=== PATIENT | female | born 1935 | race African-American/Black ===

== ENCOUNTER 2017-06-25 17:47 | Inpatient (IN) | payer MEDICARE, OTHER ==
[~2017-06-25] VITALS: Ht 165.1 cm; Wt 56.4 kg
[2017-06-25 18:20] LABS: BASO % 0 % (0-3); EOS % 0 % (0-3); HEMATOCRIT 49.4 % (39.0-53.0); HEMOGLOBIN 16.1 g/dL (13.0-17.5); LYMPH # 0.7 x10^3/uL (1.0-4.8); LYMPH % 8 % (24-48); MEAN CORPUSCULAR HEMOGLOBIN 31 pg (25-35); MEAN CORPUSCULAR HGB CONC 33 g/dL (31-37); MEAN CORPUSCULAR VOLUME 93 fL (79-100); MONO % 2 % (0-9); NEUT % 90 % (31-73); PLATELET COUNT 160 x10^3/uL (140-400); RED BLOOD COUNT 5.29 x10^6/uL (4.30-5.70); WHITE BLOOD COUNT 8.3 x10^3/uL (4.0-11.0)
[2017-06-25 18:39] LABS: CALCIUM 9.4 mg/dL (8.5-10.1); GFR 87.2; POTASSIUM 4.4 mmol/L (3.5-5.1)
[2017-06-25 18:44] LABS: ALBUMIN 4.3 g/dL (3.4-5.0); ALBUMIN/GLOBULIN RATIO 1.1 (1.0-1.7); TOTAL BILIRUBIN 0.8 mg/dL (0.2-1.0); TOTAL PROTEIN 8.3 g/dL (6.4-8.2)
[2017-06-25 18:55] LABS: PLT ESTIMATE ADEQUATE (ADEQUATE)
[2017-06-25 19:06] LABS: BILIRUBIN,URINE NEGATIVE (NEG); GLUCOSE,URINE >=1000 mg/dL (NEG); NITRITE,URINE NEGATIVE (NEG); PROTEIN,URINE NEGATIVE (NEG-TRACE)
[2017-06-25 19:13] LABS: BACTERIA,URINE 0 /HPF (0-FEW); RBC,URINE 0 /HPF (0-2); SQUAMOUS EPITHELIAL CELL,UR FEW /LPF; WBC,URINE 0 /HPF (0-4)
[2017-06-25] MEDS ORDERED: NAPR500T8 PO (19:41)
[2017-06-25] MEDS ORDERED: TRAM50TA PO (20:08)
[2017-06-25] MEDS ORDERED: ZALE10CA44 PO (20:10)
[2017-06-25] MEDS ORDERED: TRAZ50TA15 PO (20:12)
[2017-06-25] MEDS ORDERED: PRED-220 PO (20:13)
[2017-06-25] MEDS ORDERED: LOSA25TA4 PO (20:13)
[2017-06-25] MEDS ORDERED: LIDOCAINE 2%/EPI 1:100,000 20 ML VIAL. IJ ONE (20:15)
[2017-06-25] MEDS ORDERED: fentaNYL PF VIAL 100 MCG/2 ML VIAL IV ONE (20:15)
[2017-06-25] MEDS ORDERED: BACITRACIN 50,000 UNIT in IV NORMAL SALINE 250ML 250 ML IRR ONE (20:15)
[2017-06-25] MEDS ORDERED: MIDAZOLAM HCL/PF 5 MG/5 ML VIAL. IV ONE (20:15)
--- NOTE | 2017-06-25 20:23 | PDOC ---
MODERATE SEDATION ASSESSMENT RISKS/ALTERNATIVES Risks/Alternatives Risks and alternatives of this type of sedation and procedure discussed with: RISK/ALTERNATIVES: Patient H & P ON CHART H & P H & P on chart and reviewed for co-morbid conditions and appropriate labs. H&P ON CHART: Yes STATUS PREG STATUS ASSESSED: Yes MEDS/ALLERGIES REVIEWED Meds/Allergies Reviewed Medications and Allergies including time and route of recently administered narcotics and sedatives. MEDS/ALLERGIES REVIEWED: Yes ASA RATING ASA RATING: II AIRWAY ASSESSMENT Airway Assessment Airway patency, oral function limitations, presence of caps, crowns, dentures, partials, and ability to extend neck assessed. AIRWAY ASSESSMENT: Yes MALLAMPATI SCORE MALLAMPATI SCORE: II PRE-SEDATION ASSESSMENT PRE-SEDATION ASSESSMENT: Yes OMERO YU MD Jun 25, 2017 20:23
--- NOTE | 2017-06-25 20:29 | PDOC2 ---
CONSULT Date of Consult Date of Consult DATE: 06/25/17 TIME: 20:24 Reason for Consult Reason for Consult: Bradycardia, third-degree heart block Referring Physician Referring Physician: Dr. Diane Identification/Chief Complaint Chief Complaint Weakness, fatigue and lightheadedness Problems: History of Present Illness Reason for Visit: This patient is a very pleasant 81-year-old lady that is active. For several days she has been feeling very weak and fatigued and she went today to see her family doctor. She was found to be bradycardic and referred to the emergency room. After arrival in the emergency room when she was monitored we saw that she was eating third degree complete heart block. The patient's ventricular rate was 30. She states that she has been having problems for the last few days trying to do anything and states that she feels faint at times especially if she tries to get up. The patient denies any prior heart problems. At the time that I saw the patient in the emergency room she was secondary talking to me with a heart rate of about 30 and in atrial rate of about 76. Past Medical History Cardiovascular: HTN Pulmonary: COPD Current Medications Current Medications Current Medications Dopamine HCl/ Dextrose 250 ml @ 0 mls/hr 1X ONCE IV ; Start 06/25/17 at 18:15; Stop 06/25/17 at 18:16; Status DC Midazolam HCl (Versed) 5 mg 1X ONCE IV ; Start 06/25/17 at 20:15; Stop at 20:16; Status DC Fentanyl Citrate (Fentanyl 2ml Vial) 100 mcg 1X ONCE IV ; Start 06/25/17 at 20: 15; Stop 06/25/17 at 20:16; Status DC Lidocaine/ Epinephrine (Xylocaine 2%-Epi 1:100,000) 40 ml 1X ONCE IJ ; Start at 20:15; Stop 06/25/17 at 20:16; Status DC Bacitracin 00550 unit/Sodium Chloride 250 ml @ 0 mls/hr 1X ONCE IRR ; Start at 20:15; Stop 06/25/17 at 20:16; Status DC Cefazolin Sodium 50 ml @ 100 mls/hr 1X ONCE IV ; Start 06/25/17 at 20:15; Stop 06/25/17 at 20:44 Active Scripts Active Reported Losartan Potassium 25 Mg Tablet 25 Mg PO DAILY Prednisone 10 Mg Tablet 10 Mg PO [id number] Trazodone Hcl 50 Mg Tablet 50 Mg PO HS Sonata (Zaleplon) 10 Mg Capsule 10 Mg PO QHS Tramadol Hcl 50 Mg Tablet 1 Tab PO TID Naproxen 500 Mg Tablet.dr 500 Mg PO Allergies Allergies: Coded Allergies: No Known Drug Allergies (Unverified , 06/25/17) Physical Exam General: Alert, Oriented X3, Cooperative HEENT: PERRLA Lungs: Clear to auscultation Heart: Other (bradycardic, S1, S2, one to 2/6 systolic murmur.) Abdomen: Normal bowel sounds, Soft Extremities: No edema Vitals VITALS Vital Signs Date Time Temp Pulse Resp B/P (MAP) Pulse Ox O2 Delivery O2 Flow Rate FiO2 06/25/17 19:55 34 23 178/73 (108) 94 Room Air 06/25/17 18:00 97.7 97.7 Labs Labs Laboratory Tests Test 06/25/17 18:02 06/25/17 18:50 White Blood Count 8.3 x10^3/uL (4.0-11.0) Red Blood Count 5.29 x10^6/uL (4.30-5.70) Hemoglobin 16.1 g/dL (13.0-17.5) Hematocrit 49.4 % (39.0-53.0) Mean Corpuscular Volume 93 fL (79-100) Mean Corpuscular Hemoglobin 31 pg (25-35) Mean Corpuscular Hemoglobin Concent 33 g/dL (31-37) Red Cell Distribution Width 14.0 % (11.5-14.5) Platelet Count 160 x10^3/uL (140-400) Neutrophils (%) (Auto) 90 % (31-73) Lymphocytes (%) (Auto) 8 % (24-48) Monocytes (%) (Auto) 2 % (0-9) Eosinophils (%) (Auto) 0 % (0-3) Basophils (%) (Auto) 0 % (0-3) Neutrophils # (Auto) 7.5 x10^3uL (1.8-7.7) Lymphocytes # (Auto) 0.7 x10^3/uL (1.0-4.8) Monocytes # (Auto) 0.1 x10^3/uL (0.0-1.1) Eosinophils # (Auto) 0.0 x10^3/uL (0.0-0.7) Basophils # (Auto) 0.0 x10^3/uL (0.0-0.2) Segmented Neutrophils % 90 % (35-66) Band Neutrophils % 2 % (0-9) Lymphocytes % 6 % (24-48) Monocytes % 2 % (0-10) Platelet Estimate Adequate (ADEQUATE) Giant Platelets Occ Sodium Level 139 mmol/L (136-145) Potassium Level 4.4 mmol/L (3.5-5.1) Chloride Level 100 mmol/L (98-107) Carbon Dioxide Level 27 mmol/L (21-32) Anion Gap 12 (6-14) Blood Urea Nitrogen 12 mg/dL (8-26) Creatinine 1.0 mg/dL (0.7-1.3) Estimated GFR (Cockcroft-Gault) 87.2 BUN/Creatinine Ratio 12 (6-20) Glucose Level 257 mg/dL (70-99) Calcium Level 9.4 mg/dL (8.5-10.1) Total Bilirubin 0.8 mg/dL (0.2-1.0) Aspartate Amino Transf (AST/SGOT) 29 U/L (15-37) Alanine Aminotransferase (ALT/SGPT) 37 U/L (16-63) Alkaline Phosphatase 79 U/L (46-116) FU-Ezg-R-Type Natriuretic Peptide 781 pg/mL (0-449) Total Protein 8.3 g/dL (6.4-8.2) Albumin 4.3 g/dL (3.4-5.0) Albumin/Globulin Ratio 1.1 (1.0-1.7) Thyroid Stimulating Hormone (TSH) 0.471 uIU/mL (0.358-3.74) Urine Collection Type Unknown Urine Color Yellow Urine Clarity Clear Urine pH 6.0 Urine Specific [place] 1.015 Urine Protein Negative mg/dL (NEG-TRACE) Urine Glucose (UA) >=1000 mg/dL (NEG) Urine Ketones (Stick) Negative mg/dL (NEG) Urine Blood Negative (NEG) Urine Nitrite Negative (NEG) Urine Bilirubin Negative (NEG) Urine Urobilinogen Dipstick 1.0 mg/dL (0.2 mg/dL) Urine Leukocyte Esterase Negative (NEG) Urine RBC 0 /HPF (0-2) Urine WBC 0 /HPF (0-4) Urine Squamous Epithelial Cells Few /LPF Urine Bacteria 0 /HPF (0-FEW) Urine Mucus Slight /LPF Laboratory Tests Test 06/25/17 18:02 06/25/17 18:50 White Blood Count 8.3 x10^3/uL (4.0-11.0) Red Blood Count 5.29 x10^6/uL (4.30-5.70) Hemoglobin 16.1 g/dL (13.0-17.5) Hematocrit 49.4 % (39.0-53.0) Mean Corpuscular Volume 93 fL (79-100) Mean Corpuscular Hemoglobin 31 pg (25-35) Mean Corpuscular Hemoglobin Concent 33 g/dL (31-37) Red Cell Distribution Width 14.0 % (11.5-14.5) Platelet Count 160 x10^3/uL (140-400) Neutrophils (%) (Auto) 90 % (31-73) Lymphocytes (%) (Auto) 8 % (24-48) Monocytes (%) (Auto) 2 % (0-9) Eosinophils (%) (Auto) 0 % (0-3) Basophils (%) (Auto) 0 % (0-3) Neutrophils # (Auto) 7.5 x10^3uL (1.8-7.7) Lymphocytes # (Auto) 0.7 x10^3/uL (1.0-4.8) Monocytes # (Auto) 0.1 x10^3/uL (0.0-1.1) Eosinophils # (Auto) 0.0 x10^3/uL (0.0-0.7) Basophils # (Auto) 0.0 x10^3/uL (0.0-0.2) Segmented Neutrophils % 90 % (35-66) Band Neutrophils % 2 % (0-9) Lymphocytes % 6 % (24-48) Monocytes % 2 % (0-10) Platelet Estimate Adequate (ADEQUATE) Giant Platelets Occ Sodium Level 139 mmol/L (136-145) Potassium Level 4.4 mmol/L (3.5-5.1) Chloride Level 100 mmol/L (98-107) Carbon Dioxide Level 27 mmol/L (21-32) Anion Gap 12 (6-14) Blood Urea Nitrogen 12 mg/dL (8-26) Creatinine 1.0 mg/dL (0.7-1.3) Estimated GFR (Cockcroft-Gault) 87.2 BUN/Creatinine Ratio 12 (6-20) Glucose Level 257 mg/dL (70-99) Calcium Level 9.4 mg/dL (8.5-10.1) Total Bilirubin 0.8 mg/dL (0.2-1.0) Aspartate Amino Transf (AST/SGOT) 29 U/L (15-37) Alanine Aminotransferase (ALT/SGPT) 37 U/L (16-63) Alkaline Phosphatase 79 U/L (46-116) [place]-Uws-H-Type Natriuretic Peptide 781 pg/mL (0-449) Total Protein 8.3 g/dL (6.4-8.2) Albumin 4.3 g/dL (3.4-5.0) Albumin/Globulin Ratio 1.1 (1.0-1.7) Thyroid Stimulating Hormone (TSH) 0.471 uIU/mL (0.358-3.74) Urine Collection Type Unknown Urine Color Yellow Urine Clarity Clear Urine pH 6.0 Urine Specific [place] 1.015 Urine Protein Negative mg/dL (NEG-TRACE) Urine Glucose (UA) >=1000 mg/dL (NEG) Urine Ketones (Stick) Negative mg/dL (NEG) Urine Blood Negative (NEG) Urine Nitrite Negative (NEG) Urine Bilirubin Negative (NEG) Urine Urobilinogen Dipstick 1.0 mg/dL (0.2 mg/dL) Urine Leukocyte Esterase Negative (NEG) Urine RBC 0 /HPF (0-2) Urine WBC 0 /HPF (0-4) Urine Squamous Epithelial Cells Few /LPF Urine Bacteria 0 /HPF (0-FEW) Urine Mucus Slight /LPF Assessment/Plan Assessment/Plan Patient comes in with near syncope and in third-degree complete heart block. Her labs in the ER except for the blood sugar were all normal. In view of this and the patient's situations and history I feel that she needs to have a permanent pacemaker. We discussed the situation options and risks and he was decided to proceed tonight with a insertion of a permanent dual-chamber pacemaker. An informed consent was obtained and the patient is being taken to the catheter lab now. Thank you very much for asking me to participate in the care of this patient OMERO YU MD Jun 25, 2017 20:29
--- NOTE | 2017-06-25 20:49 | PHYS DOC ---
Past Medical History Past Medical History: COPD, Hypertension Past Surgical History: No Surgical History Alcohol Use: None Drug Use: None Adult General Chief Complaint Chief Complaint: OTHER COMPLAINTS HPI HPI Patient is a 81 year old -[place] female with history of hypertension who presents the ED with dizziness past 4 days. Patient was evaluated at her primary care physician's office earlier today and diagnosed with bradycardia with third-degree heart block. Patient arrives by private vehicle walks steady gait. She reports dizziness upon walking. She denies chest pain, palpitations, shortness of breath, rolling. Patient's systolic blood pressures in the 160s. [] Review of Systems Review of Systems Review symptoms as per history of present illness. All other review symptoms are negative. Current Medications Current Medications Current Medications Medications (Trade) Dose Ordered Sig/Keira Start Time Stop Time Status Last Admin Dose Admin Dopamine HCl/ Dextrose 250 ml @ 0 mls/hr 1X ONCE 06/25/17 18:15 06/25/17 18:16 DC Allergies Allergies Allergies Coded Allergies Type Severity Reaction Last Updated Verified No Known Drug Allergies 06/25/17 No Physical Exam Physical Exam Constitutional: Well developed, well nourished, no acute distress, non-toxic appearance. HENT: Normocephalic, atraumatic, bilateral external ears normal, oropharynx moist, no oral exudates, nose normal. Eyes: PERRLA, EOMI, conjunctiva normal, no discharge. Neck: Normal range of motion, no tenderness, supple, no stridor. Cardiovascular: Bradycardic.. Lungs & Thorax: Bilateral breath sounds clear to auscultation Abdomen: Bowel sounds normal, soft, no tenderness, no masses, no pulsatile masses. Skin: Warm, dry, no erythema, no rash. Back: No tenderness, no CVA tenderness. Extremities: No tenderness, no cyanosis, no clubbing, ROM intact, no edema. Neurologic: Alert and oriented X 3, normal motor function, normal sensory function, no focal deficits noted. Psychologic: Affect normal, judgement normal, mood normal. Current Patient Data Vital Signs Vital Signs Date Time Temp Pulse Resp B/P (MAP) Pulse Ox O2 Delivery O2 Flow Rate FiO2 06/25/17 18:52 34 24 195/74 (114) 94 Room Air 06/25/17 18:00 97.7 97.7 Lab Values Laboratory Tests Test 06/25/17 18:02 06/25/17 18:50 White Blood Count 8.3 x10^3/uL (4.0-11.0) Red Blood Count 5.29 x10^6/uL (4.30-5.70) Hemoglobin 16.1 g/dL (13.0-17.5) Hematocrit 49.4 % (39.0-53.0) Mean Corpuscular Volume 93 fL (79-100) Mean Corpuscular Hemoglobin 31 pg (25-35) Mean Corpuscular Hemoglobin Concent 33 g/dL (31-37) Red Cell Distribution Width 14.0 % (11.5-14.5) Platelet Count 160 x10^3/uL (140-400) Neutrophils (%) (Auto) 90 % (31-73) H Lymphocytes (%) (Auto) 8 % (24-48) L Monocytes (%) (Auto) 2 % (0-9) Eosinophils (%) (Auto) 0 % (0-3) Basophils (%) (Auto) 0 % (0-3) Neutrophils # (Auto) 7.5 x10^3uL (1.8-7.7) Lymphocytes # (Auto) 0.7 x10^3/uL (1.0-4.8) L Monocytes # (Auto) 0.1 x10^3/uL (0.0-1.1) Eosinophils # (Auto) 0.0 x10^3/uL (0.0-0.7) Basophils # (Auto) 0.0 x10^3/uL (0.0-0.2) Segmented Neutrophils % 90 % (35-66) H Band Neutrophils % 2 % (0-9) Lymphocytes % 6 % (24-48) L Monocytes % 2 % (0-10) Platelet Estimate Adequate (ADEQUATE) Giant Platelets Occ Sodium Level 139 mmol/L (136-145) Potassium Level 4.4 mmol/L (3.5-5.1) Chloride Level 100 mmol/L (98-107) Carbon Dioxide Level 27 mmol/L (21-32) Anion Gap 12 (6-14) Blood Urea Nitrogen 12 mg/dL (8-26) Creatinine 1.0 mg/dL (0.7-1.3) Estimated GFR (Cockcroft-Gault) 87.2 BUN/Creatinine Ratio 12 (6-20) Glucose Level 257 mg/dL (70-99) H Calcium Level 9.4 mg/dL (8.5-10.1) Total Bilirubin 0.8 mg/dL (0.2-1.0) Aspartate Amino Transferase (AST) 29 U/L (15-37) Alanine Aminotransferase (ALT) 37 U/L (16-63) Alkaline Phosphatase 79 U/L (46-116) FW-Fwo-I-Type Natriuretic Peptide 781 pg/mL (0-449) H Total Protein 8.3 g/dL (6.4-8.2) H Albumin 4.3 g/dL (3.4-5.0) Albumin/Globulin Ratio 1.1 (1.0-1.7) Thyroid Stimulating Hormone (TSH) 0.471 uIU/mL (0.358-3.74) Urine Collection Type Unknown Urine Color Yellow Urine Clarity Clear Urine pH 6.0 Urine Specific [place] 1.015 Urine Protein Negative mg/dL (NEG-TRACE) Urine Glucose (UA) >=1000 mg/dL (NEG) Urine Ketones (Stick) Negative mg/dL (NEG) Urine Blood Negative (NEG) Urine Nitrite Negative (NEG) Urine Bilirubin Negative (NEG) Urine Urobilinogen Dipstick 1.0 mg/dL (0.2 mg/dL) Urine Leukocyte Esterase Negative (NEG) Urine RBC 0 /HPF (0-2) Urine WBC 0 /HPF (0-4) Urine Squamous Epithelial Cells Few /LPF Urine Bacteria 0 /HPF (0-FEW) Urine Mucus Slight /LPF Laboratory Tests 06/25/17 18:02 Laboratory Tests 06/25/17 18:02 EKG EKG [EKG: third Degree AV block, rate 30's Radiology/Procedures Radiology/Procedures [] Course & Med Decision Making Course & Med Decision Making Pertinent Labs and Imaging studies reviewed. (See chart for details) [Patient was supposed to be a direct admit to this hospital but was confused and checked into through the emergency department. Patient's family member's currently in the hospital being cared for Dr. Hill. Patient requests that Dr. Hill's care for her as well. Dr. Hill consult at for ED evaluation and management. Patient transferred to [facility] for permanent pacemaker placement. Dr. barry agrees to admit. ] Dragon Disclaimer Dragon Disclaimer This electronic medical record was generated, in whole or in part, using a voice recognition dictation system. Departure Departure Impression: Primary Impression: Third degree AV block Disposition: ADMITTED INPATIENT Admitting Physician: Brice Hill Condition: GUARDED Referrals: KENNETH WTAKINS MD (PCP) LUIS ALBERTO MILES DO Jun 25, 2017 20:49
[2017-06-25] MEDS ORDERED: ONDANSETRON PF 4 MG/2 ML VIAL. IV PRN (21:15)
[2017-06-25] MEDS ORDERED: IOHEXOL 300 MG/ML 100ML VIAL. ONE (21:16)
[2017-06-25] MEDS: IV NORMAL SALINE 1000ML BAG 1,000 ML IV SCH (21:38)
[2017-06-25 21:59] VITALS: BP 137/70
--- NOTE | 2017-06-25 22:12 | PDOC4 ---
PROCEDURE Procedure PROCEDURE NOTE Procedure: Insertion of dual-chamber permanent pacemaker Preoperative diagnosis: Near syncope, symptomatic bradycardia, third-degree heart block. Postoperative diagnosis: Near syncope, symptomatic bradycardia, third-degree heart block. Procedure note: This patient came in with symptomatic bradycardia and found to be in third- degree heart block. I discussed the situation options and risks with the patient and the family and he was decided to proceed with insertion of a permanent pacemaker as an emergency. After obtaining informed consent the patient was taken to the catheter lab. The left shoulder area was prepped and draped in the usual fashion. Antibiotic protocols were followed. The area was infiltrated with Xylocaine. The skin was incised and then with blunt dissection a pocket was created. Using a tool wire Seldinger technique I then placed a sheath in the subclavian vein. Through that sheath a lead was advanced all the way to the RA and then into the RV once I was satisfied with its positioning the lead active fixation device was deployed and thresholds were checked and found to be normal. The sheath was removed. Over the other wire a second peel-away sheath was then advanced and then another pacing lead was advanced all the way to the right atrium. A J stylette was then advanced and with this we were able to position the lead and the active fixation device was then deployed. Thresholds were checked and found to be normal. The peel-away sheath was then removed. Both leads were sustained sutured in place. A pacer generator was then connected to the leads after checking the identity of each lead. These were [employer] Ted pacing leads and his [employer] Ted pacer generator. After the connections were done the function of the generator was checked and found to be normal. The pocket was then irrigated with antibiotic solution and then the generator was placed in the pocket. The pocket was then closed with 3 layers of running sutures. The skin edges were approximated with Dermabond. After the Dermabond was dry, a dressing was applied to the area. The patient was then transferred to her room in satisfactory condition after tolerating the procedure rather well. OMERO YU MD Jun 25, 2017 22:12
[2017-06-25] MEDS ORDERED: HYDROcodone/APAP 5/325MG 1 TAB TABLET PO PRN (22:15)
[2017-06-25 22:39] VITALS: BP 167/73
[2017-06-25] MEDS ORDERED: ZOLPIDEM 5 MG TABLET. PO PRN (23:15)
[2017-06-25 23:37] VITALS: BP 138/73
[2017-06-25 23:43] VITALS: BP 134/69
[2017-06-25] MEDS: traMADol 50 MG TABLET PO SCH (23:46)
[2017-06-25] MEDS: traZODone 50 MG TABLET. PO SCH (23:46)
[2017-06-25 23:58] VITALS: BP 140/75
[2017-06-26] VITALS (9 sets, daily range): BP systolic 113–177; BP diastolic 55–97
[2017-06-26] MEDS ORDERED: NITROGLYCERIN OINT 1 GM PACKET. TP ONE (03:00)
--- NOTE | 2017-06-26 06:41 | EKG ---
[facility] [address] [place] [address] Test Date: 2017-06-26 Test Time: 06:30:47 Pat Name: FLAVIO MANZANO Department: Room: 205 1 Gender: F [employer]: LE : 1935 Requested By: OMERO YU Order Number: [id number] Reading MD: Dar Hernandes Measurements Intervals [place] Rate: 60 P: 65 FL: 190 QRS: 101 QRSD: 176 T: -74 QT: 498 QTc: 503 Interpretive Statements PROBABLE SINUS RHYTHM, CANNOT RULE OUT PACED BEATS LEFT ATRIAL ABNORMALITY RIGHTWARD AXIS NON SPECIFIC INTRAVENTRICULAR BLOCK QRS(T) CONTOUR ABNORMALITY CONSISTENT WITH HIGH LATERAL INFARCT AGE UNDETERMINED ABNORMAL ECG RI6.01 No previous ECG available for comparison Electronically Signed On 07-04-2017 16:32:40 CDT by Dar Hernandes
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
--- NOTE | 2017-06-26 07:43 | EKG ---
[facility] [address] [place] [address] Test Date: 2017-06-25 Test Time: 17:56:29 Pat Name: FLAVIO MANZANO Department: Room: 205 1 Gender: F Hook Up: : 1935 Requested By: ADDISON ROBERTSON Order Number: [id number] Reading MD: Dar Hernandes Measurements Intervals [place] Rate: 35 P: 122 [place]: 218 QRS: 90 QRSD: 134 T: 36 QT: 574 QTc: 438 Interpretive Statements SINUS BRADYCARDIA S1,S2,S3 PATTERN RIGHT BUNDLE BRANCH BLOCK QRS(T) CONTOUR ABNORMALITY CONSIDER ANTEROSEPTAL MYOCARDIAL DAMAGE NON SPECIFIC QRS ABNORMALITY CONSIDER INFERIOR MYOCARDIAL DAMAGE RI6.01 Unconfirmed report No previous ECG available for comparison Electronically Signed On 07-04-2017 12:55:47 CDT by Dar Hernandes
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
[2017-06-26] MEDS: IV NORMAL SALINE 1000ML BAG 1,000 ML IV SCH (10:23)
[2017-06-26] MEDS ORDERED: DEXTROSE 50% 25 GM / 50ML DISP.SYRIN. IV PRN (10:30)
--- NOTE | 2017-06-26 10:31 | PDOC ---
Provider Note Provider Note Pt seen.H&P dictated. #[id number] ADDISON ROBERTSON MD Jun 26, 2017 10:31
[2017-06-26] MEDS ORDERED: IOHEXOL 300 MG/ML 75 ML VIAL IV ONE (10:45)
[2017-06-26] MEDS ORDERED: IOHEXOL 240 MG/ML 50ML VIAL. PO ONE (10:45)
[2017-06-26] MEDS: traMADol 50 MG TABLET PO SCH ×3 (10:46→20:43)
[2017-06-26] MEDS: LINAGLIPTIN 5 MG TABLET PO SCH (10:46)
[2017-06-26] MEDS: LOSARTAN POTASSIUM 25 MG TABLET. PO SCH (10:47)
[2017-06-26] MEDS: predniSONE 10 MG TABLET PO SCH (10:48)
--- NOTE | 2017-06-26 10:53 | HP ---
ADMIT DATE: 06/25/2017 PATIENT LOCATION: 205. REASON FOR ADMISSION TO THE HOSPITAL: Dizziness, bradycardia, third degree heart block. HISTORY OF PRESENT ILLNESS: The patient is a 81-year-old female, patient seen in the office for the first time, she was not happy with her PCP and decided to change the PCP, came to the office with complaints of dizziness and lightheadedness, and she was found to have heart rate of 30. EKG shows third degree heart block. The patient was recommended admission to the hospital, but directly she went home and came back later and came to the Emergency Room, and she was found to have a third-degree heart block, was seen by Cardiology. The patient's family knows Dr. Hill who happened to be there in the Emergency Room at that time and taken to cardiac suite and the patient had a dual chamber permanent pacemaker placed. PAST MEDICAL HISTORY: History of hypertension, lately she has been dizzy, chronic obstructive pulmonary disease. Denies any history of previous heart problems. PAST SURGICAL HISTORY: No major surgeries. ALLERGIES: No known drug allergies. MEDICATIONS: At home, she is taking trazodone 50 mg for sleep, tramadol for pain, naproxen, losartan 25 mg, she was on hold secondary to dizziness. PERSONAL HISTORY: Smoked at least 1 pack for 30 years, cut down to 1/3 pack lately. Denies alcohol or street drugs. FAMILY HISTORY: Positive for hypertension, diabetes, heart disease. REVIEW OF SYMPTOMS: CARDIAC: Denies any chest pain. GASTROINTESTINAL: No nausea or vomiting. The patient has lost significant weight, 20 pounds in the last 3 months. Rest of the 14-system was reviewed and negative. PHYSICAL EXAMINATION: GENERAL: The patient is not in any distress. VITAL SIGNS: At the time of admission shows temperature 97, pulse 36, respirations 16, blood pressure 170/72, 100% on room air. HEENT: Head is atraumatic. Pupils equal. Oral cavity: No congestion. No teeth. NECK: Supple. CHEST: Symmetrical, had a pacemaker placed around left side of the chest, some bulge present. CARDIOVASCULAR: S1, S2. No murmurs. LUNGS: Clear to auscultation. Decreased breath sounds. ABDOMEN: Soft. No mass palpable. EXTERNAL GENITALIA: No Zimmer. RECTAL: Deferred. EXTREMITIES: No calf tenderness, no edema. Pulses 1+. NEUROLOGIC: Cranial nerves intact. Power 5/5 in all extremities. LABORATORY DATA: Shows a white count of 8, hemoglobin 16, platelets 160. Electrolytes show sodium 139, potassium 4.4, chloride 100, bicarbonate 27, BUN 12, creatinine 1.0, glucose 257. Liver function tests were normal. BNP 781. Albumin 4.3. TSH 0.4. Urine is negative except for sugar more than 1000 in the urine. Chest x-ray shows emphysema. EKG showed third-degree heart block. FINAL IMPRESSION: 1. Dizziness secondary to bradycardia. 2. Third-degree atrioventricular block. 3. Emphysema. 4. New onset of diabetes. 5. Significant weight loss. 6. History of smoking. PLAN: At this time, was admit to the hospital, had a permanent pacemaker placed by Cardiology, dual chamber. We will get a CT scan chest, abdomen and pelvis for weight loss, rule out other causes. The patient is found to be diabetic. We will check A1c, start on sliding scale insulin and start on Tradjenta. Check cholesterol, thyroid and see how the patient's condition improves. Smoking counseling was done. I would recommend flu and pneumonia shot at the time of discharge. ADDISON ROBERTSON MD DR: KITA/birdie JOB#: [id number] / [id number]
[2017-06-26] MEDS: INSULIN ASPART 300 UNITS/3 ML INSULN.PEN SQ SCH ×2 (12:00→17:00)
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
--- NOTE | 2017-06-26 16:13 | PDOC ---
PROGRESS NOTES Subjective Subjective No chest pains. She is very weak. Pacemaker functioning normally. Chest x-ray shows no pneumothorax. Objective Objective Vital Signs Date Time Temp Pulse Resp B/P (MAP) Pulse Ox O2 Delivery O2 Flow Rate FiO2 06/26/17 11:46 17 97 Room Air 06/26/17 11:00 97.8 60 177/97 (123) 97.8 06/25/17 21:59 2.0 Physical Exam Physical Exam No significant changes in cardiac exam Assessment Assessment Patient has a pacemaker that is functioning normally. We need to get her blood pressure controlled with medications. I agree with present plan. Home soon. Problems Medical Problems: (1) Third degree AV block Status: Acute Comment Review of Relevant I have reviewed the following items dusty (where applicable) has been applied. Labs Laboratory Tests Test 06/25/17 18:02 06/25/17 18:50 06/26/17 12:19 White Blood Count 8.3 x10^3/uL (4.0-11.0) Red Blood Count 5.29 x10^6/uL (4.30-5.70) Hemoglobin 16.1 g/dL (13.0-17.5) Hematocrit 49.4 % (39.0-53.0) Mean Corpuscular Volume 93 fL (79-100) Mean Corpuscular Hemoglobin 31 pg (25-35) Mean Corpuscular Hemoglobin Concent 33 g/dL (31-37) Red Cell Distribution Width 14.0 % (11.5-14.5) Platelet Count 160 x10^3/uL (140-400) Neutrophils (%) (Auto) 90 % (31-73) Lymphocytes (%) (Auto) 8 % (24-48) Monocytes (%) (Auto) 2 % (0-9) Eosinophils (%) (Auto) 0 % (0-3) Basophils (%) (Auto) 0 % (0-3) Neutrophils # (Auto) 7.5 x10^3uL (1.8-7.7) Lymphocytes # (Auto) 0.7 x10^3/uL (1.0-4.8) Monocytes # (Auto) 0.1 x10^3/uL (0.0-1.1) Eosinophils # (Auto) 0.0 x10^3/uL (0.0-0.7) Basophils # (Auto) 0.0 x10^3/uL (0.0-0.2) Segmented Neutrophils % 90 % (35-66) Band Neutrophils % 2 % (0-9) Lymphocytes % 6 % (24-48) Monocytes % 2 % (0-10) Platelet Estimate Adequate (ADEQUATE) Giant Platelets Occ Sodium Level 139 mmol/L (136-145) Potassium Level 4.4 mmol/L (3.5-5.1) Chloride Level 100 mmol/L (98-107) Carbon Dioxide Level 27 mmol/L (21-32) Anion Gap 12 (6-14) Blood Urea Nitrogen 12 mg/dL (8-26) Creatinine 1.0 mg/dL (0.7-1.3) Estimated GFR (Cockcroft-Gault) 87.2 BUN/Creatinine Ratio 12 (6-20) Glucose Level 257 mg/dL (70-99) Calcium Level 9.4 mg/dL (8.5-10.1) Total Bilirubin 0.8 mg/dL (0.2-1.0) Aspartate Amino Transf (AST/SGOT) 29 U/L (15-37) Alanine Aminotransferase (ALT/SGPT) 37 U/L (16-63) Alkaline Phosphatase 79 U/L (46-116) BF-[id number]-[id number]-Type Natriuretic Peptide 781 pg/mL (0-449) Total Protein 8.3 g/dL (6.4-8.2) Albumin 4.3 g/dL (3.4-5.0) Albumin/Globulin Ratio 1.1 (1.0-1.7) Thyroid Stimulating Hormone (TSH) 0.471 uIU/mL (0.358-3.74) Urine Collection Type Unknown Urine Color Yellow Urine Clarity Clear Urine pH 6.0 Urine Specific [place] 1.015 Urine Protein Negative mg/dL (NEG-TRACE) Urine Glucose (UA) >=1000 mg/dL (NEG) Urine Ketones (Stick) Negative mg/dL (NEG) Urine Blood Negative (NEG) Urine Nitrite Negative (NEG) Urine Bilirubin Negative (NEG) Urine Urobilinogen Dipstick 1.0 mg/dL (0.2 mg/dL) Urine Leukocyte Esterase Negative (NEG) Urine RBC 0 /HPF (0-2) Urine WBC 0 /HPF (0-4) Urine Squamous Epithelial Cells Few /LPF Urine Bacteria 0 /HPF (0-FEW) Urine Mucus Slight /LPF Glucose (Fingerstick) 73 mg/dL (70-99) Laboratory Tests Test 06/25/17 18:02 06/25/17 18:50 06/26/17 12:19 White Blood Count 8.3 x10^3/uL (4.0-11.0) Red Blood Count 5.29 x10^6/uL (4.30-5.70) Hemoglobin 16.1 g/dL (13.0-17.5) Hematocrit 49.4 % (39.0-53.0) Mean Corpuscular Volume 93 fL (79-100) Mean Corpuscular Hemoglobin 31 pg (25-35) Mean Corpuscular Hemoglobin Concent 33 g/dL (31-37) Red Cell Distribution Width 14.0 % (11.5-14.5) Platelet Count 160 x10^3/uL (140-400) Neutrophils (%) (Auto) 90 % (31-73) Lymphocytes (%) (Auto) 8 % (24-48) Monocytes (%) (Auto) 2 % (0-9) Eosinophils (%) (Auto) 0 % (0-3) Basophils (%) (Auto) 0 % (0-3) Neutrophils # (Auto) 7.5 x10^3uL (1.8-7.7) Lymphocytes # (Auto) 0.7 x10^3/uL (1.0-4.8) Monocytes # (Auto) 0.1 x10^3/uL (0.0-1.1) Eosinophils # (Auto) 0.0 x10^3/uL (0.0-0.7) Basophils # (Auto) 0.0 x10^3/uL (0.0-0.2) Segmented Neutrophils % 90 % (35-66) Band Neutrophils % 2 % (0-9) Lymphocytes % 6 % (24-48) Monocytes % 2 % (0-10) Platelet Estimate Adequate (ADEQUATE) Giant Platelets Occ Sodium Level 139 mmol/L (136-145) Potassium Level 4.4 mmol/L (3.5-5.1) Chloride Level 100 mmol/L (98-107) Carbon Dioxide Level 27 mmol/L (21-32) Anion Gap 12 (6-14) Blood Urea Nitrogen 12 mg/dL (8-26) Creatinine 1.0 mg/dL (0.7-1.3) Estimated GFR (Cockcroft-Gault) 87.2 BUN/Creatinine Ratio 12 (6-20) Glucose Level 257 mg/dL (70-99) Calcium Level 9.4 mg/dL (8.5-10.1) Total Bilirubin 0.8 mg/dL (0.2-1.0) Aspartate Amino Transf (AST/SGOT) 29 U/L (15-37) Alanine Aminotransferase (ALT/SGPT) 37 U/L (16-63) Alkaline Phosphatase 79 U/L (46-116) FO-Zxc-[id number]-Type Natriuretic Peptide 781 pg/mL (0-449) Total Protein 8.3 g/dL (6.4-8.2) Albumin 4.3 g/dL (3.4-5.0) Albumin/Globulin Ratio 1.1 (1.0-1.7) Thyroid Stimulating Hormone (TSH) 0.471 uIU/mL (0.358-3.74) Urine Collection Type Unknown Urine Color Yellow Urine Clarity Clear Urine pH 6.0 Urine Specific [place] 1.015 Urine Protein Negative mg/dL (NEG-TRACE) Urine Glucose (UA) >=1000 mg/dL (NEG) Urine Ketones (Stick) Negative mg/dL (NEG) Urine Blood Negative (NEG) Urine Nitrite Negative (NEG) Urine Bilirubin Negative (NEG) Urine Urobilinogen Dipstick 1.0 mg/dL (0.2 mg/dL) Urine Leukocyte Esterase Negative (NEG) Urine RBC 0 /HPF (0-2) Urine WBC 0 /HPF (0-4) Urine Squamous Epithelial Cells Few /LPF Urine Bacteria 0 /HPF (0-FEW) Urine Mucus Slight /LPF Glucose (Fingerstick) 73 mg/dL (70-99) Medications Current Medications Dopamine HCl/ Dextrose 250 ml @ 0 mls/hr 1X ONCE IV ; Start 06/25/17 at 18:15; Stop 06/25/17 at 18:16; Status DC Midazolam HCl (Versed) 5 mg 1X ONCE IV Last administered on 06/25/17 21:37; Start 06/25/17 at 20:15; Stop 06/25/17 at 20:16; Status DC Fentanyl Citrate (Fentanyl 2ml Vial) 100 mcg 1X ONCE IV Last administered on 21:37; Start 06/25/17 at 20:15; Stop 06/25/17 at 20:16; Status DC Lidocaine/ Epinephrine (Xylocaine 2%-Epi 1:100,000) 40 ml 1X ONCE IJ Last administered on 06/25/17 21:35; Start 06/25/17 at 20:15; Stop 06/25/17 at 20:16 ; Status DC Bacitracin 35813 unit/Sodium Chloride 250 ml @ 0 mls/hr 1X ONCE IRR Last administered on 06/25/17 21:35; Start 06/25/17 at 20:15; Stop 06/25/17 at 20:16 ; Status DC Cefazolin Sodium 50 ml @ 100 mls/hr 1X ONCE IV Last administered on 21:36; Start 06/25/17 at 20:15; Stop 06/25/17 at 20:44; Status DC Ondansetron HCl (Zofran) 4 mg PRN Q8HRS PRN IV NAUSEA/VOMITING; Start 06/25/17 at 21:15; Stop 06/26/17 at 21:14 Sodium Chloride 1,000 ml @ 75 mls/hr [id number] IV Last administered on 21:38; Start 06/25/17 at 21:03; Stop 06/26/17 at 21:02 Iohexol (Omnipaque 300 Mg/ml) 100 ml STK-MED ONCE .ROUTE ; Start 06/25/17 at 21: 16; Stop 06/25/17 at 21:17; Status DC Cefazolin Sodium 1 gm/Sodium Chloride 50 ml @ 100 mls/hr 1X ONCE IV ; Start at 23:00; Stop 06/25/17 at 23:29; Status Cancel Acetaminophen/ Hydrocodone Bitart (Lortab 5/325) 1 tab PRN Q4HRS PRN PO MILD PAIN Last administered on 06/26/17 06:06; Start 06/25/17 at 22:15 Cefazolin Sodium 1 gm/Sodium Chloride 50 ml @ 100 mls/hr 1X ONCE IV Last administered on 06/26/17 02:11; Start 06/26/17 at 02:00; Stop 06/26/17 at 02:29 ; Status DC Losartan Potassium (Cozaar) 25 mg DAILY PO Last administered on 06/26/17 10:47 ; Start 06/26/17 at 09:00 Prednisone (Prednisone) 10 mg [id number] PO Last administered on 06/26/17 10: 48; Start 06/26/17 at 08:00 Tramadol HCl (Ultram) 50 mg TID PO Last administered on 06/26/17 10:46; Start 06/25/17 at 23:30 Trazodone HCl (Desyrel) 50 mg HS PO Last administered on 06/25/17 23:46; Start 06/25/17 at 23:30 Zolpidem Tartrate (Ambien) 5 mg PRN QHS PRN PO INSOMNIA, MAY REPEAT X1; Start 06/25/17 at 23:15 Nitroglycerin (Nitro-Bid Oint) 1 inch 1X ONCE TP ; Start 06/26/17 at 03:00; Stop 06/26/17 at 03:01; Status Cancel Insulin Aspart (NovoLOG) 0-7 UNITS TIDWMEALS SQ ; Start 06/26/17 at 12:00 Dextrose (Dextrose 50%-Water Syringe) 12.5 gm PRN Q15MIN PRN IV SEE COMMENTS; Start 06/26/17 at 10:30 Linagliptin (Tradjenta) 5 mg DAILY PO Last administered on 06/26/17 10:46; Start 06/26/17 at 10:30 Iohexol (Omnipaque 240 Mg/ml) 30 ml 1X ONCE PO Last administered on 06/26/17 10:45; Start 06/26/17 at 10:45; Stop 06/26/17 at 10:46; Status DC Iohexol (Omnipaque 300 Mg/ml) 75 ml 1X ONCE IV Last administered on 06/26/17 10:45; Start 06/26/17 at 10:45; Stop 06/26/17 at 10:46; Status DC Active Scripts Active Reported Losartan Potassium 25 Mg Tablet 25 Mg PO DAILY Prednisone 10 Mg Tablet 10 Mg PO [id number] Trazodone Hcl 50 Mg Tablet 50 Mg PO HS Sonata (Zaleplon) 10 Mg Capsule 10 Mg PO QHS Tramadol Hcl 50 Mg Tablet 1 Tab PO TID Naproxen 500 Mg Tablet.dr 500 Mg PO Vitals/I & O Vital Sign - Last 24 Hours 06/25/17 06/25/17 06/25/17 06/25/17 18:00 18:22 18:32 18:42 Temp 97.7 97.7 Pulse 36 34 34 34 Resp 16 19 20 22 B/P (MAP) 170/72 (104) 140/62 (88) 164/69 (100) 168/76 (106) Pulse Ox 100 98 96 94 O2 Delivery Room Air Room Air Room Air Room Air 06/25/17 06/25/17 06/25/17 06/25/17 18:52 19:02 19:15 19:25 Pulse 34 34 34 34 Resp 24 21 19 22 B/P (MAP) 195/74 (114) 114/68 (83) 131/68 (89) 175/78 (110) Pulse Ox 94 95 94 93 O2 Delivery Room Air Room Air Room Air Room Air 06/25/17 06/25/17 06/25/17 06/25/17 19:35 19:45 19:55 20:02 Pulse 34 33 34 35 Resp 19 17 23 20 B/P (MAP) 179/62 (101) 153/67 (95) 178/73 (108) 177/77 (110) Pulse Ox 94 94 94 96 O2 Delivery Room Air Room Air Room Air Room Air 06/25/17 06/25/17 06/25/17 06/25/17 20:12 20:22 21:37 21:59 Pulse 35 35 60 Resp 28 19 12 19 B/P (MAP) 148/72 (97) 173/88 (116) Pulse Ox 96 96 100 100 O2 Delivery Room Air Room Air Nasal Cannula Nasal Cannula O2 Flow Rate 2.0 2.0 06/25/17 06/25/17 06/25/17 06/25/17 22:30 22:30 22:39 23:00 Temp 97.5 97.5 Pulse 67 62 Resp 20 20 B/P (MAP) 167/73 (104) Pulse Ox 96 O2 Delivery Room Air Room Air 06/25/17 06/25/17 06/25/17 06/25/17 23:37 23:43 23:46 23:58 Pulse 60 60 60 Resp 22 B/P (MAP) 138/73 (94) 134/69 (90) 140/75 (96) Pulse Ox 94 O2 Delivery Room Air 9/06/26/17 06/26/17 06/26/17 00:58 02:25 02:58 03:00 Temp 97.7 97.7 Pulse 70 62 62 60 Resp 20 B/P (MAP) 118/70 (86) 113/60 (77) 120/55 (76) Pulse Ox 95 97 95 O2 Delivery Room Air Room Air Room Air 06/26/17 06/26/17 06/26/17 06/26/17 03:58 06:06 07:00 07:06 Temp 97.8 97.8 Pulse 60 60 Resp 22 16 20 B/P (MAP) 121/63 (82) 159/79 (105) Pulse Ox 96 97 O2 Delivery Room Air Room Air 06/26/17 06/26/17 06/26/17 06/26/17 08:00 10:46 10:47 11:00 Temp 97.8 97.8 Pulse 60 60 Resp 17 16 B/P (MAP) 159/79 177/97 (123) Pulse Ox 97 97 O2 Delivery Room Air Room Air Room Air 06/26/17 11:46 Resp 17 Pulse Ox 97 O2 Delivery Room Air OMERO YU MD Jun 26, 2017 16:13
--- NOTE | 2017-06-26 16:22 | CARD ---
APPROVED REPORT PROCEDURES Insertion Dual Chamber Pacemaker SEDATION TIME: 76 MINUTES CONCLUSION [facility] PROCEDURE Patient Name: Berta Johnson Number: [id number] Date of : 1935Patient Status: Admitted Inpatient Attending Doctor: Rosa [facility] Number: [id number] PROCEDURE NOTE PROCEDURE Procedure PROCEDURE NOTE Procedure: Insertion of dual-chamber permanent pacemaker Preoperative diagnosis: Near syncope, symptomatic bradycardia, third-degree heart block. Postoperative diagnosis: Near syncope, symptomatic bradycardia, third-degree heart block. Procedure note: This patient came in with symptomatic bradycardia and found to be in third-degree heart block. I discussed the situation options and risks with the patient and the family and he was decided to pro ceed with insertion of a permanent pacemaker as an emergency. After obtaining informed consent the patient was taken to the catheter lab. The left shoulder area was prepped and draped in the usual fashion. Antibiotic protocols were followed. The area was infiltrated with Xylocaine. The skin was incised and then with blunt dissection a pocket was created. Using a tool wire Seldinger technique I then placed a sheath in the subclavian vein. Through that sheath a lead was advanced all the way to the RA and then into the RV once I was satisfi ed with its positioning the lead active fixation device was deployed and thresholds were checked and found to be normal. The sheath was removed. Over the other wire a second peel-away sheath was then advanced and then another pacing lead was adva nced all the way to the right atrium. A J stylette was then advanced and with this we were able to po sition the lead and the active fixation device was then deployed. Thresholds were checked and found to be normal. The peel-away sheath was then removed. Both leads were sustained sutured in place. A pacer generator was then connected to the leads after checking the identity of each lead. These were [employer] pacing leads and his [employer] pacer generator. After the connections were done the function of the generator was checked and found to be normal. The pocket was then irrigated with antibiotic solution and then the generator was placed in the pocke t. The pocket was then closed with 3 layers of running sutures. The skin edges were approximated with Dermabond. After the Dermabond was dry, a dressing was applied to the area. The patient was then transferred to her room in satisfactory condition after tolerating the procedure rather well. OMERO YU [facility] [place] 2016 22:12
[2017-06-26] MEDS ORDERED: ALPRAZolam 0.25 MG TABLET PO PRN (16:45)
[2017-06-26] MEDS: NICOTINE 14MG PATCH. TD SCH (17:00)
[2017-06-26] MEDS: traZODone 50 MG TABLET. PO SCH (20:43)
[2017-06-27 04:16] LABS: CHOLESTEROL/HDL RATIO 1.9
[2017-06-27] MEDS ORDERED: SUFentanil 100 MCG/2 ML AMPUL. ONE (06:27)
[2017-06-27] MEDS ORDERED: ROCURONIUM 100 MG/10 ML VIAL. ONE (06:27)
[2017-06-27] MEDS ORDERED: MIDAZOLAM HCL/PF 2 MG/2 ML VIAL. ONE (06:27)
[2017-06-27] MEDS ORDERED: HEPARIN 30,000 UNIT/30 ML VIAL. ONE ×3 (06:30→08:22)
[2017-06-27] MEDS ORDERED: AMINOCAPROIC ACID 5,000 MG/20 ML VIAL. IV ONE ×3 (06:30)
[2017-06-27] MEDS ORDERED: LIDOCAINE 2% PF Vial for OR 5 ML VIAL. ONE (06:30)
[2017-06-27] MEDS ORDERED: NITROGLYCERIN PREMIX 0 ML IV ONE (06:30)
[2017-06-27] MEDS ORDERED: PHENYLEPHRINE 10 MG/ML VIAL. ONE ×3 (06:30→06:31)
[2017-06-27] MEDS ORDERED: ETOMIDATE 20 MG/10 ML VIAL. IV ONE (06:31)
[2017-06-27] MEDS ORDERED: ISOFLURANE > 120 MINUTES. IH ONE (06:31)
[2017-06-27] MEDS ORDERED: EPINEPHrine 1 MG/ML VIAL ONE (06:58)
[2017-06-27 07:00] VITALS: BP 143/88
[2017-06-27] MEDS ORDERED: LIDOCAINE 1% PF 2 ML VIAL. ONE (07:17)
[2017-06-27] MEDS: INSULIN ASPART 300 UNITS/3 ML INSULN.PEN SQ SCH (08:00)
[2017-06-27] MEDS: LOSARTAN POTASSIUM 25 MG TABLET. PO SCH (08:21)
[2017-06-27] MEDS: LINAGLIPTIN 5 MG TABLET PO SCH (08:21)
[2017-06-27] MEDS: NICOTINE 14MG PATCH. TD SCH (08:21)
[2017-06-27] MEDS: traMADol 50 MG TABLET PO SCH ×2 (08:24→09:20)
[2017-06-27] MEDS: predniSONE 10 MG TABLET PO SCH (08:25)
--- NOTE | 2017-06-27 10:09 | PDOC ---
PROGRESS NOTES Subjective Subjective pt feels ok Objective Objective Vital Signs Date Time Temp Pulse Resp B/P (MAP) Pulse Ox O2 Delivery O2 Flow Rate FiO2 06/27/17 08:24 20 97 Room Air 06/27/17 08:21 60 143/88 06/27/17 07:00 97.8 97.8 06/26/17 19:25 2.0 Physical Exam Abdomen: Normal bowel sounds, Soft Heart: Other (bradycardic, S1, S2, one to 2/6 systolic murmur.) Extremities: No edema General: Alert, Oriented X3, Cooperative HEENT: PERRLA Lungs: Clear to auscultation MUSCULOSKELETAL: No deformity Neuro: Normal speech Psych/Mental Status: Mental status NL Skin: No rashes Diagnosis Problem List Problems Medical Problems: (1) Third degree AV block Status: Acute Assessment Assessment Problems Medical Problems: (1) Third degree AV block Status: Acute FINAL IMPRESSION: 1. Dizziness secondary to bradycardia. 2. Third-degree atrioventricular block. 3. Emphysema. 4. New onset of diabetes. 5. Significant weight loss. 6. History of smoking. PLAN: labs ok ct chest -ve for major problems. ct abd and pelvis neg for major problems. s/p pacemaker . home today. At this time, was admit to the hospital, had a permanent pacemaker placed by Cardiology, dual chamber. We will get a CT scan chest, abdomen and pelvis for weight loss, rule out other causes. The patient is found to be diabetic. We will check A1c, start on sliding scale insulin and start on Tradjenta. Check cholesterol, thyroid and see how the patient's condition improves. Smoking counseling was done. I would recommend flu and pneumonia shot at the time of discharge. Problems: Plan Plan of Care Problems Medical Problems: (1) Third degree AV block Status: Acute Comment Review of Relevant I have reviewed the following items dusty (where applicable) has been applied. Labs Laboratory Tests Test 06/26/17 12:19 06/26/17 17:32 06/26/17 20:42 06/27/17 03:30 Glucose (Fingerstick) 73 mg/dL (70-99) 141 mg/dL (70-99) 80 mg/dL (70-99) Triglycerides Level 39 mg/dL (0-150) Cholesterol Level 132 mg/dL (0-200) LDL Cholesterol, Calculated 54 mg/dL (0-100) VLDL Cholesterol, Calculated 8 mg/dL (0-40) Non-HDL Cholesterol Calculated 62 mg/dL (0-129) HDL Cholesterol 70 mg/dL (40-60) Cholesterol/HDL Ratio 1.9 Test 06/27/17 07:55 Glucose (Fingerstick) 69 mg/dL (70-99) Medications Current Medications Alprazolam (Xanax) 0.25 mg PRN Q8HRS PRN PO ANXIETY / AGITATION Last administered on 06/26/17 17:47; Start 06/26/17 at 16:45 Dextrose (Dextrose 50%-Water Syringe) 12.5 gm PRN Q15MIN PRN IV SEE COMMENTS; Start 06/26/17 at 10:30 Insulin Aspart (NovoLOG) 0-7 UNITS TIDWMEALS SQ ; Start 06/26/17 at 12:00 Iohexol (Omnipaque 240 Mg/ml) 30 ml 1X ONCE PO Last administered on 06/26/17 10:45; Start 06/26/17 at 10:45; Stop 06/26/17 at 10:46; Status DC Iohexol (Omnipaque 300 Mg/ml) 75 ml 1X ONCE IV Last administered on 06/26/17 10:45; Start 06/26/17 at 10:45; Stop 06/26/17 at 10:46; Status DC Lidocaine HCl (Xylocaine-Mpf 1% Vial) 2 ml STK-MED ONCE .ROUTE ; Start 06/27/17 at 07:17; Stop 06/27/17 at 07:18; Status DC Linagliptin (Tradjenta) 5 mg DAILY PO Last administered on 06/27/17 08:21; Start 06/26/17 at 10:30 Nicotine (Nicoderm Cq 14mg) 1 patch DAILY TD Last administered on 06/27/17 08: 21; Start 06/26/17 at 17:00 Vitals/I & O Vital Sign - Last 24 Hours 06/26/17 06/26/17 06/26/17 06/26/17 10:46 10:47 11:00 15:00 Temp 97.8 97.6 97.8 97.6 Pulse 60 60 60 Resp 17 16 16 B/P (MAP) 159/79 177/97 (123) 152/90 (110) Pulse Ox 97 97 98 O2 Delivery Room Air Room Air Room Air 06/26/17 06/26/17 06/26/17 06/26/17 19:15 19:25 20:43 21:45 Temp 97.6 97.6 Pulse 62 Resp 18 16 16 B/P (MAP) 142/77 (98) Pulse Ox 94 96 O2 Delivery Room Air Room Air Room Air Room Air O2 Flow Rate 2.0 06/26/17 06/27/17 06/27/17 06/27/17 22:28 07:00 08:00 08:21 Temp 98.0 97.8 98.0 97.8 Pulse 60 60 60 Resp 16 18 B/P (MAP) 167/74 (105) 143/88 (106) 143/88 Pulse Ox 93 97 O2 Delivery Room Air Room Air 06/27/17 08:24 Resp 20 Pulse Ox 97 O2 Delivery Room Air ADDISON ROBERTSON MD Jun 27, 2017 10:09
[2017-06-27] MEDS ORDERED: LINA5TAB4 PO (10:13)
[2017-06-27 11:00] VITALS: BP 132/81
[2017-06-27] MEDS ORDERED: FLU VACC QS2017-18 (36MOS+)/PF 0.5 ML SYRINGE. VAX IM ONE (12:00)
--- NOTE | 2017-06-28 23:03 | PDOC ---
Provider Note Provider Note Discharge summary dictated. #[id number] ADDISON ROBERTSON MD Jun 28, 2017 23:02
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
== END 2017-06-27 12:40 | disposition home or self-care (01) | DRG 244 ==
LOC: ER 17:47 → EDSEX 19:00 → 2 NORTH 19:00
PROVIDERS: ADMIT Internal Medicine; ATTEND Internal Medicine
PROC: 0JH606Z Insertion of Pacemaker, Dual Chamber into Chest Subcutaneous Tissue and Fascia, Open Approach (ICD-10-PCS; principal; 2017-06-25)
PROC: 02H63JZ Insertion of Pacemaker Lead into Right Atrium, Percutaneous Approach (ICD-10-PCS; 2017-06-25)
PROC: 02HK3JZ Insertion of Pacemaker Lead into Right Ventricle, Percutaneous Approach (ICD-10-PCS; 2017-06-25)
DX: I44.2 Atrioventricular block, complete (principal); E27.8 Other specified disorders of adrenal gland; K76.89 Other specified diseases of liver; J44.9 Chronic obstructive pulmonary disease, unspecified; E11.9 Type 2 diabetes mellitus without complications; I10 Essential (primary) hypertension; R00.1 Bradycardia, unspecified; F17.200 Nicotine dependence, unspecified, uncomplicated; J68.4 Chronic respiratory conditions due to chemicals, gases, fumes and vapors; R63.4 Abnormal weight loss; Z82.49 Family history of ischemic heart disease and other diseases of the circulatory system; Z83.3 Family history of diabetes mellitus; Z68.20 Body mass index [BMI] 20.0-20.9, adult; J43.9 Emphysema, unspecified
CPT/HCPCS: 33208; 36415; 71010; 71020; 71260; 74177; 80053; 80061; 81001; 82962; 83036; 83880; 84443; 85007; 85025; 90686; 93005; 99152; 99153; A4314; C1785; C1898; J0171; J0690; J1644; J1815; J2250; J3010; J3490; J7030; J7050; J7512; Q9966; Q9967; 97530; 99285-25; J2001

== ENCOUNTER 2017-09-10 18:42 | Emergency (ER) | payer OTHER ==
[~2017-09-10] VITALS: Ht 170.2 cm; Wt 56.2 kg
[~2017-09-10 18:42] MED LIST: LINA5TAB4 PO; LOSA25TA4 PO; NAPR500T8 PO; PRED-220 PO; TRAM50TA PO; TRAZ50TA15 PO; ZALE10CA44 PO
--- NOTE | 2017-09-10 19:22 | PHYS DOC ---
Past Medical History Past Medical History: COPD, Hypertension Past Surgical History: No Surgical History Additional Past Surgical Histo: pacer Alcohol Use: None Drug Use: None Adult General Chief Complaint Chief Complaint: NAUSEA/VOMITING/DIARRHA HPI HPI Patient is a 82 year old F who presents with nausea/vomiting/diarrhea for the past day. Patient states all day she's been having these symptoms every time she eats she vomits. Patient denies any fevers. Patient denies any abdominal pain. Patient denies any dysuria. Patient states yesterday she was feeling just fine. Patient denies any chest pain or shortness of breath and has no other complaints. Review of Systems Review of Systems GEN: Denies fevers, chills, sweats HEENT: Denies blurred vision, sore throat CV: Denies chest pain RESP: Denies shortness of air, cough GI: + n/v/d NEURO: Denies confusion, dizziness MSK: Denies weakness, joint pain/swelling All other systems were reviewed and found to be within normal limits, except as documented in this note. Current Medications Current Medications Current Medications Medications (Trade) Dose Ordered Sig/Keira Start Time Stop Time Status Last Admin Dose Admin Info (Do NOT chart on this entry -- for MONITORING) 1 each PRN DAILY PRN 09/10/17 22:30 09/12/17 22:29 Iohexol (Omnipaque 300 Mg/ml) 75 ml 1X ONCE 09/10/17 22:30 09/10/17 22:31 DC 09/10/17 22:47 75 ML Metoclopramide HCl (Reglan Vial) 10 mg 1X ONCE 09/10/17 22:30 09/10/17 22:31 DC 09/10/17 22:28 10 MG Ondansetron HCl (Zofran) 4 mg STK-MED ONCE 09/10/17 20:25 09/10/17 20:26 DC Sodium Chloride 1,000 ml @ 1,000 mls/hr 1X ONCE 09/10/17 19:30 09/10/17 20:29 DC 09/10/17 19:30 1,000 MLS/HR Allergies Allergies Allergies Coded Allergies Type Severity Reaction Last Updated Verified No Known Drug Allergies 06/25/17 No Physical Exam Physical Exam GEN.: No apparent distress. Alert and oriented. HEENT: Head is normocephalic, atraumatic NECK: Supple. LUNGS: CTAB. HEART: RRR, S1, S2 present. Peripheral pulses intact ABDOMEN: Soft, nontender. Positive bowel sounds. EXTREMITIES: Without any cyanosis. NEUROLOGIC: Normal speech, normal tone PSYCHIATRIC: Normal affect, normal mood. SKIN: No ulcerations Current Patient Data Vital Signs Vital Signs Date Time Temp Pulse Resp B/P (MAP) Pulse Ox O2 Delivery O2 Flow Rate FiO2 09/10/17 18:48 98.2 60 18 173/87 (115) 95 Room Air 98.2 Lab Values Laboratory Tests Test 09/10/17 18:51 09/10/17 20:17 White Blood Count 9.4 x10^3/uL (4.0-11.0) Red Blood Count 5.14 x10^6/uL (3.50-5.40) Hemoglobin 15.8 g/dL (12.0-15.5) H Hematocrit 47.5 % (36.0-47.0) H Mean Corpuscular Volume 93 fL (79-100) Mean Corpuscular Hemoglobin 31 pg (25-35) Mean Corpuscular Hemoglobin Concent 33 g/dL (31-37) Red Cell Distribution Width 14.3 % (11.5-14.5) Platelet Count 178 x10^3/uL (140-400) Neutrophils (%) (Auto) 77 % (31-73) H Lymphocytes (%) (Auto) 17 % (24-48) L Monocytes (%) (Auto) 6 % (0-9) Eosinophils (%) (Auto) 0 % (0-3) Basophils (%) (Auto) 1 % (0-3) Neutrophils # (Auto) 7.2 x10^3uL (1.8-7.7) Lymphocytes # (Auto) 1.5 x10^3/uL (1.0-4.8) Monocytes # (Auto) 0.5 x10^3/uL (0.0-1.1) Eosinophils # (Auto) 0.0 x10^3/uL (0.0-0.7) Basophils # (Auto) 0.1 x10^3/uL (0.0-0.2) Sodium Level 142 mmol/L (136-145) Potassium Level 3.9 mmol/L (3.5-5.1) Chloride Level 104 mmol/L (98-107) Carbon Dioxide Level 29 mmol/L (21-32) Anion Gap 9 (6-14) Blood Urea Nitrogen 8 mg/dL (7-20) Creatinine 0.8 mg/dL (0.6-1.0) Estimated GFR (Cockcroft-Gault) 83.5 BUN/Creatinine Ratio 10 (6-20) Glucose Level 114 mg/dL (70-99) H Calcium Level 9.6 mg/dL (8.5-10.1) Total Bilirubin 0.6 mg/dL (0.2-1.0) Aspartate Amino Transferase (AST) 33 U/L (15-37) Alanine Aminotransferase (ALT) 32 U/L (14-59) Alkaline Phosphatase 88 U/L (46-116) Total Protein 8.9 g/dL (6.4-8.2) H Albumin 4.5 g/dL (3.4-5.0) Albumin/Globulin Ratio 1.0 (1.0-1.7) Lipase 208 U/L (73-393) Urine Collection Type Unknown Urine Color Yellow Urine Clarity Turbid Urine pH 7.5 Urine Specific [place] 1.015 Urine Protein Negative mg/dL (NEG-TRACE) Urine Glucose (UA) Negative mg/dL (NEG) Urine Ketones (Stick) Negative mg/dL (NEG) Urine Blood Negative (NEG) Urine Nitrite Negative (NEG) Urine Bilirubin Negative (NEG) Urine Urobilinogen Dipstick 1.0 mg/dL (0.2 mg/dL) Urine Leukocyte Esterase Negative (NEG) Urine RBC 0 /HPF (0-2) Urine WBC Occ /HPF (0-4) Urine Squamous Epithelial Cells Few /LPF Urine Amorphous Sediment Present /HPF Urine Bacteria 0 /HPF (0-FEW) Urine Mucus Slight /LPF Urine Yeast Present /HPF Laboratory Tests 09/10/17 18:51 Laboratory Tests 09/10/17 18:51 EKG EKG 1855: EKG shows normal sinus rhythm rate of 60 no STEMI[] Radiology/Procedures Radiology/Procedures CT scan abdomen pelvis NAD[] Course & Med Decision Making Course & Med Decision Making Pertinent Labs and Imaging studies reviewed. (See chart for details) ED course: Patient was seen and examined emergency room basic blood work was ordered along with a CT scan abdomen pelvis Patient is still vomiting therefore 10 mg of Reglan was given On reexamination patient feels much better like to go home. Patient was updated on lab results and CT findings. Patient states she is asymptomatic and no longer has any nausea or vomiting, to go home. Patient states she'll follow-up with her PCP. MDM: After reviewing the chart, CC/HPI/PMH, physical exam, [lab results], [ radiological results], I do not believe the patient has a intra-abdominal emergency warranting further workup and/or admission at this time. I do not believe the patient has emergent medical condition warranting further workup. On reexamination patient asymptomatic when to go home. I think is reasonable to allow the patient to go home with some oral antiemetic medication and short- term follow-up with PCP. Family is at bedside and agrees to plan. Additional verbal discharge instructions were provided to the patient and that if symptoms get worse or any new symptoms arise that are worrisome to the patient she is to return to the emergency room immediately [] Dragon Disclaimer Dragon Disclaimer This electronic medical record was generated, in whole or in part, using a voice recognition dictation system. Departure Departure Impression: Primary Impression: Nausea and vomiting Disposition: 01 HOME, SELF-CARE Condition: IMPROVED Referrals: KENNETH WATKINS MD (PCP) Patient Instructions: Nausea and Vomiting Additional Instructions: Please follow-up with your family physician in the next one to 2 days return if symptoms increase Scripts Ondansetron (ZOFRAN ODT) 4 Mg Tab.rapdis 1 TAB SL Q8HRS, #10 TAB Prov: LACI MURRAY DO 09/10/17 LACI MURRAY DO Sep 10, 2017 19:22
[2017-09-10] MEDS ORDERED: IV NORMAL SALINE 1000ML BAG 1,000 ML IV ONE (19:30)
[2017-09-10 19:31] LABS: BASO # 0.1 x10^3/uL (0.0-0.2); BASO % 1 % (0-3); EOS % 0 % (0-3); HEMATOCRIT 47.5 % (36.0-47.0); HEMOGLOBIN 15.8 g/dL (12.0-15.5); LYMPH # 1.5 x10^3/uL (1.0-4.8); LYMPH % 17 % (24-48); MEAN CORPUSCULAR HEMOGLOBIN 31 pg (25-35); MEAN CORPUSCULAR HGB CONC 33 g/dL (31-37); MEAN CORPUSCULAR VOLUME 93 fL (79-100); MONO % 6 % (0-9); NEUT % 77 % (31-73); PLATELET COUNT 178 x10^3/uL (140-400); RED BLOOD COUNT 5.14 x10^6/uL (3.50-5.40); RED CELL DISTRIBUTION WIDTH 14.3 % (11.5-14.5); WHITE BLOOD COUNT 9.4 x10^3/uL (4.0-11.0)
[2017-09-10 19:55] LABS: CALCIUM 9.6 mg/dL (8.5-10.1); CREATININE 0.8 mg/dL (0.6-1.0); GFR 83.5; POTASSIUM 3.9 mmol/L (3.5-5.1)
[2017-09-10 19:59] LABS: ALBUMIN 4.5 g/dL (3.4-5.0); TOTAL BILIRUBIN 0.6 mg/dL (0.2-1.0); TOTAL PROTEIN 8.9 g/dL (6.4-8.2)
--- NOTE | 2017-09-10 20:12 | EKG ---
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
[2017-09-10 20:20] LABS: BILIRUBIN,URINE NEGATIVE (NEG); GLUCOSE,URINE NEGATIVE (NEG); NITRITE,URINE NEGATIVE (NEG); PH,URINE 7.5; PROTEIN,URINE NEGATIVE (NEG-TRACE)
[2017-09-10] MEDS ORDERED: ONDANSETRON PF 4 MG/2 ML VIAL. ONE (20:25)
[2017-09-10 20:28] LABS: BACTERIA,URINE 0 /HPF (0-FEW); RBC,URINE 0 /HPF (0-2); SQUAMOUS EPITHELIAL CELL,UR FEW /LPF; WBC,URINE OCC /HPF (0-4); YEAST,URINE PRESENT /HPF
[2017-09-10] MEDS ORDERED: ONDANSETRON PF 4 MG/2 ML VIAL. IV ONE (20:30)
[2017-09-10 22:16] VITALS: BP 197/95
[2017-09-10] MEDS ORDERED: IOHEXOL 300 MG/ML 100ML VIAL. IV ONE (22:30)
[2017-09-10] MEDS ORDERED: METOCLOPRAMIDE HCL 10 MG/2 ML VIAL. IV ONE (22:30)
[2017-09-10] MEDS ORDERED: CONTRAST GIVEN MC PRN (22:30)
--- NOTE | 2017-09-10 23:05 | RAD ---
CT SCAN OF THE ABDOMEN AND PELVIS WITH IV CONTRAST. History: Nausea and vomiting Comparison:None. Procedure: Contiguous axial images of the abdomen and pelvis were performed after the administration of 75 cc of Omni 300 IV contrast and oral contrast. CT Abdomen with contrast: Findings: Liver: Multiple small cysts Spleen: Unremarkable Pancreas: The pancreatic duct is mildly dilated Adrenal Glands: Unremarkable Kidneys: Two small cysts on the right There is no mass or lymphadenopathy. There is no free air. There is no free fluid. Impression: No acute findings. End Impression CT Pelvis with Contrast: Findings: The urinary bladder appears normal. There is no free fluid. There is no lymphadenopathy. The appendix is normal. There is sigmoid diverticulosis without surrounding inflammation. Impression: No acute findings. PQRS Compliance Statement: One or more of the following individualized dose reduction techniques were utilized for this examination: 1. Automated exposure control 2. Adjustment of the mA and/or kV according to patient size 3. Use of iterative reconstruction technique Electronically signed by: Winston Akins III, MD (09/10/2017 11:01 PM) [facility]
[2017-09-10] MEDS ORDERED: ONDA4TAB10 SL (23:31)
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
== END 2017-09-10 23:36 | disposition home or self-care (01) ==
LOC: ER 18:42
DX: R11.2 Nausea with vomiting, unspecified (principal); R19.7 Diarrhea, unspecified; R42 Dizziness and giddiness; I10 Essential (primary) hypertension; J44.9 Chronic obstructive pulmonary disease, unspecified
CPT/HCPCS: 36415; 71010; 74177; 80053; 81001; 83690; 85025; 93005; 96361; 96374; 96375; 99285; J2405; J2765; J7030; Q9967

== ENCOUNTER → 2017-10-07 | Day surgery (SDC) | payer OTHER ==
[~2017-10-07] MED LIST changes: +HYDROmorphone 2 MG/ML VIAL IV; +LIDOCAINE 1% PF 2 ML VIAL. ID; -LINA5TAB4 PO; -LOSA25TA4 PO; +MORPHINE SULFATE 2 MG/ML DISP.SYRIN. IV; -NAPR500T8 PO; +ONDANSETRON PF 4 MG/2 ML VIAL. IV; -PRED-220 PO; +PROCHLORPERAZINE 10 MG/2 ML VIAL. IV; +PROPOFOL 40 ML IV; -TRAM50TA PO; -TRAZ50TA15 PO; -ZALE10CA44 PO; +fentaNYL PF VIAL 100 MCG/2 ML VIAL IV
[2017-10-07] MEDS: IV RINGERS,LACTATED 1000ML 1,000 ML IV (11:13)
== END | disposition home or self-care (01) ==
LOC: ENDOS 10:06
DX: D12.2 Benign neoplasm of ascending colon (principal); K57.30 Diverticulosis of large intestine without perforation or abscess without bleeding; K21.0 Gastro-esophageal reflux disease with esophagitis; K29.70 Gastritis, unspecified, without bleeding; K31.89 Other diseases of stomach and duodenum; J44.9 Chronic obstructive pulmonary disease, unspecified; I10 Essential (primary) hypertension; Z95.0 Presence of cardiac pacemaker; M19.90 Unspecified osteoarthritis, unspecified site; F17.200 Nicotine dependence, unspecified, uncomplicated; Z87.39 Personal history of other diseases of the musculoskeletal system and connective tissue; Z86.39 Personal history of other endocrine, nutritional and metabolic disease
CPT/HCPCS: 43239; 88305; 88342; J2704

== ENCOUNTER → 2019-08-12 | Outpatient (CLI) | payer OTHER ==
[2017-10-07 12:02] VITALS: BP 163/97
[~2019-08-12] MED LIST changes: +CYPR4TAB31 PO; -HYDROmorphone 2 MG/ML VIAL IV; -LIDOCAINE 1% PF 2 ML VIAL. ID; +LINA5TAB PO; +LOSA25TA54 PO; +MEGE40TA PO; -MORPHINE SULFATE 2 MG/ML DISP.SYRIN. IV; +NAPR500T8 PO; +NATE60TA2 PO; +ONDA4TAB10 SL; -ONDANSETRON PF 4 MG/2 ML VIAL. IV; +PRED-220 PO; -PROCHLORPERAZINE 10 MG/2 ML VIAL. IV; -PROPOFOL 40 ML IV; +TRAM50TA PO; +TRAZ-118 PO; +ZALE10CA44 PO; -fentaNYL PF VIAL 100 MCG/2 ML VIAL IV
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
== END | disposition home or self-care (01) ==
LOC: RAD 14:04
PROVIDERS: ATTEND Internal Medicine
DX: J44.9 Chronic obstructive pulmonary disease, unspecified (principal); J40 Bronchitis, not specified as acute or chronic
CPT/HCPCS: 71046

== ENCOUNTER → 2019-12-15 | Outpatient (CLI) | payer MEDICARE ==
[2017-10-07 12:02] VITALS: BP 163/97
[~2019-12-15] MED LIST changes: -MEGE40TA PO; +MEGE40TA3 PO
--- NOTE | 2019-12-15 15:02 | CARD ---
MR#: [id number] Date of Study: 12/15/2019 Ordering Physician: MOLLY HERNANDES, Referring Physician: MOLLY HERNANDES, Tech: Yris Abraham [facility] APPROVED REPORT EXAM: Two-dimensional and M-mode echocardiogram with Doppler and color Doppler. Other Information Quality : Good INDICATION Murmur ICD 2D DIMENSIONS RVDd2.0 (2.9-3.5cm)Left Atrium(2D)3.9 (1.6-4.0cm) IVSd1.2 (0.7-1.1cm)Aortic Root(2D)2.9 (2.0-3.7cm) LVDd6.2 (3.9-5.9cm)LVOT Diameter2.2 (1.8-2.4cm) PWd1.0 (0.7-1.1cm)LVDs5.3 (2.5-4.0cm) FS (%) 13.9 %SV56.6 ml Aortic Valve AoV Peak Enoch.117.0cm/sAoV VTI17.8cm AO Peak GR.5.5mmHgLVOT Peak Enoch.108.0cm/s AO Mean GR.3mmHgAVA (VMAX)3.40cm2 MARY (VTI)3.30cm2 Mitral Valve MV E Njqeflvu24.9cm/sMV DECEL PGBZ804zb MV A Qpqyrjcx840.2cm/sE/A Ratio0.5 Tricuspid Valve TR P. Taoiqkfw372mi/sRAP UVRABRHI1iyAf TR Peak Gr.60evNmYWLM28pbPe Pulmonary Vein S1 Pcacesuz84.3cm/sD2 Zedxzhap36.1cm/s LEFT VENTRICLE The Left Ventricle is moderately dilated. There is mild concentric left ventricular hypertrophy. Left ventricle systolic function is severely impaired. The Ejection Fraction is 20-25%. There is severe g lobal hypokinesis of the left ventricle. Transmitral Doppler flow pattern is Grade I-abnormal relaxat ion pattern. RIGHT VENTRICLE The right ventricle is normal size. The right ventricular systolic function is normal. There are whitney ce leads in the right ventricle and atrium. ATRIA The left atrium size is normal. The right atrium size is normal. The interatrial septum is intact wit h no evidence for an atrial septal defect or patent foramen ovale as noted on 2-D or Doppler imaging. AORTIC VALVE The aortic valve is calcified but opens well. Doppler and Color Flow revealed no significant aortic r egurgitation. There is no significant aortic valvular stenosis. MITRAL VALVE The mitral valve is mildly thickened but opens well. There is no evidence of mitral valve prolapse. T here is no mitral valve stenosis. Doppler and Color-flow revealed moderate mitral regurgitation. TRICUSPID VALVE The tricuspid valve is normal in structure and function. Doppler and Color Flow revealed mild tricusp id regurgitation. The PA pressure was estimated at 56 mmHg. There is no tricuspid valve stenosis. PULMONIC VALVE The pulmonary valve is normal in structure and function. Doppler and Color Flow revealed mild pulmoni c valvular regurgitation. There is no pulmonic valvular stenosis. GREAT VESSELS The aortic root is normal in size. The ascending aorta is normal in size. The IVC is normal in size a nd collapses >50% with inspiration. PERICARDIAL EFFUSION There is no evidence of significant pericardial effusion. Critical Notification Critical Value: No <Conclusion> The Left Ventricle is moderately dilated. Left ventricle systolic function is severely impaired. The Ejection Fraction is 20-25%. There is severe global hypokinesis of the left ventricle. There is mild concentric left ventricular hypertrophy. There are device leads in the right ventricle and atrium. Doppler and Color Flow revealed no significant aortic regurgitation. There is no significant aortic valvular stenosis. Doppler and Color-flow revealed moderate mitral regurgitation. Doppler and Color Flow revealed mild tricuspid regurgitation. The PA pressure was estimated at 56 mmHg. Signed by : Molly Hernandes MD Electronically Approved : 12/15/2019 15:02:16
== END | disposition home or self-care (01) ==
LOC: ECHO 12:57
PROVIDERS: ATTEND Internal Medicine Cardiovascular Disease
DX: I08.1 Rheumatic disorders of both mitral and tricuspid valves (principal); R01.1 Cardiac murmur, unspecified
CPT/HCPCS: 93306

== ENCOUNTER → 2020-09-15 | Outpatient (CLI) | payer MEDICARE ==
[2017-10-07 12:02] VITALS: BP 163/97
--- NOTE | 2020-09-15 14:35 | CARD ---
MR#: [id number] Date of Study: 09/15/2020 Ordering Physician: DAR HERNANDES, Referring Physician: DAR HERNANDES, Tech: APPROVED REPORT EXAM: Two-dimensional and M-mode echocardiogram with Doppler and color Doppler. INDICATION Dyspnea 2D DIMENSIONS Left Atrium(2D)5.5 (1.6-4.0cm)IVSd1.1 (0.7-1.1cm) Aortic Root(2D)3.0 (2.0-3.7cm)LVDd5.1 (3.9-5.9cm) LVOT Diameter2.4 (1.8-2.4cm)PWd1.1 (0.7-1.1cm) LVDs4.4 (2.5-4.0cm)FS (%) 13.6 % SV35.8 ml Aortic Valve AoV Peak Enoch.192.6cm/sAoV VTI37.9cm AO Peak GR.14.8mmHgLVOT Peak Enoch.110.4cm/s AO Mean GR.8mmHgAVA (VMAX)2.56cm2 Pulmonary Valve PV Peak Cslxfzpv789.3cm/s Tricuspid Valve TR P. Ypvkgmso951gq/sTR Peak Gr.30mmHg LEFT VENTRICLE The left ventricle is upper limits of normal in size. There is borderline concentric left ventricular hypertrophy. The ejection fraction is moderately impaired. Ejection fraction is 30-35%. There is gl obal hypokinesis of the left ventricle. RIGHT VENTRICLE The right ventricle is normal size. The right ventricle is mildly hypertrophied. The right ventricula r systolic function is normal. ATRIA The left atrium is mildly dilated. The right atrium is mildly dilated. The interatrial septum is inta ct with no evidence for an atrial septal defect or patent foramen ovale as noted on 2-D or Doppler im aging. AORTIC VALVE The aortic valve is normal in structure and function. Doppler and Color Flow revealed no significant aortic regurgitation. There is no significant aortic valvular stenosis. MITRAL VALVE The mitral valve is normal in structure and function. There is no evidence of mitral valve prolapse. There is no mitral valve stenosis. Doppler and Color-flow revealed moderate mitral regurgitation. TRICUSPID VALVE The tricuspid valve is normal in structure and function. Doppler and Color Flow revealed mild tricusp id regurgitation. PULMONIC VALVE The pulmonary valve is normal in structure and function. Doppler and Color Flow revealed trace to mil d pulmonic valvular regurgitation. GREAT VESSELS The aortic root is normal in size. The ascending aorta is normal in size. The pulmonary artery is nor mal. The IVC is normal in size and collapses >50% with inspiration. PERICARDIAL EFFUSION There is no evidence of significant pericardial effusion. Critical Notification Critical Value: No <Conclusion> The left ventricle is upper limits of normal in size. The ejection fraction is moderately impaired. Ejection fraction is 30-35%. There is global hypokinesis of the left ventricle. There is borderline concentric left ventricular hypertrophy. Doppler and Color Flow revealed no significant aortic regurgitation. There is no significant aortic valvular stenosis. Doppler and Color-flow revealed moderate mitral regurgitation. Doppler and Color Flow revealed mild tricuspid regurgitation. Signed by : Dar Hernandes MD Electronically Approved : 09/15/2020 14:35:23
== END ==
LOC: ECHO 13:56
PROVIDERS: ATTEND Internal Medicine Cardiovascular Disease
DX: I08.8 Other rheumatic multiple valve diseases (principal)
CPT/HCPCS: 93306

== ENCOUNTER 2021-03-10 18:37 | Inpatient (IN) | payer MEDICARE ==
[~2021-03-10] VITALS: Ht 160 cm; Wt 60.2 kg
--- NOTE | 2021-03-10 20:20 | PHYS DOC ---
Past Medical History Past Medical History: COPD, Hypertension Past Surgical History: No Surgical History Additional Past Surgical Histo: pacer Smoking Status: Current Every Day Smoker Alcohol Use: None Drug Use: None General Adult EDM: Chief Complaint: RECTAL BLEED HPI: HPI: 85 yo F medical history of COPD and hypertension presents to the ED with her granddaughter (patient consents to his/her/their knowledge and involvement in pts' medical care), complaints of bright red blood in her stool for the past 3 days, was seen by her primary care physician. Last colonoscopy was 3 years ago. No history of GI bleeding, anemia or blood transfusions. Review of Systems: Review of Systems: Constitutional: Denies fever or chills. [] Eyes: Denies change in visual acuity. [] HENT: Denies nasal congestion or sore throat. [] Respiratory: Denies cough or shortness of breath. [] Cardiovascular: Denies chest pain or edema. [] GI: Denies nausea, vomiting, abdominal pain : Denies dysuria or vaginal bleeding Musculoskeletal: Denies back pain or joint pain. [] Integument: Denies rash or diaphoresis Neurologic: Denies headache, focal weakness or sensory changes. [] Endocrine: Denies polyuria or polydipsia. [] Lymphatic: Denies swollen glands. [] Psychiatric: Denies depression or anxiety. [] Heart Score: C/O Chest Pain: No Risk Factors: Risk Factors: DM, Current or recent (<one month) smoker, HTN, HLP, family history of CAD, obesity. Risk Scores: Score 0 - 3: 2.5% MACE over next 6 weeks - Discharge Home Score 4 - 6: 20.3% MACE over next 6 weeks - Admit for Clinical Observation Score 7 - 10: 72.7% MACE over next 6 weeks - Early Invasive Strategies Allergies: Allergies: Allergies Coded Allergies Type Severity Reaction Last Updated Verified No Known Drug Allergies 10/07/17 No Physical Exam: PE: Constitutional: Well developed, well nourished, no acute distress, non-toxic appearance, thin HENT: Normocephalic, atraumatic, Eyes: EOMI, conjunctiva normal, no discharge. 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 [] Back: No tenderness, no CVA tenderness. [] Extremities: No tenderness, no cyanosis, Neurologic: Alert to self and year, not month/slow recall, normal motor function, normal sensory function, no focal deficits noted. [] Psychologic: Affect normal, judgement normal, mood normal.-smiling/sassy and makes jokes Rectal exam: chaperoned, 1 small nonthrombosed hemorrhoid, hematochezia present, scant stool on rectal exam Current Patient Data: Vital Signs: Vital Signs Date Time Temp Pulse Resp B/P (MAP) Pulse Ox O2 Delivery O2 Flow Rate FiO2 03/10/21 18:46 98.3 58 22 151/78 (102) 99 Room Air 98.3 EKG: EKG: Sinus rhythm at 62 bpm, left axis deviation, QTC 506, no ST elevations or ST depressions, qtc 506, no active cp Radiology/Procedures: Radiology/Procedures: IMAGING REPORT Signed PATIENT: FLAVIO MANZANO JACCOUNT: [id number] : 1935 LOCATION: ER AGE: 85 SEX: F EXAM STATUS: REG ER ORD. PHYSICIAN: PANDA MAXWELL DO REASON: hematochezia, OMNI 300 75 ML IV PROCEDURE: CT ABD PELV W/ IV CONTRST ONLY Exam: CT of abdomen and pelvis with contrast INDICATION: Hematochezia TECHNIQUE: Sequential axial images through the abdomen and pelvis obtained following the administration of 75 mL of Isovue-370 IV contrast. Sagittal and coronal reformatted images were reconstructed from the axial data and reviewed. Exposure: One or more of the following in the visualized dose reduction techniques were utilized for this examination: 1. Automated exposure control 2. Adjustment of the MA and/or KV according to patient size 3. Use of iterative of reconstructive technique Comparisons: None FINDINGS: Heart is mildly enlarged. No pericardial effusion. Visualized lung bases are clear. No pleural effusion. Several hypoattenuating lesions noted in the liver favored represent cysts. Spleen, pancreas, gallbladder and adrenals are unremarkable. No perinephric inflammation or hydronephrosis. No renal or ureteral calculi. Bladder is partially distended and not well evaluated. Prostate is not enlarged. Diverticulosis is noted at the sigmoid colon without evidence of acute diverticulitis. Moderate amount stool is noted in the colon. No free intra- abdominal air or fluid. No obstruction. Abdominal aorta has a normal course and caliber. No enlarged intra-abdominal lymph nodes are identified. No suspicious osseous lesions or acute fractures. IMPRESSION: 1. Diverticulosis without evidence of acute diverticulitis. 2. No acute process identified within the abdomen or pelvis. 3. Large amount stool noted in the colon. Correlate for constipation. Electronically signed by: Krystian Holder MD (03/10/2021 9:59 PM) [facility] DICTATED and SIGNED BY: KRYSTIAN HOLDER MD DATE: 03/10/[id number] 0 IMAGING REPORT Signed PATIENT: FLAVIO MANZANO JACCOUNT: [id number] : 1935 LOCATION: ER AGE: 85 SEX: F EXAM STATUS: REG ER ORD. PHYSICIAN: PANDA MAXWELL DO REASON: hematochezia PROCEDURE: PORTABLE CHEST 1V XR CHEST 1V 03/10/2021 9:17 PM INDICATION: Hematochezia COMPARISON: 08/12/2019 TECHNIQUE: Portable frontal view of the chest is provided. FINDINGS: The cardiomediastinal silhouette is similar in appearance. Metallic debris along the left chest appears stable. Left chest wall cardiac device is identified in similar position. There are no significant pleural effusions. There is no pulmonary vascular congestion. No pneumothorax. No suspicious osseous abnormality. IMPRESSION: There is no acute cardiopulmonary process. Electronically signed by: Alma Carrizales MD (03/10/2021 9:21 PM) [facility] DICTATED and SIGNED BY: ALMA CARRIZALES MD DATE: 03/10/[id number] 0 Impression: Stoddard Score for Safe Discharge After Lower GI Bleed 98 % Probability of safe discharge (absence of rebleeding, blood transfusion, therapeutic intervention, 28 day readmission, or ). Consider discharge, with appropriate precautions. Course & Med Decision Making: Course & Med Decision Making Pertinent Labs and Imaging studies reviewed. (See chart for details) Concern for hematochezia, suspect hemorrhoid related x2 days vs diverticular bleed. Patient is hemodynamically stable, no anemia. Patient not on any antic oagulants. I reviewed photo on daughter's iPhone - toilet basin with blood and large clots. Spoke with Dr. Robertson who is concerned for diverticular bleed and is recommending GI consult with bleeding scan in a.m. Will admit for further medical management. Patient stable time admission and agrees with this plan. I have spoken with the patient and/or caregivers-patient's daughter. I have explained the patient's condition, diagnosis and treatment plan based on the information available to me at this time. I have answered the patient's and/or caregivers questions and answered any concerns. The patient and/or caregivers have as good an understanding of the patient's diagnosis, condition and treatment plan as can be expected at this point. The patient has been stabilized within the capability of the emergency department. The patient will be transported for further care and management or will be moved to an observation or inpatient service. I have communicated with the staff or medical practitioner taking over this patient's care. David Disclaimer: David Disclaimer: This electronic medical record was generated, in whole or in part, using a voice recognition dictation system. Departure Departure Impression: Primary Impression: Hematochezia Disposition: ADMITTED INPATIENT Admitting Physician: Rosa Robertson Condition: STABLE Referrals: ROSA ROBERTSON MD (PCP) PANDA MAXWELL DO Mar 10, 2021 20:20
[2021-03-10 21:11] LABS: BASO # 0.1 x10^3/uL (0.0-0.2); BASO % 1 % (0-3); EOS # 0.2 x10^3/uL (0.0-0.7); EOS % 2 % (0-3); HEMATOCRIT 38.6 % (36.0-47.0); HEMOGLOBIN 12.9 g/dL (12.0-15.5); LYMPH # 1.7 x10^3/uL (1.0-4.8); LYMPH % 18 % (24-48); MEAN CORPUSCULAR HEMOGLOBIN 32 pg (25-35); MEAN CORPUSCULAR HGB CONC 33 g/dL (31-37); MEAN CORPUSCULAR VOLUME 95 fL (79-100); MONO # 1.2 x10^3/uL (0.0-1.1); MONO % 12 % (0-9); NEUT # 6.5 x10^3/uL (1.8-7.7); NEUT % 68 % (31-73); PLATELET COUNT 217 x10^3/uL (140-400); RED BLOOD COUNT 4.08 x10^6/uL (3.50-5.40); RED CELL DISTRIBUTION WIDTH 14.1 % (11.5-14.5); WHITE BLOOD COUNT 9.7 x10^3/uL (4.0-11.0)
[2021-03-10 21:21] LABS: PROTHROMBIN TIME PATIENT 13.8 SEC (11.7-14.0)
[2021-03-10 21:24] LABS: CALCIUM 8.6 mg/dL (8.5-10.1); CREATININE 0.9 mg/dL (0.6-1.0); GFR 72.4; POTASSIUM 4.8 mmol/L (3.5-5.1)
--- NOTE | 2021-03-10 21:24 | RAD ---
XR CHEST 1V 03/10/2021 9:17 PM INDICATION: Hematochezia COMPARISON: 08/12/2019 TECHNIQUE: Portable frontal view of the chest is provided. FINDINGS: The cardiomediastinal silhouette is similar in appearance. Metallic debris along the left chest appea rs stable. Left chest wall cardiac device is identified in similar position. There are no significant pleural effusions. There is no pulmonary vascular congestion. No pneumothora x. No suspicious osseous abnormality. IMPRESSION: There is no acute cardiopulmonary process. Electronically signed by: Tennille Carroll MD (03/10/2021 9:21 PM) [facility]
[2021-03-10 21:30] LABS: ALBUMIN 3.6 g/dL (3.4-5.0); ALBUMIN/GLOBULIN RATIO 1.1 (1.0-1.7); TOTAL BILIRUBIN 0.4 mg/dL (0.2-1.0); TOTAL PROTEIN 6.9 g/dL (6.4-8.2)
[2021-03-10] MEDS ORDERED: CONTRAST GIVEN. MC PRN (21:30)
[2021-03-10] MEDS ORDERED: IOHEXOL 300 MG/ML 100ML VIAL. IV ONE (21:30)
--- NOTE | 2021-03-10 22:02 | RAD ---
Exam: CT of abdomen and pelvis with contrast INDICATION: Hematochezia TECHNIQUE: Sequential axial images through the abdomen and pelvis obtained following the administrati on of 75 mL of Isovue-370 IV contrast. Sagittal and coronal reformatted images were reconstructed fro m the axial data and reviewed. Exposure: One or more of the following in the visualized dose reduction techniques were utilized for this examination: 1. Automated exposure control 2. Adjustment of the MA and/or KV according to patient size 3. Use of iterative of reconstructive technique Comparisons: None FINDINGS: Heart is mildly enlarged. No pericardial effusion. Visualized lung bases are clear. No pleural effusi on. Several hypoattenuating lesions noted in the liver favored represent cysts. Spleen, pancreas, gallbla dder and adrenals are unremarkable. No perinephric inflammation or hydronephrosis. No renal or ureteral calculi. Bladder is partially distended and not well evaluated. Prostate is not enlarged. Diverticulosis is noted at the sigmoid colon without evidence of acute diverticulitis. Moderate amoun t stool is noted in the colon. No free intra-abdominal air or fluid. No obstruction. Abdominal aorta has a normal course and caliber. No enlarged intra-abdominal lymph nodes are identified. No suspicious osseous lesions or acute fractures. IMPRESSION: 1. Diverticulosis without evidence of acute diverticulitis. 2. No acute process identified within the abdomen or pelvis. 3. Large amount stool noted in the colon. Correlate for constipation. Electronically signed by: Krystian Solomon MD (03/10/2021 9:59 PM) [facility]
[2021-03-10 23:27] LABS: FECAL OB PT POSITIVE (NEG)
[2021-03-10 23:47] VITALS: BP 160/93
--- NOTE | 2021-03-11 00:07 | EKG ---
[facility] [address] [place] [address] Test Date: 2021-03-10 Test Time: 20:49:57 Pat Name: FLAVIO MANZANO Department: Room: Gender: F Clinical Services Professional: : 1935 Requested By: PANDA MAXWELL Order Number: [id number] Reading MD: Measurements Intervals [place] Rate: 62 P: 0 NH: 92 QRS: -61 QRSD: 170 T: 88 QT: 496 QTc: 506 Interpretive Statements SINUS RHYTHM ATRIAL PREMATURE COMPLEX(ES) ABNORMAL LEFT AXIS DEVIATION NON SPECIFIC INTRAVENTRICULAR BLOCK QRS(T) CONTOUR ABNORMALITY CONSIDER ANTEROLATERAL MYOCARDIAL DAMAGE ABNORMAL ECG RI6.01 No previous ECG available for comparison
[2021-03-11 03:00] VITALS: BP 134/90
--- NOTE | 2021-03-11 05:33 | NUR ---
RN asssisted pt to bathroom - pt had bloody BM - moderated amount of both lori blood and dark blood noted. Pt became dyspneic upon ambulating to bathroom and back - O2 placed. Pt settled back in bed- bed alarm reset
[2021-03-11 07:30] VITALS: BP 125/83
--- NOTE | 2021-03-11 10:21 | PDOC ---
Provider Note Date of Service: DATE: 03/11/21 TIME: 10:20 Provider Note H&P dictated #[id number] Justifications for Admission Other Justification JESSICA ALMARAZ MD Mar 11, 2021 10:20
[2021-03-11] MEDS: PANTOPRAZOLE IV PUSH 40 MG VIAL. IVP SCH (10:40)
[2021-03-11] MEDS: IV NORMAL SALINE 1000ML BAG 1,000 ML IV SCH ×2 (10:41→22:50)
--- NOTE | 2021-03-11 11:21 | HP ---
ADMIT DATE: 03/11/2021 ADMITTING PHYSICIAN: Dr. Robertson. HISTORY OF PRESENT ILLNESS: This is an 85-year-old female, presented to Emergency Room with complaints of rectal bleeding for the last 3 days. The patient had recently seen Dr. Robertson. Because of the persistent rectal bleeding, the patient has been admitted for further evaluation and management. The patient denies any abdominal pain, nausea, vomiting, diarrhea, or constipation. She is a poor historian. REVIEW OF SYSTEMS: Unable to do full systems' review. The patient denies any dizziness, chest pains, palpitations, dyspnea, abdominal pain, nausea, vomiting, diarrhea, fever, chills, dysuria. Other systems reviewed and are negative. She is not a good historian. 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 She has a history of diabetes, emphysema, and hypertension. PAST SURGICAL HISTORY: Permanent pacemaker placement. MEDICATIONS: Reviewed. She is on Starlix 60 mg twice daily at home. She is on Periactin, Zofran p.r.n., tramadol and trazodone at home. She may be taking Sonata, but I am not sure of her medications as she is forgetful. SOCIAL HISTORY: Smoked 1 pack per day for 30 years, recently smoking one-third pack per day. No history of alcoholism or drug abuse. FAMILY HISTORY: Positive for hypertension, diabetes and heart disease. ALLERGIES: None known any. PHYSICAL EXAMINATION: GENERAL: The patient is an elderly -[place] female who is alert, oriented, but forgetful, not in any acute distress. She is thin. VITAL SIGNS: Temperature 98.3, pulse 58 per minute, respirations 22 per minute, blood pressure 151/78 mmHg. SKIN: Warm and dry. There is no cyanosis. EYES: Pupils reacting to light. Conjunctivae pale. Sclerae muddy. HENT: Unremarkable. NECK: Supple. JVP normal. No thyromegaly. Trachea midline. LUNGS: Decreased breath sounds at bases. CARDIOVASCULAR: S1, S2 regular. ABDOMEN: Soft, nontender, no guarding, no rigidity. Bowel sounds present. EXTREMITIES: No edema, no cyanosis. CENTRAL NERVOUS SYSTEM: Generalized weakness, forgetful. LABORATORY FINDINGS: WBC count 9.7, hemoglobin 12.9. Sodium 142, potassium 4.8, BUN 16, creatinine 0.9, glucose 105, calcium 8.6, albumin 3.6, AST 37, ALT 44. INR is 1.1. Stool occult is positive. IMPRESSION: 1. Acute gastrointestinal bleeding, most likely rectal bleeding due to diverticulosis. The patient had EGD and colonoscopy done 3 years ago and it showed duodenitis and a single polyp. 2. Chronic obstructive pulmonary disease. 3. History of hypertension. 4. Diabetes mellitus type 2. 5. History of cardiac arrhythmia, status post permanent pacemaker. PLAN: Keep n.p.o., start IV fluids, monitor hemoglobin and hematocrit q.6h. Start IV Protonix. Consulted Dr. Moran for GI evaluation and management. I have discussed the case with him. He will see the patient. For details, please refer to the orders. Recheck labs in a.m. Continue IV fluids. RAMON/JUDY DR: Iris TID: [id number] CC: ADDISON ROBERTSON MD
[2021-03-11 11:26] VITALS: BP 142/80
--- NOTE | 2021-03-11 11:31 | PDOC2 ---
GI CONSULT Date of Service: DATE: 03/11/21 TIME: 11:22 Reason For Consult: Rectal bleeding HPI: HPI: 85 y/o female with 3-4 day h/o blood in stool; small amount per her. Says no clots or stool with, just blood. No pain with this. No N, V. Does have h/o diverticulosis. Colonoscopy in 2018 with the diverticula and 5mm ascending polyp (adenoma). Denies melena. Denies heartburn or dysphagia. H/o PUD. Had EGD for weight loss issues in 2018 with reflux, ulcer scar in duodenum; biopsies positive for H.pylori. Historically seems this was treated. No GB, liver, pancreatic history. Former smoker. No current alcohol. PMH: PMH: COPD, Bradycardia, HTN, cataracts. S/P ECCE, PPMI. Social History: Smoke: Quit ALCOHOL: none Drugs: None ROS: GEN: Denies fevers, chills, sweats HEENT: Denies blurred vision, sore throat CV: Denies chest pain RESP: Denies shortness of air, cough GI: Per HPI : Denies hematuria, dysuria ENDO: Denies weight changes NEURO: Denies confusion, dizziness MSK: Denies weakness, joint pain/swelling SKIN: Denies jaundice, pruritus Vitals: Vitals: Vital Signs Date Time Temp Pulse Resp B/P (MAP) Pulse Ox O2 Delivery O2 Flow Rate FiO2 03/11/21 07:30 97.9 64 16 125/83 (97) 98 Room Air 97.9 Labs: Labs: Laboratory Tests Test 03/10/21 21:01 03/10/21 23:14 White Blood Count 9.7 x10^3/uL (4.0-11.0) Red Blood Count 4.08 x10^6/uL (3.50-5.40) Hemoglobin 12.9 g/dL (12.0-15.5) Hematocrit 38.6 % (36.0-47.0) Mean Corpuscular Volume 95 fL (79-100) Mean Corpuscular Hemoglobin 32 pg (25-35) Mean Corpuscular Hemoglobin Concent 33 g/dL (31-37) Red Cell Distribution Width 14.1 % (11.5-14.5) Platelet Count 217 x10^3/uL (140-400) Neutrophils (%) (Auto) 68 % (31-73) Lymphocytes (%) (Auto) 18 % (24-48) Monocytes (%) (Auto) 12 % (0-9) Eosinophils (%) (Auto) 2 % (0-3) Basophils (%) (Auto) 1 % (0-3) Neutrophils # (Auto) 6.5 x10^3/uL (1.8-7.7) Lymphocytes # (Auto) 1.7 x10^3/uL (1.0-4.8) Monocytes # (Auto) 1.2 x10^3/uL (0.0-1.1) Eosinophils # (Auto) 0.2 x10^3/uL (0.0-0.7) Basophils # (Auto) 0.1 x10^3/uL (0.0-0.2) Prothrombin Time 13.8 SEC (11.7-14.0) Prothromb Time International Ratio 1.1 (0.8-1.1) Activated Partial Thromboplast Time 31 SEC (24-38) Sodium Level 142 mmol/L (136-145) Potassium Level 4.8 mmol/L (3.5-5.1) Chloride Level 107 mmol/L (98-107) Carbon Dioxide Level 32 mmol/L (21-32) Anion Gap 3 (6-14) Blood Urea Nitrogen 16 mg/dL (7-20) Creatinine 0.9 mg/dL (0.6-1.0) Estimated GFR (Cockcroft-Gault) 72.4 BUN/Creatinine Ratio 18 (6-20) Glucose Level 105 mg/dL (70-99) Calcium Level 8.6 mg/dL (8.5-10.1) Total Bilirubin 0.4 mg/dL (0.2-1.0) Aspartate Amino Transf (AST/SGOT) 37 U/L (15-37) Alanine Aminotransferase (ALT/SGPT) 44 U/L (14-59) Alkaline Phosphatase 87 U/L (46-116) Troponin I Quantitative 0.017 ng/mL (0.000-0.055) Total Protein 6.9 g/dL (6.4-8.2) Albumin 3.6 g/dL (3.4-5.0) Albumin/Globulin Ratio 1.1 (1.0-1.7) Stool Occult Blood Positive (NEG) Allergies: Coded Allergies: No Known Drug Allergies (Unverified , 10/07/17) Medications: Current Medications Medications (Trade) Dose Ordered Sig/Keira Route PRN Reason Start Time Stop Time Status Last Admin Dose Admin Iohexol (Omnipaque 300 Mg/ml) 75 ml 1X ONCE IV 03/10/21 21:30 03/10/21 21:31 DC 03/10/21 21:52 Sodium Chloride 1,000 ml @ 75 mls/hr [id number] IV 03/11/21 09:30 03/11/21 10:41 Pantoprazole Sodium (PROTONIX VIAL for IV PUSH) 40 mg DAILY IVP 03/11/21 11:00 03/11/21 10:40 Imaging: Imaging: On CT A/P: IMPRESSION: 1. Diverticulosis without evidence of acute diverticulitis. 2. No acute process identified within the abdomen or pelvis. 3. Large amount stool noted in the colon. Correlate for constipation. PE: GEN: NAD HEENT: Atraumatic, PERRLA LUNGS: CTAB HEART: RRR, no murmurs ABD: NABS, S/ND/NT, no masses EXTREMITY: No edema SKIN: No rashes, no jaundice NEURO/PSYCH: A & O 3 A/P: A/P: IMP: Hematochezia. Diverticular bleed vs. hemorrhoids, depending on significance of bleed. Hemoglobin currently normal. H/o PUD, H.pylori-positive; historically treated. REC: Monitor hemoglobin. If seemingly brisk bleed-->nuclear bleeding scan. If positive, CTA and IR to see. OK to have some clears po. --other pending. Thanks. MACKENZIE RALPH MD Mar 11, 2021 11:31
[2021-03-11 11:53] LABS: HEMATOCRIT 34.6 % (36.0-47.0); HEMOGLOBIN 11.6 g/dL (12.0-15.5); RED BLOOD COUNT 3.7 x10^6/uL (3.50-5.40); RED CELL DISTRIBUTION WIDTH 14.3 % (11.5-14.5); WHITE BLOOD COUNT 8.2 x10^3/uL (4.0-11.0)
[2021-03-11 15:00] VITALS: BP 135/80
[2021-03-11 19:00] VITALS: BP 135/83
[2021-03-11 23:00] VITALS: BP 150/82
[2021-03-12 01:00] LABS: HEMATOCRIT 34.7 % (36.0-47.0); HEMOGLOBIN 11.7 g/dL (12.0-15.5); RED BLOOD COUNT 3.69 x10^6/uL (3.50-5.40); RED CELL DISTRIBUTION WIDTH 14.6 % (11.5-14.5); WHITE BLOOD COUNT 8.8 x10^3/uL (4.0-11.0)
[2021-03-12 03:00] VITALS: BP 150/88
[2021-03-12 07:00] VITALS: BP 133/62
[2021-03-12 07:52] LABS: BASO % 1 % (0-3); EOS # 0.1 x10^3/uL (0.0-0.7); EOS % 2 % (0-3); HEMATOCRIT 34.2 % (36.0-47.0); HEMOGLOBIN 11.4 g/dL (12.0-15.5); LYMPH # 1.7 x10^3/uL (1.0-4.8); LYMPH % 22 % (24-48); MEAN CORPUSCULAR HEMOGLOBIN 31 pg (25-35); MEAN CORPUSCULAR HGB CONC 33 g/dL (31-37); MEAN CORPUSCULAR VOLUME 94 fL (79-100); MONO % 13 % (0-9); NEUT # 4.8 x10^3/uL (1.8-7.7); NEUT % 63 % (31-73); PLATELET COUNT 215 x10^3/uL (140-400); RED BLOOD COUNT 3.63 x10^6/uL (3.50-5.40); RED CELL DISTRIBUTION WIDTH 14.5 % (11.5-14.5); WHITE BLOOD COUNT 7.7 x10^3/uL (4.0-11.0)
[2021-03-12 08:28] LABS: ALBUMIN 3.5 g/dL (3.4-5.0); ALBUMIN/GLOBULIN RATIO 1.2 (1.0-1.7); CALCIUM 8.9 mg/dL (8.5-10.1); CREATININE 0.8 mg/dL (0.6-1.0); GFR 82.9; POTASSIUM 4.1 mmol/L (3.5-5.1); TOTAL BILIRUBIN 0.7 mg/dL (0.2-1.0); TOTAL PROTEIN 6.4 g/dL (6.4-8.2)
--- NOTE | 2021-03-12 08:35 | PDOC ---
PROGRESS NOTES Date of Service: DATE: 03/12/21 TIME: 08:32 Subjective Subjective pt feels better ,no more rectal bleeding Objective Objective Vital Signs Date Time Temp Pulse Resp B/P (MAP) Pulse Ox O2 Delivery O2 Flow Rate FiO2 03/12/21 07:00 98.1 63 18 133/62 (85) 97 Room Air 98.1 03/11/21 08:00 2.5 Intake and Output 03/12/21 07:00 Intake Total 320 ml Balance 320 ml Intake Oral 320 ml # Voids 1 Physical Exam Abdomen: Normal bowel sounds, Soft Heart: Regular rate, Normal S1, Normal S2 Extremities: No clubbing, No cyanosis General: Alert, Oriented X3 MUSCULOSKELETAL: No deformity Neuro: Normal speech Psych/Mental Status: Mental status NL Skin: No breakdown Diagnosis Problem List Problems Medical Problems: (1) Hematochezia Status: Acute Assessment Assessment Problems Medical Problems: (1) Hematochezia Status: Acute IMPRESSION: 1. Acute lower gastrointestinal bleeding, most likely rectal bleeding due to diverticulosis. The patient had EGD and colonoscopy done 3 years ago and it showed duodenitis and a single polyp. 2. Chronic obstructive pulmonary disease. 3. History of hypertension. 4. Diabetes mellitus type 2. 5. History of cardiac arrhythmia, status post permanent pacemaker. PLAN: CT scan diverticulosis. HB 11 stable. GI consult appreicated. clear liquid diet.. Keep n.p.o., start IV fluids, monitor hemoglobin and hematocrit q.6h. Start IV Protonix. Consulted Dr. Moran for GI evaluation and management. I have discussed the case with him. He will see the patient. For details, please refer to the orders. Recheck labs in a.m. Continue IV fluids. Plan Plan of Care Problems Medical Problems: (1) Hematochezia Status: Acute Comment Review of Relevant I have reviewed the following items dusty (where applicable) has been applied. Labs Laboratory Tests Test 03/11/21 11:40 03/12/21 00:45 03/12/21 06:55 White Blood Count 8.2 x10^3/uL (4.0-11.0) 8.8 x10^3/uL (4.0-11.0) 7.7 x10^3/uL (4.0-11.0) Red Blood Count 3.70 x10^6/uL (3.50-5.40) 3.69 x10^6/uL (3.50-5.40) 3.63 x10^6/uL (3.50-5.40) Hemoglobin 11.6 g/dL (12.0-15.5) 11.7 g/dL (12.0-15.5) 11.4 g/dL (12.0-15.5) Hematocrit 34.6 % (36.0-47.0) 34.7 % (36.0-47.0) 34.2 % (36.0-47.0) Mean Corpuscular Volume 94 fL (79-100) 94 fL (79-100) 94 fL (79-100) Mean Corpuscular Hemoglobin 32 pg (25-35) 32 pg (25-35) 31 pg (25-35) Mean Corpuscular Hemoglobin Concent 34 g/dL (31-37) 34 g/dL (31-37) 33 g/dL (31-37) Red Cell Distribution Width 14.3 % (11.5-14.5) 14.6 % (11.5-14.5) 14.5 % (11.5-14.5) Platelet Count 206 x10^3/uL (140-400) 209 x10^3/uL (140-400) 215 x10^3/uL (140-400) Neutrophils (%) (Auto) 63 % (31-73) Lymphocytes (%) (Auto) 22 % (24-48) Monocytes (%) (Auto) 13 % (0-9) Eosinophils (%) (Auto) 2 % (0-3) Basophils (%) (Auto) 1 % (0-3) Neutrophils # (Auto) 4.8 x10^3/uL (1.8-7.7) Lymphocytes # (Auto) 1.7 x10^3/uL (1.0-4.8) Monocytes # (Auto) 1.0 x10^3/uL (0.0-1.1) Eosinophils # (Auto) 0.1 x10^3/uL (0.0-0.7) Basophils # (Auto) 0.0 x10^3/uL (0.0-0.2) Sodium Level 147 mmol/L (136-145) Potassium Level 4.1 mmol/L (3.5-5.1) Chloride Level 111 mmol/L (98-107) Carbon Dioxide Level 30 mmol/L (21-32) Anion Gap 6 (6-14) Blood Urea Nitrogen 9 mg/dL (7-20) Creatinine 0.8 mg/dL (0.6-1.0) Estimated GFR (Cockcroft-Gault) 82.9 BUN/Creatinine Ratio 11 (6-20) Glucose Level 94 mg/dL (70-99) Calcium Level 8.9 mg/dL (8.5-10.1) Total Bilirubin 0.7 mg/dL (0.2-1.0) Aspartate Amino Transf (AST/SGOT) 38 U/L (15-37) Alanine Aminotransferase (ALT/SGPT) 41 U/L (14-59) Alkaline Phosphatase 57 U/L (46-116) Total Protein 6.4 g/dL (6.4-8.2) Albumin 3.5 g/dL (3.4-5.0) Albumin/Globulin Ratio 1.2 (1.0-1.7) Medications Current Medications Pantoprazole Sodium (PROTONIX VIAL for IV PUSH) 40 mg DAILY IVP Last administered on 03/11/21at 10:40; Start 03/11/21 at 11:00 Sodium Chloride 1,000 ml @ 75 mls/hr [id number] IV Last administered on 03/11/21at 10:41; Start 03/11/21 at 09:30 Vitals/I & O Vital Sign - Last 24 Hours 03/11/21 03/11/21 03/11/21 03/11/21 11:26 15:00 18:55 19:00 Temp 97.5 98.1 98.2 97.5 98.1 98.2 Pulse 62 58 49 Resp 18 18 20 B/P (MAP) 142/80 (100) 135/80 (98) 135/83 (100) Pulse Ox 96 98 97 O2 Delivery Room Air Room Air Room Air Room Air 03/11/21 03/12/21 03/12/21 23:00 03:00 07:00 Temp 98.0 98.0 98.1 98.0 98.0 98.1 Pulse 67 70 63 Resp 20 20 18 B/P (MAP) 150/82 (104) 150/88 (108) 133/62 (85) Pulse Ox 99 97 97 O2 Delivery Room Air Room Air Room Air Intake and Output 03/11/21 03/11/21 03/12/21 15:00 23:00 07:00 Intake Total 120 ml 200 ml Balance 120 ml 200 ml Justifications for Admission Other Justification ADDISON ROBERTSON MD Mar 12, 2021 08:35
[2021-03-12] MEDS: traMADol 50 MG TABLET PO SCH ×3 (09:06→20:53)
[2021-03-12] MEDS: CYPROHEPTADINE 4 MG TABLET. PO SCH ×2 (09:06→20:53)
[2021-03-12] MEDS: IV NORMAL SALINE 1000ML BAG 1,000 ML IV SCH (09:06)
[2021-03-12] MEDS: PANTOPRAZOLE IV PUSH 40 MG VIAL. IVP SCH (09:06)
--- NOTE | 2021-03-12 10:06 | PDOC ---
Date of Service: DATE: 03/12/21 TIME: 10:04 Subjective: Subjective: No bleeding or pain, doing okay w/ some clears. Objective: Vital Signs: Vital Signs Date Time Temp Pulse Resp B/P (MAP) Pulse Ox O2 Delivery O2 Flow Rate FiO2 03/12/21 09:06 Room Air 03/12/21 07:00 98.1 63 18 133/62 (85) 97 98.1 03/11/21 08:00 2.5 Labs: Laboratory Tests Test 03/11/21 11:40 03/12/21 00:45 03/12/21 06:55 White Blood Count 8.2 x10^3/uL 8.8 x10^3/uL 7.7 x10^3/uL Red Blood Count 3.70 x10^6/uL 3.69 x10^6/uL 3.63 x10^6/uL Hemoglobin 11.6 g/dL 11.7 g/dL 11.4 g/dL Hematocrit 34.6 % 34.7 % 34.2 % Mean Corpuscular Volume 94 fL 94 fL 94 fL Mean Corpuscular Hemoglobin 32 pg 32 pg 31 pg Mean Corpuscular Hemoglobin Concent 34 g/dL 34 g/dL 33 g/dL Red Cell Distribution Width 14.3 % 14.6 % 14.5 % Platelet Count 206 x10^3/uL 209 x10^3/uL 215 x10^3/uL Neutrophils (%) (Auto) 63 % Lymphocytes (%) (Auto) 22 % Monocytes (%) (Auto) 13 % Eosinophils (%) (Auto) 2 % Basophils (%) (Auto) 1 % Neutrophils # (Auto) 4.8 x10^3/uL Lymphocytes # (Auto) 1.7 x10^3/uL Monocytes # (Auto) 1.0 x10^3/uL Eosinophils # (Auto) 0.1 x10^3/uL Basophils # (Auto) 0.0 x10^3/uL Sodium Level 147 mmol/L Potassium Level 4.1 mmol/L Chloride Level 111 mmol/L Carbon Dioxide Level 30 mmol/L Anion Gap 6 Blood Urea Nitrogen 9 mg/dL Creatinine 0.8 mg/dL Estimated GFR (Cockcroft-Gault) 82.9 BUN/Creatinine Ratio 11 Glucose Level 94 mg/dL Calcium Level 8.9 mg/dL Total Bilirubin 0.7 mg/dL Aspartate Amino Transf (AST/SGOT) 38 U/L Alanine Aminotransferase (ALT/SGPT) 41 U/L Alkaline Phosphatase 57 U/L Total Protein 6.4 g/dL Albumin 3.5 g/dL Albumin/Globulin Ratio 1.2 PE: GEN: NAD LUNGS: CTAB HEART: RRR ABD: S/ND/NT NEURO/PSYCH: A & O x 3, ?forgetful A/P: Hematochezia - resolved? - mild drift in Hgb H/o diverticulosis and hemorrhoids -- Note plans to try full liquid diet - observe. Can have PO PPI instead of IV. Justicifation of Admission Dx: Justifications for Admission: Justification of Admission Dx: Yes SID NIELSON Mar 12, 2021 10:06
[2021-03-12 11:00] VITALS: BP 130/77
[2021-03-12 12:14] LABS: HEMATOCRIT 36.3 % (36.0-47.0); HEMOGLOBIN 12.1 g/dL (12.0-15.5); RED BLOOD COUNT 3.88 x10^6/uL (3.50-5.40); RED CELL DISTRIBUTION WIDTH 14.3 % (11.5-14.5); WHITE BLOOD COUNT 8.2 x10^3/uL (4.0-11.0)
--- NOTE | 2021-03-12 12:23 | NUR ---
SW following. Discussed with RN, pt from home alone, room air, full liquid diet. SW spoke with pt's granddaughter, Clover - pt has 11 hours of HCBS hours a week. Clover requesting a roller walker with a seat for pt use at home, does not have a preference of provider. Family also agreeable to home health - Barbara Amaya RN notified. Awaiting acceptance decision. SW reaching out to DME companies RE roller walker. Dr. Diane notified. SW will continue to follow.
[2021-03-12] MEDS: ONDANSETRON ODT 4 MG TAB.RAPDIS. PO SCH ×2 (14:19→22:03)
[2021-03-12 15:00] VITALS: BP 127/68
[2021-03-12 19:21] LABS: HEMOGLOBIN 11.2 g/dL (12.0-15.5); RED BLOOD COUNT 3.58 x10^6/uL (3.50-5.40); RED CELL DISTRIBUTION WIDTH 14.2 % (11.5-14.5); WHITE BLOOD COUNT 7.8 x10^3/uL (4.0-11.0)
[2021-03-12 19:55] VITALS: BP 97/66
[2021-03-12] MEDS ORDERED: traZODone 50 MG TABLET. PO SCH (21:00)
[2021-03-12 23:33] VITALS: BP 149/78
[2021-03-13 01:04] LABS: HEMATOCRIT 33.8 % (36.0-47.0); HEMOGLOBIN 11.1 g/dL (12.0-15.5); RED BLOOD COUNT 3.51 x10^6/uL (3.50-5.40); RED CELL DISTRIBUTION WIDTH 14.3 % (11.5-14.5); WHITE BLOOD COUNT 7.3 x10^3/uL (4.0-11.0)
[2021-03-13] MEDS: IV NORMAL SALINE 1000ML BAG 1,000 ML IV SCH (02:04)
[2021-03-13 03:39] VITALS: BP 100/51
[2021-03-13] MEDS: ONDANSETRON ODT 4 MG TAB.RAPDIS. PO SCH ×2 (05:57→12:55)
[2021-03-13 06:37] LABS: HEMATOCRIT 32.7 % (36.0-47.0); HEMOGLOBIN 10.8 g/dL (12.0-15.5); RED BLOOD COUNT 3.46 x10^6/uL (3.50-5.40); RED CELL DISTRIBUTION WIDTH 14.6 % (11.5-14.5); WHITE BLOOD COUNT 6.8 x10^3/uL (4.0-11.0)
[2021-03-13] MEDS ORDERED: PANTOPRAZOLE 40 MG TABLET.DR. PO SCH (07:30)
[2021-03-13 07:47] VITALS: BP 104/70
[2021-03-13] MEDS: traMADol 50 MG TABLET PO SCH ×2 (08:08→12:55)
[2021-03-13] MEDS: CYPROHEPTADINE 4 MG TABLET. PO SCH (08:08)
--- NOTE | 2021-03-13 09:03 | PDOC ---
PROGRESS NOTES Date of Service: DATE: 03/13/21 TIME: 09:01 Subjective Subjective no more bleeding per rectum Objective Objective Vital Signs Date Time Temp Pulse Resp B/P (MAP) Pulse Ox O2 Delivery O2 Flow Rate FiO2 03/13/21 08:08 Room Air 03/13/21 07:47 97.9 62 16 104/70 (81) 95 97.9 03/13/21 03:39 2.0 Intake and Output 03/13/21 06:59 Intake Total 620 ml Balance 620 ml Intake Oral 620 ml # Voids 2 Physical Exam Abdomen: Normal bowel sounds, Soft Heart: Regular rate, Normal S1, Normal S2 Extremities: No clubbing, No cyanosis General: Alert, Oriented X3 MUSCULOSKELETAL: No deformity Neuro: Normal speech Psych/Mental Status: Mental status NL Skin: No breakdown Diagnosis Problem List Problems Medical Problems: (1) Hematochezia Status: Acute Assessment Assessment Problems Medical Problems: (1) Hematochezia Status: Acute IMPRESSION: 1. Acute lower gastrointestinal bleeding, most likely rectal bleeding due to diverticulosis. The patient had EGD and colonoscopy done 3 years ago and it showed duodenitis and a single polyp. 2. Chronic obstructive pulmonary disease. 3. History of hypertension. 4. Diabetes mellitus type 2. 5. History of cardiac arrhythmia, status post permanent pacemaker. PLAN: Hb stable CT scan diverticulosis. GI consult appreicated. advance diet as tolerated spoke with grand daughter home later today? colon exam 3 yrs ago diverticulosis Plan Plan of Care Problems Medical Problems: (1) Hematochezia Status: Acute Comment Review of Relevant I have reviewed the following items dusty (where applicable) has been applied. Labs Laboratory Tests Test 03/12/21 11:41 03/12/21 11:55 03/12/21 12:48 03/12/21 17:24 Glucose (Fingerstick) 68 mg/dL (70-99) 123 mg/dL (70-99) 103 mg/dL (70-99) White Blood Count 8.2 x10^3/uL (4.0-11.0) Red Blood Count 3.88 x10^6/uL (3.50-5.40) Hemoglobin 12.1 g/dL (12.0-15.5) Hematocrit 36.3 % (36.0-47.0) Mean Corpuscular Volume 94 fL (79-100) Mean Corpuscular Hemoglobin 31 pg (25-35) Mean Corpuscular Hemoglobin Concent 33 g/dL (31-37) Red Cell Distribution Width 14.3 % (11.5-14.5) Platelet Count 225 x10^3/uL (140-400) Test 03/12/21 19:10 03/12/21 20:03 03/13/21 00:55 03/13/21 06:00 White Blood Count 7.8 x10^3/uL (4.0-11.0) 7.3 x10^3/uL (4.0-11.0) 6.8 x10^3/uL (4.0-11.0) Red Blood Count 3.58 x10^6/uL (3.50-5.40) 3.51 x10^6/uL (3.50-5.40) 3.46 x10^6/uL (3.50-5.40) Hemoglobin 11.2 g/dL (12.0-15.5) 11.1 g/dL (12.0-15.5) 10.8 g/dL (12.0-15.5) Hematocrit 34.0 % (36.0-47.0) 33.8 % (36.0-47.0) 32.7 % (36.0-47.0) Mean Corpuscular Volume 95 fL (79-100) 97 fL (79-100) 94 fL (79-100) Mean Corpuscular Hemoglobin 31 pg (25-35) 32 pg (25-35) 31 pg (25-35) Mean Corpuscular Hemoglobin Concent 33 g/dL (31-37) 33 g/dL (31-37) 33 g/dL (31-37) Red Cell Distribution Width 14.2 % (11.5-14.5) 14.3 % (11.5-14.5) 14.6 % (11.5-14.5) Platelet Count 234 x10^3/uL (140-400) 190 x10^3/uL (140-400) 200 x10^3/uL (140-400) Glucose (Fingerstick) 141 mg/dL (70-99) Test 03/13/21 07:05 Glucose (Fingerstick) 69 mg/dL (70-99) Medications Current Medications Ondansetron HCl (Zofran Odt) 4 mg Q8HRS PO Last administered on 03/13/21at 05:57; Start 03/12/21 at 14:00 Pantoprazole Sodium (Protonix) 40 mg DAILYAC PO Last administered on 03/13/21at 05:57; Start 03/13/21 at 07:30 Trazodone HCl (Desyrel) 50 mg HS PO Last administered on 03/12/21at 20:53; Start 03/12/21 at 21:00 Vitals/I & O Vital Sign - Last 24 Hours 03/12/21 03/12/21 03/12/21 03/12/21 09:06 11:00 14:19 15:00 Temp 98.2 97.9 98.2 97.9 Pulse 57 67 Resp 18 18 B/P (MAP) 130/77 (94) 127/68 (87) Pulse Ox 96 96 O2 Delivery Room Air Room Air Room Air Room Air 03/12/21 03/12/21 03/12/21 03/12/21 19:55 20:00 21:23 23:33 Temp 97.9 97.7 97.9 97.7 Pulse 73 68 Resp 16 18 20 B/P (MAP) 97/66 (76) 149/78 (101) Pulse Ox 95 95 98 O2 Delivery Nasal Cannula Room Air Room Air Nasal Cannula O2 Flow Rate 2.0 2.0 03/13/21 03/13/21 03/13/21 03:39 07:47 08:08 Temp 97.8 97.9 97.8 97.9 Pulse 60 62 Resp 20 16 B/P (MAP) 100/51 (67) 104/70 (81) Pulse Ox 98 95 O2 Delivery Nasal Cannula Room Air Room Air O2 Flow Rate 2.0 Intake and Output 03/12/21 03/12/21 03/13/21 14:59 22:59 06:59 Intake Total 500 ml 120 ml Balance 500 ml 120 ml Justifications for Admission Other Justification ADDISON ROBERTSON MD Mar 13, 2021 09:03
--- NOTE | 2021-03-13 10:33 | PDOC ---
Date of Service: DATE: 03/13/21 TIME: 10:30 Subjective: Subjective: Stooled w/o blood. Breakfast is cold. Objective: Objective: D/w nurse - didn't want breakfast right away and now it's cold. Possible DC today. Vital Signs: Vital Signs Date Time Temp Pulse Resp B/P (MAP) Pulse Ox O2 Delivery O2 Flow Rate FiO2 03/13/21 08:08 Room Air 03/13/21 07:47 97.9 62 16 104/70 (81) 95 97.9 03/13/21 03:39 2.0 Labs: Laboratory Tests Test 03/12/21 11:41 03/12/21 11:55 03/12/21 12:48 03/12/21 17:24 Glucose (Fingerstick) 68 mg/dL 123 mg/dL 103 mg/dL White Blood Count 8.2 x10^3/uL Red Blood Count 3.88 x10^6/uL Hemoglobin 12.1 g/dL Hematocrit 36.3 % Mean Corpuscular Volume 94 fL Mean Corpuscular Hemoglobin 31 pg Mean Corpuscular Hemoglobin Concent 33 g/dL Red Cell Distribution Width 14.3 % Platelet Count 225 x10^3/uL Test 03/12/21 19:10 03/12/21 20:03 03/13/21 00:55 03/13/21 06:00 White Blood Count 7.8 x10^3/uL 7.3 x10^3/uL 6.8 x10^3/uL Red Blood Count 3.58 x10^6/uL 3.51 x10^6/uL 3.46 x10^6/uL Hemoglobin 11.2 g/dL 11.1 g/dL 10.8 g/dL Hematocrit 34.0 % 33.8 % 32.7 % Mean Corpuscular Volume 95 fL 97 fL 94 fL Mean Corpuscular Hemoglobin 31 pg 32 pg 31 pg Mean Corpuscular Hemoglobin Concent 33 g/dL 33 g/dL 33 g/dL Red Cell Distribution Width 14.2 % 14.3 % 14.6 % Platelet Count 234 x10^3/uL 190 x10^3/uL 200 x10^3/uL Glucose (Fingerstick) 141 mg/dL Test 03/13/21 07:05 Glucose (Fingerstick) 69 mg/dL PE: GEN: NAD - sitting up on edge of bed w/ breakfast tray LUNGS: CTAB HEART: RRR ABD: NABS, S/ND/NT NEURO/PSYCH: A & O 3 A/P: Hematochezia - resolved Diverticulosis, hemorrhoids -- ADAT, DC per primary. Justicifation of Admission Dx: Justifications for Admission: Justification of Admission Dx: Yes SID NIELSON Mar 13, 2021 10:32
[2021-03-13 11:00] VITALS: BP 114/74
--- NOTE | 2021-03-13 11:28 | NUR ---
SS following up with discharge planning. SS reviewed pt chart and discussed with pt RN. Pt is currently on room air. PT recommended home with home healthcare. Pt accepted on services with [facility], ; fax [phone]. Discharge orders received and sent to [facility]. Pt's RN notified.
[2021-03-13 15:00] VITALS: BP 136/82
--- NOTE | 2021-03-13 17:45 | NUR ---
Discharge Note: FLAVIO MANZANO J6 [facility] Discharge instructions and discharge home medications reviewed with Patient/grand-daughter and a copy given. All questions have been answered and understanding verbalized. The following instructions and handouts were given: Follow up with Dr. Diane Discontinued IV line and telemetry. Patient discharged to Home with Home Health.
== END 2021-03-13 17:50 | disposition home health service (06) | DRG 379 ==
LOC: ER 18:37 → 6 SOUTH 22:57
PROVIDERS: ADMIT Internal Medicine; ATTEND Internal Medicine
DX: K57.31 Diverticulosis of large intestine without perforation or abscess with bleeding (principal); E11.9 Type 2 diabetes mellitus without complications; F17.210 Nicotine dependence, cigarettes, uncomplicated; I10 Essential (primary) hypertension; J43.9 Emphysema, unspecified; K64.9 Unspecified hemorrhoids; K21.9 Gastro-esophageal reflux disease without esophagitis; Z82.49 Family history of ischemic heart disease and other diseases of the circulatory system; Z83.3 Family history of diabetes mellitus; Z87.11 Personal history of peptic ulcer disease; Z95.0 Presence of cardiac pacemaker
CPT/HCPCS: 36415; 71045; 74177; 80053; 82274; 82962; 84484; 85025; 85027; 85610; 85730; 93005; 99283; C9113; J7030; Q9967; 97530-GP; 99285-25; G0378

== ENCOUNTER 2021-05-15 13:04 | Inpatient (IN) | payer MEDICARE ==
[~2021-05-15] VITALS: Ht 168.9 cm; Wt 54.1 kg
[2021-05-15 13:52] LABS: BASO % 0 % (0-3); EOS % 0 % (0-3); HEMATOCRIT 50.7 % (36.0-47.0); HEMOGLOBIN 16.7 g/dL (12.0-15.5); LYMPH # 0.6 x10^3/uL (1.0-4.8); LYMPH % 4 % (24-48); MEAN CORPUSCULAR HEMOGLOBIN 31 pg (25-35); MEAN CORPUSCULAR HGB CONC 33 g/dL (31-37); MEAN CORPUSCULAR VOLUME 94 fL (79-100); MONO % 7 % (0-9); NEUT # 13.1 x10^3/uL (1.8-7.7); NEUT % 89 % (31-73); PLATELET COUNT 157 x10^3/uL (140-400); RED BLOOD COUNT 5.41 x10^6/uL (3.50-5.40); RED CELL DISTRIBUTION WIDTH 14.1 % (11.5-14.5); WHITE BLOOD COUNT 14.7 x10^3/uL (4.0-11.0)
[2021-05-15 13:53] LABS: BILIRUBIN,URINE SMALL (NEG); CLARITY,URINE CLEAR; COLOR,URINE AMBER; NITRITE,URINE NEGATIVE (NEG); PH,URINE 5.5 (<5.0-8.0); PROTEIN,URINE 100 mg/dL (NEG-TRACE)
[2021-05-15 14:11] LABS: BACTERIA,URINE FEW /HPF (0-FEW)
--- NOTE | 2021-05-15 14:11 | RAD ---
EXAM: AP View of the chest DATE: 05/15/2021 1:52 PM INDICATION: Reason: hypoxia / Spl. Instructions: / History: COMPARISON: 03/10/2021 08/12/2019 FINDINGS: Cardiac generator pack obscures a portion of the left chest with leads in stable position. The heart is not enlarged. Left lung base airspace opacities likely consolidative process such as pneumonia. No pneumothorax. Trace pleural thickening left costophrenic angle. IMPRESSION: Left lung base airspace opacities likely consolidative process such as pneumonia. Electronically signed by: David Shah MD (05/15/2021 2:09 PM) [id number]
[2021-05-15 14:12] LABS: HYALINE CASTS, URINE FEW /HPF; RBC,URINE OCC /HPF (0-2); YEAST,URINE PRESENT /HPF
--- NOTE | 2021-05-15 14:12 | RAD ---
EXAM: AP, lateral and oblique views of the right knee DATE: 05/15/2021 1:50 PM INDICATION: Reason: RIGHT KNEE PAIN / Spl. Instructions: / History: COMPARISON: No Prior FINDINGS: No acute fracture or dislocation. No joint effusion. Severe lateral compartment joint space narrowin g with tricompartmental osteophytes. IMPRESSION: No acute fracture or dislocation. Severe left knee joint osteoarthritis. Electronically signed by: David Shah MD (05/15/2021 2:10 PM) [id number]
--- NOTE | 2021-05-15 14:29 | RAD ---
CT HEAD INDICATION: Confusion COMPARISON: None Available. Exposure: One or more of the following individualized dose reduction techniques were utilized for thi s examination: 1. Automated exposure control 2. Adjustment of the mA and/or kV according to patient size 3. Use of iterative reconstruction technique TECHNIQUE: 5 mm contiguous axial images were obtained from the skull base to the vertex in both bone and soft tissue algorithm. FINDINGS: Mild bilateral periventricular white matter hypodensities likely ischemic disease. No evidence of acute intracranial hemorrhage. No extra-axial fluid collections. No mass effect or midline shift. Ventricular size is appropriate. Basal cisterns are patent. No fractures identified.Lay-white differentiation is preserved.Globes and orbits are within normal l imits. Paranasal sinuses and mastoid air cells are clear. IMPRESSION: No acute intracranial findings. Electronically signed by: Josef Brody MD (05/15/2021 2:26 PM) [id number]
[2021-05-15 14:39] LABS: % BANDS 16 % (0-9); % LYMPHS 2 % (24-48); % MONOS 6 % (0-10); % SEGS 76 % (35-66)
[2021-05-15 14:40] LABS: PLT ESTIMATE ADEQUATE (ADEQUATE)
[2021-05-15 14:47] LABS: BASE EXCESS ABG 3 mmol/L (-3-3); HCO3 ABG 26 mmol/L (21-28); PCO2 ABG 37 mmHg (35-46); PO2 ABG 62 mmHg (65-108); SAT O2 ABG 92 % (92-99)
[2021-05-15 14:49] LABS: FIO2 ABG 36
--- NOTE | 2021-05-15 15:01 | PHYS DOC ---
Past Medical History Past Medical History: COPD, Dementia, Diabetes-Type II, Hypertension Past Surgical History: Pacemaker Additional Past Surgical Histo: pacer Smoking Status: Former Smoker Alcohol Use: None Drug Use: None General Adult EDM: Chief Complaint: WEAKNESS/GENERALIZED HPI: HPI: 85-year-old female with a history of dementia presents to the emergency department with generalized weakness. She is confused and is unable to recall many details of her history. Her family reports that she usually gets UTIs and she gets confused like this. She complains of right knee pain but is unable to say whether is from trauma or injury. The patient denies fever, chills, chest pain, shortness of breath, abdominal pain, urinary symptoms, cough, recent trauma, or any other complaints. Review of Systems: Review of Systems: Further ROS is difficult to obtain secondary to patient's confusion. Heart Score: C/O Chest Pain: No Allergies: Allergies: Allergies Coded Allergies Type Severity Reaction Last Updated Verified No Known Drug Allergies 10/07/17 No Physical Exam: PE: Constitutional: No acute distress, non-toxic appearance. HENT: Atraumatic, bilateral external ears normal, nose normal. Eyes: PERRLA, EOMI, conjunctiva normal, no discharge. Neck: Normal range of motion, supple, no stridor. Cardiovascular: Heart rate regular rhythm. 2+ radial pulses Lungs & Thorax: No respiratory distress, symmetrical expansion. Bilateral breath sounds clear to auscultation Abdomen: Soft, no tenderness Skin: Warm, dry. Extremities: No tenderness, no cyanosis, ROM intact, no edema. No right knee tenderness, range of motion intact Neurologic: Alert and oriented X 3, normal motor function, normal sensory function, no focal deficits noted. Non ataxic gait. GCS 15. Psychologic: Affect normal, judgment normal, mood normal. Current Patient Data: Labs: Laboratory Tests Test 05/15/21 13:15 05/15/21 13:33 05/15/21 14:30 White Blood Count 14.7 x10^3/uL (4.0-11.0) H Red Blood Count 5.41 x10^6/uL (3.50-5.40) H Hemoglobin 16.7 g/dL (12.0-15.5) H Hematocrit 50.7 % (36.0-47.0) H Mean Corpuscular Volume 94 fL (79-100) Mean Corpuscular Hemoglobin 31 pg (25-35) Mean Corpuscular Hemoglobin Concent 33 g/dL (31-37) Red Cell Distribution Width 14.1 % (11.5-14.5) Platelet Count 157 x10^3/uL (140-400) Neutrophils (%) (Auto) 89 % (31-73) H Lymphocytes (%) (Auto) 4 % (24-48) L Monocytes (%) (Auto) 7 % (0-9) Eosinophils (%) (Auto) 0 % (0-3) Basophils (%) (Auto) 0 % (0-3) Neutrophils # (Auto) 13.1 x10^3/uL (1.8-7.7) H Lymphocytes # (Auto) 0.6 x10^3/uL (1.0-4.8) L Monocytes # (Auto) 1.0 x10^3/uL (0.0-1.1) Eosinophils # (Auto) 0.0 x10^3/uL (0.0-0.7) Basophils # (Auto) 0.0 x10^3/uL (0.0-0.2) Segmented Neutrophils % 76 % (35-66) H Band Neutrophils % 16 % (0-9) H Lymphocytes % 2 % (24-48) L Monocytes % 6 % (0-10) Platelet Estimate Adequate (ADEQUATE) Large Platelets Few Urine Collection Type U cath Urine Color Kathleen Urine Clarity Clear Urine pH 5.5 (<5.0-8.0) Urine Specific [place] 1.025 (1.000-1.030) Urine Protein 100 mg/dL (NEG-TRACE) Urine Glucose (UA) Negative mg/dL (NEG) Urine Ketones (Stick) Negative mg/dL (NEG) Urine Blood Moderate (NEG) Urine Nitrite Negative (NEG) Urine Bilirubin Small (NEG) Urine Urobilinogen Dipstick 1.0 mg/dL (0.2 mg/dL) Urine Leukocyte Esterase Negative (NEG) Urine RBC Occ /HPF (0-2) Urine WBC 1-4 /HPF (0-4) Urine Squamous Epithelial Cells Mod /LPF Urine Bacteria Few /HPF (0-FEW) Urine Hyaline Casts Few /HPF Urine Mucus Marked /LPF Urine Yeast Present /HPF O2 Saturation 92 % (92-99) Arterial Blood pH 7.47 (7.35-7.45) H Arterial Blood pCO2 at Patient Temp 37 mmHg (35-46) Arterial Blood pO2 at Patient Temp 62 mmHg (65-108) L Arterial Blood HCO3 26 mmol/L (21-28) Arterial Blood Base Excess 3 mmol/L (-3-3) FiO2 36 Laboratory Tests 05/15/21 13:15 Vital Signs: Vital Signs Date Time Temp Pulse Resp B/P (MAP) Pulse Ox O2 Delivery O2 Flow Rate FiO2 05/15/21 14:33 Nasal Cannula 4.0 05/15/21 13:08 97.2 73 24 136/92 (100) 87 97.2 EKG: EKG: Sinus rhythm rate of 35, nonspecific anterior ventricular block, [no ectopic beats], rightward axis, QTC 519. Impression: Abnormal EKG; when compared to previous EKG on 03/10/2021, there is no acute change in intraventricular delay/block is seen on this EKG. Interpreted by meJonathan D.O. Radiology/Procedures: Radiology/Procedures: CT HEAD INDICATION: Confusion COMPARISON: None Available. Exposure: One or more of the following individualized dose reduction techniques were utilized for this examination: 1. Automated exposure control 2. Adjustment of the mA and/or kV according to patient size 3. Use of iterative re construction technique TECHNIQUE: 5 mm contiguous axial images were obtained from the skull base to the vertex in both bone and soft tissue algorithm. FINDINGS: Mild bilateral periventricular white matter hypodensities likely ischemic disease. No evidence of acute intracranial hemorrhage. No extra-axial fluid collections. No mass effect or midline shift. Ventricular size is appropriate. Basal cisterns are patent. No fractures identified.Lay-white differentiation is preserved.Globes and orbits are within normal limits. Paranasal sinuses and mastoid air cells are clear. IMPRESSION: No acute intracranial findings. Electronically signed by: Josef Brody MD (05/15/2021 2:26 PM) PROCEDURE: KNEE RIGHT 3V EXAM: AP, lateral and oblique views of the right knee DATE: 05/15/2021 1:50 PM INDICATION: Reason: RIGHT KNEE PAIN / Spl. Instructions: / History: COMPARISON: No Prior FINDINGS: No acute fracture or dislocation. No joint effusion. Severe lateral compartment joint space narrowing with tricompartmental osteophytes. IMPRESSION: No acute fracture or dislocation. Severe left knee joint osteoarthritis. Electronically signed by: David Shah MD (05/15/2021 2:10 PM) PROCEDURE: CHEST AP ONLY EXAM: AP View of the chest DATE: 05/15/2021 1:52 PM INDICATION: Reason: hypoxia / Spl. Instructions: / History: COMPARISON: 03/10/2021 08/12/2019 FINDINGS: Cardiac generator pack obscures a portion of the left chest with leads in stable position. The heart is not enlarged. Left lung base airspace opacities likely consolidative process such as pneumonia. No pneumothorax. Trace pleural thickening left costophrenic angle. IMPRESSION: Left lung base airspace opacities likely consolidative process such as pneumonia. Electronically signed by: David Shah MD (05/15/2021 2:09 PM) Course & Med Decision Making: Course & Med Decision Making Patient appears to have evidence for both pneumonia and Covid disease on her work-up today. She has a new supplemental oxygen requirement of 4 to 5 L. Her ABG as above, inappropriate for the amount of oxygen she is currently on. She is otherwise hemodynamically stable and will be admitted to her primary care physician Dr. Robertson My Orders - JONATHAN GARCIA DO Procedure Category Date Status Time Cbc W Autodiff LAB 05/15/21 Complete 13:42 Abg Only LAB 05/15/21 Complete 13:42 Arterial Puncture RT 05/15/21 Complete Withdraw Bld Ua, Cult If Indicated LAB 05/15/21 Complete 13:42 Sars Cov2 ([place]) LAB 05/15/21 In Process 13:42 Sars Antigen Marleny Rapid LAB 05/15/21 Complete 13:42 Chest Ap Only RAD 05/15/21 Resulted 13:42 Knee Right 3v RAD 05/15/21 Resulted 13:42 Ct Head Wo Contrast CT 05/15/21 Resulted 13:42 Manual Differential LAB 05/15/21 Complete 13:15 Basic Metabolic Panel LAB 05/15/21 Logged 13:56 Ceftriaxone Iv Push PHA 05/15/21 Complete (Rocephin) 15:15 Azithrmycn 500mg Ivpb PHA 05/15/21 In Process For Omni (Zithroma 15:15 Enoxaparin Per Rx PHA 05/15/21 In Process Prophylaxis (Lovenox P 15:30 Consult Physician By CONS 05/15/21 Transmitted Name 15:24 [place] Order ADT 05/15/21 Transmitted 15:24 Code Status CODE 05/15/21 Transmitted 15:24 Vital Signs, Per Unit MARCO 05/15/21 In Process Protocol 15:24 Oxygen MARCO 05/15/21 In Process 15:24 Regular DIET 05/15/21 Transmitted Dinner Bedrest With Bathroom MARCO 05/15/21 In Process Privileg 15:24 Cbc W Autodiff LAB 05/16/21 Verified 06:00 Basic Metabolic Panel LAB 05/16/21 Verified 06:00 Ondansetron Pf PHA 05/15/21 In Process (Zofran) 15:30 Acetaminophen PHA 05/15/21 In Process (Tylenol) 15:30 12 Lead Ekg EKG 05/15/21 Logged 15:29 Enoxaparin 40mg PHA 05/15/21 In Process Syringe (Lovenox 40mg 16:00 Troponini LAB 05/15/21 Logged 15:53 Nt-Pro Bnp LAB 05/15/21 Logged 15:53 Departure Departure Impression: Primary Impression: Pneumonia Additional Impression: COVID-19 Disposition: 09 ADMITTED INPATIENT Admitting Physician: Rosa Robertson Condition: STABLE Referrals: ROSA ROBERTSON MD (PCP) JONATHAN GARCIA DO May 15, 2021 15:01
[2021-05-15] MEDS ORDERED: AZITHRMYCN 500MG IVPB FOR OMNI 250 ML IV ONE (15:15)
[2021-05-15] MEDS ORDERED: cefTRIAXone IV Push 1 GM VIAL. IVP ONE (15:15)
[2021-05-15] MEDS ORDERED: ACETAMINOPHEN 325 MG TABLET. PO PRN (15:30)
[2021-05-15] MEDS ORDERED: ONDANSETRON PF 4 MG/2 ML VIAL. IVP PRN (15:30)
[2021-05-15] MEDS: ENOXAPARIN 40 MG/0.4 ML SYRINGE. SQ SCH (15:56)
[2021-05-15 16:34] LABS: CALCIUM 9.4 mg/dL (8.5-10.1); CREATININE 0.9 mg/dL (0.6-1.0); GFR 72.4
[2021-05-15] MEDS ORDERED: IV NORMAL SALINE 1000ML BAG 1,000 ML IV SCH (22:15)
[2021-05-15] MEDS ORDERED: DEXTROSE 50% 25 GM / 50ML DISP.SYRIN. IV PRN (22:15)
[2021-05-15] MEDS ORDERED: ZOLPIDEM 5 MG TABLET. PO PRN (22:45)
[2021-05-15] MEDS ORDERED: REMDESIVIR LOAD in IV NORMAL SALINE 250ML TV IV ONE (23:00)
[2021-05-15] MEDS: traZODone 50 MG TABLET. PO SCH (23:07)
[2021-05-15] MEDS: DEXAMETHASONE SOD PHOS 4 MG/ML VIAL IVP SCH (23:07)
[2021-05-16 03:00] VITALS: BP 143/89
[2021-05-16] MEDS: IV 1/2 NORMAL SALINE 1,000 ML IV SCH ×2 (05:58→19:18)
[2021-05-16 07:00] VITALS: BP 125/76
[2021-05-16] MEDS: INSULIN LISPRO 300 UNITS/3 ML VIAL. SQ SCH ×3 (08:00→17:00)
--- NOTE | 2021-05-16 08:56 | CONS ---
DATE OF CONSULTATION: 05/16/2021 PULMONARY CONSULTATION ATTENDING PHYSICIAN: Rosa Diane MD REASON FOR CONSULTATION: COVID-19 pneumonia. HISTORY OF PRESENT ILLNESS: The patient is an 85-year-old female who has history of underlying dementia. She has COPD and hypertension. She was brought into the Emergency Room with generalized weakness. She has history of UTIs as well. The patient is confused. She is not in any respiratory distress. I am unable to obtain any history from the patient. She is tested positive for COVID. Chest x-ray reveals a very faint interstitial infiltrate at the left base. PAST MEDICAL HISTORY: Significant for COPD, dementia, type 2 diabetes and hypertension. PAST SURGICAL HISTORY: History of pacemaker. SOCIAL HISTORY: Former smoker. ALLERGIES: None. MEDICATIONS: Reviewed including remdesivir, Rocephin, azithromycin and dexamethasone. REVIEW OF SYSTEMS: Unable to obtain from the patient. PHYSICAL EXAMINATION: Vital signs were reviewed. Pulse ox 100% on 4 liters. She is afebrile, blood pressure on the high side diastolic of 89. Visual exam done due to COVID-19. No paradoxical breathing. No skin rash. No leg edema. LABORATORY DATA: Reviewed. Sodium 147, potassium 4.4, BUN 35, creatinine 0.9. ABGs with a pO2 of 62 on 36% FIO2. White cell count 14.7. IMPRESSION: 1. Acute hypoxic respiratory failure secondary to COVID-19 viral pneumonia. Cannot exclude any superimposed bacterial pneumonia. 2. COVID-19 positive. 3. Abnormal chest x-ray with faint interstitial infiltrate, left base. 4. Leukocytosis. 5. Prerenal azotemia. 6. Mildly increased troponin level. RECOMMENDATIONS: 1. Discussed with RN. Continue present oxygen. Her respiratory status overall stable on 3-4 liters. 2. Continue empiric antibiotic. 3. Finish the course of remdesivir, 4. Continue dexamethasone. 5. Lovenox for DVT prophylaxis. 6. We will be available for any further recommendations. Please inform us if the oxygen requirement changes. WENDY KYLE: Jassi TID: [id number]
--- NOTE | 2021-05-16 09:21 | PDOC ---
Provider Note Date of Service: DATE: 05/16/21 TIME: 09:21 Provider Note Pt seen .H&P dictated.#[id number]. Justifications for Admission Other Justification ADDISON ROBERTSON MD May 16, 2021 09:21
[2021-05-16 09:26] LABS: BASO % 0 % (0-3); EOS % 0 % (0-3); HEMATOCRIT 47.1 % (36.0-47.0); HEMOGLOBIN 15.7 g/dL (12.0-15.5); LYMPH # 0.4 x10^3/uL (1.0-4.8); LYMPH % 3 % (24-48); MEAN CORPUSCULAR HEMOGLOBIN 31 pg (25-35); MEAN CORPUSCULAR HGB CONC 33 g/dL (31-37); MEAN CORPUSCULAR VOLUME 94 fL (79-100); MONO # 1.1 x10^3/uL (0.0-1.1); MONO % 9 % (0-9); NEUT # 10.6 x10^3/uL (1.8-7.7); NEUT % 88 % (31-73); PLATELET COUNT 145 x10^3/uL (140-400); RED BLOOD COUNT 5.03 x10^6/uL (3.50-5.40); RED CELL DISTRIBUTION WIDTH 14.1 % (11.5-14.5); WHITE BLOOD COUNT 12.1 x10^3/uL (4.0-11.0)
[2021-05-16 09:36] LABS: CREATININE 0.8 mg/dL (0.6-1.0); GFR 82.9; POTASSIUM 3.5 mmol/L (3.5-5.1)
[2021-05-16] MEDS: ASCORBIC ACID 1,000 MG TABLET PO SCH (10:07)
[2021-05-16] MEDS: CHOLECALCIFEROL (VITAMIN D3) 5,000 UNIT CAPSULE PO SCH (10:07)
[2021-05-16] MEDS: AZITHROMYCIN 250 MG TABLET. PO SCH (10:07)
[2021-05-16] MEDS: DEXAMETHASONE SOD PHOS 4 MG/ML VIAL IVP SCH (10:08)
[2021-05-16] MEDS: ZINC SULFATE 220 MG CAPSULE. PO SCH (10:08)
[2021-05-16] MEDS: traMADol 50 MG TABLET PO SCH ×3 (10:12→22:17)
--- NOTE | 2021-05-16 10:15 | NUR ---
Patient does not tolerate any exertion. O2 sats dipped into 70's this am on 4L with moving in bed, coughing, conversation. O2 currently at 6L, sats to upper 80's with minimal exertion, then back to 90-91% at rest. Reinforcing bedrest with patient at this time.
--- NOTE | 2021-05-16 10:32 | HP ---
ADMIT DATE: 05/16/2021 REASON FOR ADMISSION TO THE HOSPITAL : COVID pneumonia, hypoxia and respiratory failure. HISTORY OF PRESENT ILLNESS: The patient is an 85-year-old female. The patient has a history of COPD, chronic smoker, hypertension and a history of pacemaker. She also has diabetes, hypertension and she has been weak. She did not get her vaccination. She had cough, fever and brought into the hospital and a chest x-ray shows infiltrate, was hypoxic at 86%. The patient was started on remdesivir and also dexamethasone. Also, her white count was high at 17,000, started on broad-spectrum antibiotics after cultures were done. Pulmonary was consulted. PAST MEDICAL HISTORY: COPD, dementia, diabetes, hypertension, sick sinus syndrome. SURGICAL HISTORY: Pacemaker. SOCIAL HISTORY: Continues to smoke. ALLERGIES: No known allergies. MEDICATIONS: The patient was started on Rocephin, Zithromax, dexamethasone here and at home patient is on cyproheptadine, 4 mg Zofran for nausea, nateglinide 60 mg twice a day for diabetes, tramadol 3 times a day 50 mg for pain, trazodone 50 mg for sleep. REVIEW OF SYSTEMS: Feels weak, short of breath, fever. Rest of the 14 systems reviewed and negative. PHYSICAL EXAMINATION: GENERAL: The patient is an elderly female, sleepy. VITAL SIGNS: Temperature 97, pulse 73, respirations 20, blood pressure 130/92, 87 on room air and on 4 liters 93. HEENT: Head is atraumatic. Pupils equal. Oral cavity, no teeth. NECK: Supple. Thyroid not enlarged. CHEST: Symmetrical. Pacemaker in the left side of the chest. CARDIOVASCULAR: S1, S2. LUNGS: Diminished breath sounds, few crackles. ABDOMEN: Soft, bowel sounds present. No mass palpable. EXTERNAL GENITALIA: No Zimmer. RECTUM: Deferred. EXTREMITIES: No calf tenderness, no edema. NEUROLOGIC: The patient is sleepy, hard to assess. LABORATORY DATA: Laboratory data shows COVID test was positive, rapid test. White count 15, hemoglobin 16, platelets 157. Electrolytes show sodium 147, potassium 4.0, chloride 106, bicarbonate 28, BUN 35, creatinine 0.9, glucose 130. Troponin 0.098. BNP 2996. Urine negative. Blood gas shows pH of 7.47, pCO2 of 37, pO2 of 63, bicarbonate 26. FiO2 of 36, 93% saturation and a CT head shows no acute abnormality. Chest x-ray, bilateral infiltrates. She has DJD in the knee. FINAL IMPRESSION: 1. COVID pneumonia. 2. Hypoxia with respiratory failure. 3. Diabetes. 4. History of pacemaker for sick sinus syndrome. 5. Dementia. 6. Smoking history. PLAN: At this time, the patient is admitted to the hospital and started on remdesivir, dexamethasone and Lovenox for DVT prophylaxis and also broad spectrum antibiotics, Zithromax, Rocephin and pulmonary consult and see if she improves. KITA/BILL DR: KITA/birdie TID: [id number]
[2021-05-16 11:00] VITALS: BP 141/95
--- NOTE | 2021-05-16 12:17 | PDOC2 ---
ISA CHOPRA NEWSP[employer]ER CLIPPER 05/16/21 1217: CARDIAC CONSULT DATE OF CONSULT Date of Consult DATE: 05/16/21 TIME: 12:05 REASON FOR CONSULT Reason for Consult: Elevated troponin REFERRING PHYSICIAN Referring Physician: Dr. Abraham SOURCE Source: Chart review HISTORY OF PRESENT ILLNESS HISTORY OF PRESENT ILLNESS This is an 85 yo female who presented secondary to generalized weakness and confusion. Troponin noted to be mildly elevated, which prompted this consult. Was note to be COVID +. She denies any chest pain, shortness of breath, dizziness, diaphoresis. Is unable to tell me what brought her here to the ED. PAST MEDICAL HISTORY Cardiovascular: CHF, HTN, Other (SSS) Pulmonary: COPD CENTRAL NERVOUS SYSTEM: Dementia, Periperal neuropathy GI: GERD Musculoskeletal: Osteoarthritis Endocrine: Diabetes PAST SURGICAL HISTORY Past Surgical History: Pacemaker, Cholecystectomy, Cataract Removal FAMILY HISTORY Family History: Hypertension SOCIAL HISTORY Smoke: <1 pack per day ALCOHOL: none Drugs: None Lives: with Family CURRENT MEDICATIONS CURRENT MEDICATIONS Current Medications Medications (Trade) Dose Ordered Sig/Keira Route PRN Reason Start Time Stop Time Status Last Admin Dose Admin Ceftriaxone Sodium (Rocephin) 2 gm 1X ONCE IVP 05/15/21 15:15 05/15/21 15:16 DC 05/15/21 15:56 Azithromycin 250 ml @ 250 mls/hr 1X ONCE IV 05/15/21 15:15 05/15/21 16:14 DC 05/15/21 15:57 Enoxaparin Sodium (Lovenox 40mg Syringe) 40 mg Q24H SQ 05/15/21 16:00 05/15/21 15:56 Dexamethasone Sodium Phosphate (Decadron) 6 mg DAILY IVP 05/15/21 22:30 05/16/21 10:08 Remdesivir 200 mg/ Sodium Chloride 210 ml @ 210 mls/hr 1X ONCE IV 05/15/21 23:00 05/15/21 23:59 DC 05/15/21 23:09 Azithromycin (Zithromax) 250 mg DAILY PO 05/16/21 09:00 05/16/21 10:07 Zinc Sulfate (Orazinc) 220 mg DAILY PO 05/16/21 09:00 05/16/21 10:08 Vitamin D (Vitamin D3) 5,000 unit DAILY PO 05/16/21 09:00 05/16/21 10:07 Ascorbic Acid (Vitamin C) 1,000 mg DAILY PO 05/16/21 09:00 05/16/21 10:07 Sodium Chloride 1,000 ml @ 75 mls/hr [id number] IV 05/15/21 22:15 05/16/21 05:50 DC 05/15/21 23:08 Tramadol HCl (Ultram) 50 mg TID PO 05/16/21 09:00 05/16/21 10:12 Trazodone HCl (Desyrel) 50 mg HS PO 05/15/21 23:00 05/15/21 23:07 Zolpidem Tartrate (Ambien) 5 mg PRN QHS PRN PO INSOMNIA, MAY REPEAT X1 05/15/21 22:45 05/15/21 23:07 Sodium Chloride 1,000 ml @ 75 mls/hr [id number] IV 05/16/21 06:00 05/16/21 05:58 ALLERGIES ALLERGIES: Coded Allergies: No Known Drug Allergies (Unverified , 10/07/17) ROS Review of System 14 point ROS conducted with pertinent positives noted above in HPI, although limited due to confusion PHYSICAL EXAM General: Alert, Oriented X3 (person and place), Cooperative, No acute distress HEENT: Atraumatic Lungs: Other (on NC) Heart: Regular rate Abdomen: Soft, No tenderness Extremities: No edema Skin: No significant lesion Neuro: Normal speech, Sensation intact Psych/Mental Status: Mood NL MUSCULOSKELETAL: Osteoarthritic changes both hands VITALS/I&O VITALS/I&O: Vital Signs Date Time Temp Pulse Resp B/P (MAP) Pulse Ox O2 Delivery O2 Flow Rate FiO2 05/16/21 11:00 96.8 76 16 141/95 (110) 96 Nasal Cannula 4.0 96.8 I & O 0 05/15/21 05/15/21 05/16/21 15:00 23:00 07:00 Intake Total 0 ml Balance 0 ml LABS Lab: Laboratory Tests Test 05/15/21 13:15 05/15/21 13:33 05/15/21 14:20 05/15/21 14:30 White Blood Count 14.7 x10^3/uL (4.0-11.0) H Red Blood Count 5.41 x10^6/uL (3.50-5.40) H Hemoglobin 16.7 g/dL (12.0-15.5) H Hematocrit 50.7 % (36.0-47.0) H Mean Corpuscular Volume 94 fL (79-100) Mean Corpuscular Hemoglobin 31 pg (25-35) Mean Corpuscular Hemoglobin Concent 33 g/dL (31-37) Red Cell Distribution Width 14.1 % (11.5-14.5) Platelet Count 157 x10^3/uL (140-400) Neutrophils (%) (Auto) 89 % (31-73) H Lymphocytes (%) (Auto) 4 % (24-48) L Monocytes (%) (Auto) 7 % (0-9) Eosinophils (%) (Auto) 0 % (0-3) Basophils (%) (Auto) 0 % (0-3) Neutrophils # (Auto) 13.1 x10^3/uL (1.8-7.7) H Lymphocytes # (Auto) 0.6 x10^3/uL (1.0-4.8) L Monocytes # (Auto) 1.0 x10^3/uL (0.0-1.1) Eosinophils # (Auto) 0.0 x10^3/uL (0.0-0.7) Basophils # (Auto) 0.0 x10^3/uL (0.0-0.2) Segmented Neutrophils % 76 % (35-66) H Band Neutrophils % 16 % (0-9) H Lymphocytes % 2 % (24-48) L Monocytes % 6 % (0-10) Platelet Estimate Adequate (ADEQUATE) Large Platelets Few Urine Collection Type U cath Urine Color Kathleen Urine Clarity Clear Urine pH 5.5 (<5.0-8.0) Urine Specific [place] 1.025 (1.000-1.030) Urine Protein 100 mg/dL (NEG-TRACE) Urine Glucose (UA) Negative mg/dL (NEG) Urine Ketones (Stick) Negative mg/dL (NEG) Urine Blood Moderate (NEG) Urine Nitrite Negative (NEG) Urine Bilirubin Small (NEG) Urine Urobilinogen Dipstick 1.0 mg/dL (0.2 mg/dL) Urine Leukocyte Esterase Negative (NEG) Urine RBC Occ /HPF (0-2) Urine WBC 1-4 /HPF (0-4) Urine Squamous Epithelial Cells Mod /LPF Urine Bacteria Few /HPF (0-FEW) Urine Hyaline Casts Few /HPF Urine Mucus Marked /LPF Urine Yeast Present /HPF SARS-CoV-2 Antigen (Rapid) Positive (NEGATIVE) *A O2 Saturation 92 % (92-99) Arterial Blood pH 7.47 (7.35-7.45) H Arterial Blood pCO2 at Patient Temp 37 mmHg (35-46) Arterial Blood pO2 at Patient Temp 62 mmHg (65-108) L Arterial Blood HCO3 26 mmol/L (21-28) Arterial Blood Base Excess 3 mmol/L (-3-3) FiO2 36 Test 05/15/21 16:15 05/16/21 08:12 05/16/21 08:20 Sodium Level 147 mmol/L (136-145) H 149 mmol/L (136-145) H Potassium Level 4.0 mmol/L (3.5-5.1) 3.5 mmol/L (3.5-5.1) Chloride Level 106 mmol/L (98-107) 109 mmol/L (98-107) H Carbon Dioxide Level 28 mmol/L (21-32) 28 mmol/L (21-32) Anion Gap 13 (6-14) 12 (6-14) Blood Urea Nitrogen 35 mg/dL (7-20) H 37 mg/dL (7-20) H Creatinine 0.9 mg/dL (0.6-1.0) 0.8 mg/dL (0.6-1.0) Estimated GFR (Cockcroft-Gault) 72.4 82.9 Glucose Level 130 mg/dL (70-99) H 155 mg/dL (70-99) H Calcium Level 9.4 mg/dL (8.5-10.1) 9.0 mg/dL (8.5-10.1) Troponin I Quantitative 0.098 ng/mL (0.000-0.055) 0.101 ng/mL (0.000-0.055) QY-Uin-P-Type Natriuretic Peptide 2996 pg/mL (0-449) H Glucose (Fingerstick) 151 mg/dL (70-99) H White Blood Count 12.1 x10^3/uL (4.0-11.0) H Red Blood Count 5.03 x10^6/uL (3.50-5.40) Hemoglobin 15.7 g/dL (12.0-15.5) H Hematocrit 47.1 % (36.0-47.0) H Mean Corpuscular Volume 94 fL (79-100) Mean Corpuscular Hemoglobin 31 pg (25-35) Mean Corpuscular Hemoglobin Concent 33 g/dL (31-37) Red Cell Distribution Width 14.1 % (11.5-14.5) Platelet Count 145 x10^3/uL (140-400) Neutrophils (%) (Auto) 88 % (31-73) H Lymphocytes (%) (Auto) 3 % (24-48) L Monocytes (%) (Auto) 9 % (0-9) Eosinophils (%) (Auto) 0 % (0-3) Basophils (%) (Auto) 0 % (0-3) Neutrophils # (Auto) 10.6 x10^3/uL (1.8-7.7) H Lymphocytes # (Auto) 0.4 x10^3/uL (1.0-4.8) L Monocytes # (Auto) 1.1 x10^3/uL (0.0-1.1) Eosinophils # (Auto) 0.0 x10^3/uL (0.0-0.7) Basophils # (Auto) 0.0 x10^3/uL (0.0-0.2) Laboratory Tests 05/15/21 13:15 05/16/21 08:20 Laboratory Tests 05/15/21 16:15 05/16/21 08:20 ECHOCARDIOGRAM ECHOCARDIOGRAM <Conclusion> The left ventricle is upper limits of normal in size. The ejection fraction is moderately impaired. Ejection fraction is 30-35%. There is global hypokinesis of the left ventricle. There is borderline concentric left ventricular hypertrophy. Doppler and Color Flow revealed no significant aortic regurgitation. There is no significant aortic valvular stenosis. Doppler and Color-flow revealed moderate mitral regurgitation. Doppler and Color Flow revealed mild tricuspid regurgitation. DATE: 09/15/20 [id number] 0 ASSESSMENT/PLAN ASSESSMENT/PLAN 1. COVID PNA 2. Encephalopathy with underlying dementia; CT head without acute findings 3. Leukocytosis 4. Mild troponin elevation; highest 0.1. Most probably type II, demand ischemia. CP free. 5. Chronic systolic CHF, cardiomyopathy; Echo with LVEF 30-35% 6. SSS s/p PPM ([place]). device check last month with normal function, stable lead impedances, and adequate battery life. No AFIB 7. Hypertension; controlled 8. Diabetes, II 9. COPD with long-standing h/o tobaccoism Recommendations ASA therapy Trend troponin Ongoing lung optimization, treatment of COVID PNA Outpatient echo to re-assess LV systolic function when recovered from COVID Consider outpatient ischemic evaluation Supportive care MOLLY CANALES MD 05/16/21 1642: CARDIAC CONSULT ASSESSMENT/PLAN ASSESSMENT/PLAN Patient seen and evaluated. I agree with our nurse practitioners assessment and plan. COVID PNA. Continuing present treatment. Encephalopathy with underlying dementia; CT head without acute changes. Mild troponin elevation; highest 0.1. Most probably type II, demand ischemia. CP free. ASA Chronic systolic CHF, cardiomyopathy; Echo with LVEF 30-35% SSS s/p PPM ([place]). device check last month with normal function, stable lead impedances, and adequate battery life. No AFIB Hypertension; controlled Diabetes, II COPD with long-standing h/o tobaccoism ISA CHOPRA APRN May 16, 2021 12:17 MOLLY CANALES MD May 16, 2021 16:42
[2021-05-16] MEDS: cefTRIAXone IV Push 1 GM VIAL. IVP SCH (13:00)
--- NOTE | 2021-05-16 14:14 | NUR ---
SW following. Discussed with RN, pt from home alone - family active with pt, 6L (does not use oxygen at home), regular diet. COVID-19 positive. Pulmonology and Cardiology following. PT/OT to be ordered. SW will continue to follow.
[2021-05-16] MEDS: REPAGLINIDE 0.5 MG TABLET PO SCH ×2 (14:33→19:17)
[2021-05-16] MEDS: ASPIRIN ENTERIC COATED 81 MG TABLET.DR. PO SCH (14:34)
[2021-05-16 15:22] VITALS: BP 128/81
--- NOTE | 2021-05-16 16:00 | NUR ---
Patient appears much more comfortable this pm. Tolerating taking po, small amounts at a time. No sob noted at this time. Pt had been maintaining O2 sat at 95% at rest on 5.5L/nc, turned down to 4.5L. Patient watching tv, able to speak short sentences with nurse without desatting below 9O%. Appears to be in better spirits, smiling. Jigna, granddaughter has called on a few occasions to check on patient, appears to be significantly involved in patient's care and support at home.
[2021-05-16 19:00] VITALS: BP 115/78
[2021-05-16] MEDS: ENOXAPARIN 40 MG/0.4 ML SYRINGE. SQ SCH (19:17)
[2021-05-16] MEDS: REMDESIVIR 100mg in NORMAL SALINE 250ML X 4 DAYS IV SCH (22:16)
[2021-05-16] MEDS: traZODone 50 MG TABLET. PO SCH (22:17)
[2021-05-16 23:00] VITALS: BP 136/98
[2021-05-17 02:48] VITALS: BP 130/86
[2021-05-17 07:00] VITALS: BP 130/97
[2021-05-17 07:52] LABS: GFR 64.1; POTASSIUM 3.8 mmol/L (3.5-5.1)
[2021-05-17] MEDS: INSULIN LISPRO 300 UNITS/3 ML VIAL. SQ SCH ×3 (08:00→17:00)
[2021-05-17 08:04] LABS: BASO % 0 % (0-3); EOS % 0 % (0-3); HEMATOCRIT 47.8 % (36.0-47.0); HEMOGLOBIN 15.4 g/dL (12.0-15.5); LYMPH # 0.6 x10^3/uL (1.0-4.8); LYMPH % 5 % (24-48); MEAN CORPUSCULAR HEMOGLOBIN 31 pg (25-35); MEAN CORPUSCULAR HGB CONC 32 g/dL (31-37); MEAN CORPUSCULAR VOLUME 95 fL (79-100); MONO % 8 % (0-9); NEUT # 10.9 x10^3/uL (1.8-7.7); NEUT % 87 % (31-73); PLATELET COUNT 175 x10^3/uL (140-400); RED BLOOD COUNT 5.02 x10^6/uL (3.50-5.40); RED CELL DISTRIBUTION WIDTH 14.4 % (11.5-14.5); WHITE BLOOD COUNT 12.5 x10^3/uL (4.0-11.0)
[2021-05-17] MEDS: IV 1/2 NORMAL SALINE 1,000 ML IV SCH ×2 (08:40→20:10)
--- NOTE | 2021-05-17 08:45 | PDOC ---
PROGRESS NOTES Date of Service: DATE: 05/17/21 TIME: 08:43 Subjective Subjective pt more awake today Objective Objective Vital Signs Date Time Temp Pulse Resp B/P (MAP) Pulse Ox O2 Delivery O2 Flow Rate FiO2 05/17/21 02:48 98.1 80 17 130/86 (101) 94 Nasal Cannula 5.0 98.1 Intake and Output 05/17/21 07:00 Intake Total 1585 ml Output Total 300 ml Balance 1285 ml Intake Oral 590 ml IV Total 995 ml Output Urine Total 300 ml # Voids 1 Physical Exam Abdomen: Soft, No tenderness Heart: Regular rate Extremities: No edema General: Alert, Oriented X3 (person and place), Cooperative, No acute distress HEENT: Atraumatic Lungs: Other (on NC) MUSCULOSKELETAL: Osteoarthritic changes both hands Neuro: Normal speech, Sensation intact Psych/Mental Status: Mood NL Skin: No significant lesion Diagnosis Problem List Problems Medical Problems: (1) COVID-19 Status: Acute (2) Pneumonia Status: Acute Assessment Assessment Problems Medical Problems: (1) COVID-19 Status: Acute (2) Pneumonia Status: Acute FINAL IMPRESSION: 1. COVID pneumonia. 2. Hypoxia with respiratory failure. 3. Diabetes. 4. History of pacemaker for sick sinus syndrome. 5. Dementia. 6. Smoking history. PLAN: wbc 12 down from 14. on Remdisiveir Dexamethasone Lovenox ZIthromax+rocephin At this time, the patient is admitted to the hospital and started on remdesivir, dexamethasone and Lovenox for DVT prophylaxis and also broad spectrum antibiotics, Zithromax, Rocephin and pulmonary consult and see if she improves. Plan Plan of Care Problems Medical Problems: (1) COVID-19 Status: Acute (2) Pneumonia Status: Acute Comment Review of Relevant I have reviewed the following items dusty (where applicable) has been applied. Labs Laboratory Tests Test 05/16/21 12:02 05/16/21 13:44 05/16/21 16:42 05/16/21 20:35 Glucose (Fingerstick) 125 mg/dL (70-99) 148 mg/dL (70-99) 185 mg/dL (70-99) Troponin I Quantitative 0.095 ng/mL (0.000-0.055) Test 05/17/21 06:00 White Blood Count 12.5 x10^3/uL (4.0-11.0) Red Blood Count 5.02 x10^6/uL (3.50-5.40) Hemoglobin 15.4 g/dL (12.0-15.5) Hematocrit 47.8 % (36.0-47.0) Mean Corpuscular Volume 95 fL (79-100) Mean Corpuscular Hemoglobin 31 pg (25-35) Mean Corpuscular Hemoglobin Concent 32 g/dL (31-37) Red Cell Distribution Width 14.4 % (11.5-14.5) Platelet Count 175 x10^3/uL (140-400) Neutrophils (%) (Auto) 87 % (31-73) Lymphocytes (%) (Auto) 5 % (24-48) Monocytes (%) (Auto) 8 % (0-9) Eosinophils (%) (Auto) 0 % (0-3) Basophils (%) (Auto) 0 % (0-3) Neutrophils # (Auto) 10.9 x10^3/uL (1.8-7.7) Lymphocytes # (Auto) 0.6 x10^3/uL (1.0-4.8) Monocytes # (Auto) 1.0 x10^3/uL (0.0-1.1) Eosinophils # (Auto) 0.0 x10^3/uL (0.0-0.7) Basophils # (Auto) 0.0 x10^3/uL (0.0-0.2) Sodium Level 144 mmol/L (136-145) Potassium Level 3.8 mmol/L (3.5-5.1) Chloride Level 107 mmol/L (98-107) Carbon Dioxide Level 30 mmol/L (21-32) Anion Gap 7 (6-14) Blood Urea Nitrogen 39 mg/dL (7-20) Creatinine 1.0 mg/dL (0.6-1.0) Estimated GFR (Cockcroft-Gault) 64.1 Glucose Level 134 mg/dL (70-99) Calcium Level 9.0 mg/dL (8.5-10.1) Triglycerides Level 57 mg/dL (0-150) Cholesterol Level 181 mg/dL (0-200) LDL Cholesterol, Calculated 125 mg/dL (0-100) VLDL Cholesterol, Calculated 11 mg/dL (0-40) Non-HDL Cholesterol Calculated 136 mg/dL (0-129) HDL Cholesterol 45 mg/dL (40-60) Cholesterol/HDL Ratio 4.0 Medications Current Medications Ascorbic Acid (Vitamin C) 1,000 mg DAILY PO Last administered on 05/16/21 10:07; Start 05/16/21 at 09:00 Aspirin (Ecotrin) 81 mg [id number] PO Last administered on 05/16/21at 14:34; Start 05/16/21 at 13:00 Azithromycin (Zithromax) 250 mg DAILY PO Last administered on 05/16/21at 10:07; Start 05/16/21 at 09:00 Ceftriaxone Sodium (Rocephin) 1 gm Q24H IVP Last administered on 05/16/21 13:00; Start 05/16/21 at 13:00 Remdesivir 100 mg/ Sodium Chloride 230 ml @ 460 mls/hr Q24H IV Last administered on 05/16/21at 22:16; Start 05/16/21 at 21:00; Stop 05/19/21 at 21:29 Tramadol HCl (Ultram) 50 mg TID PO Last administered on 05/16/21 22:17; Start 05/16/21 at 09:00 Vitamin D (Vitamin D3) 5,000 unit DAILY PO Last administered on 05/16/21 10:07; Start 05/16/21 at 09:00 Zinc Sulfate (Orazinc) 220 mg DAILY PO Last administered on 05/16/21at 10:08; Start 05/16/21 at 09:00 Vitals/I & O Vital Sign - Last 24 Hours 05/16/21 05/16/21 05/16/21 05/16/21 10:12 10:42 11:00 14:34 Temp 96.8 96.8 Pulse 76 Resp 24 16 24 B/P (MAP) 141/95 (110) Pulse Ox 98 96 96 96 O2 Delivery Nasal Cannula Nasal Cannula Nasal Cannula Nasal Cannula O2 Flow Rate 3.0 5.5 4.0 5.0 05/16/21 05/16/21 05/16/21 05/16/21 15:04 15:22 19:00 20:00 Temp 98.2 97.8 98.2 97.8 Pulse 70 75 Resp 20 16 16 B/P (MAP) 128/81 (97) 115/78 (90) Pulse Ox 96 96 92 O2 Delivery Nasal Cannula Nasal Cannula Nasal Cannula Nasal Cannula O2 Flow Rate 4.0 4.0 4.0 5.0 05/16/21 05/16/21 05/16/21 05/17/21 22:17 22:47 23:00 02:48 Temp 98.0 98.1 98.0 98.1 Pulse 75 80 Resp 20 20 16 17 B/P (MAP) 136/98 (111) 130/86 (101) Pulse Ox 92 92 92 94 O2 Delivery Nasal Cannula Nasal Cannula Nasal Cannula Nasal Cannula O2 Flow Rate 4.0 4.0 4.0 5.0 Intake and Output 05/16/21 05/16/21 05/17/21 15:00 23:00 07:00 Intake Total 120 ml 1415 ml 50 ml Output Total 300 ml Balance 120 ml 1415 ml -250 ml Justifications for Admission Other Justification ADDISON ROBERTSON MD May 17, 2021 08:45
[2021-05-17] MEDS: AZITHROMYCIN 250 MG TABLET. PO SCH (08:54)
[2021-05-17] MEDS: REPAGLINIDE 0.5 MG TABLET PO SCH ×2 (08:54→17:12)
[2021-05-17] MEDS: ASPIRIN ENTERIC COATED 81 MG TABLET.DR. PO SCH (08:54)
[2021-05-17] MEDS: ZINC SULFATE 220 MG CAPSULE. PO SCH (08:54)
[2021-05-17] MEDS: ASCORBIC ACID 1,000 MG TABLET PO SCH (08:54)
[2021-05-17] MEDS: traMADol 50 MG TABLET PO SCH ×3 (08:55→21:11)
[2021-05-17] MEDS: DEXAMETHASONE SOD PHOS 4 MG/ML VIAL IVP SCH (08:55)
[2021-05-17] MEDS: CHOLECALCIFEROL (VITAMIN D3) 5,000 UNIT CAPSULE PO SCH (08:55)
[2021-05-17 11:00] VITALS: BP 139/96
--- NOTE | 2021-05-17 11:48 | PDOC ---
ISA CHOPRA LELIA 05/17/21 1147: CARDIO Progress Notes Date and Time Date of Service 05/17/21 Time of Evaluation 1145 Subjective Subjective: No Chest Pain, No shortness of breath, No Palpitations Vitals Vitals Vital Signs Date Time Temp Pulse Resp B/P (MAP) Pulse Ox O2 Delivery O2 Flow Rate FiO2 05/17/21 08:55 Nasal Cannula 4.0 05/17/21 07:00 96.2 79 24 130/97 (108) 94 96.2 Weight Weight [ ] Input and Output Intake and Output Intake and Output 05/17/21 07:00 Intake Total 1585 ml Output Total 300 ml Balance 1285 ml Intake Oral 590 ml IV Total 995 ml Output Urine Total 300 ml # Voids 1 Laboratory Labs Laboratory Tests Test 05/16/21 12:02 05/16/21 13:44 05/16/21 16:42 05/16/21 20:35 Glucose (Fingerstick) 125 mg/dL (70-99) 148 mg/dL (70-99) 185 mg/dL (70-99) Troponin I Quantitative 0.095 ng/mL (0.000-0.055) Test 05/17/21 06:00 05/17/21 09:16 White Blood Count 12.5 x10^3/uL (4.0-11.0) Red Blood Count 5.02 x10^6/uL (3.50-5.40) Hemoglobin 15.4 g/dL (12.0-15.5) Hematocrit 47.8 % (36.0-47.0) Mean Corpuscular Volume 95 fL (79-100) Mean Corpuscular Hemoglobin 31 pg (25-35) Mean Corpuscular Hemoglobin Concent 32 g/dL (31-37) Red Cell Distribution Width 14.4 % (11.5-14.5) Platelet Count 175 x10^3/uL (140-400) Neutrophils (%) (Auto) 87 % (31-73) Lymphocytes (%) (Auto) 5 % (24-48) Monocytes (%) (Auto) 8 % (0-9) Eosinophils (%) (Auto) 0 % (0-3) Basophils (%) (Auto) 0 % (0-3) Neutrophils # (Auto) 10.9 x10^3/uL (1.8-7.7) Lymphocytes # (Auto) 0.6 x10^3/uL (1.0-4.8) Monocytes # (Auto) 1.0 x10^3/uL (0.0-1.1) Eosinophils # (Auto) 0.0 x10^3/uL (0.0-0.7) Basophils # (Auto) 0.0 x10^3/uL (0.0-0.2) Sodium Level 144 mmol/L (136-145) Potassium Level 3.8 mmol/L (3.5-5.1) Chloride Level 107 mmol/L (98-107) Carbon Dioxide Level 30 mmol/L (21-32) Anion Gap 7 (6-14) Blood Urea Nitrogen 39 mg/dL (7-20) Creatinine 1.0 mg/dL (0.6-1.0) Estimated GFR (Cockcroft-Gault) 64.1 Glucose Level 134 mg/dL (70-99) Calcium Level 9.0 mg/dL (8.5-10.1) Triglycerides Level 57 mg/dL (0-150) Cholesterol Level 181 mg/dL (0-200) LDL Cholesterol, Calculated 125 mg/dL (0-100) VLDL Cholesterol, Calculated 11 mg/dL (0-40) Non-HDL Cholesterol Calculated 136 mg/dL (0-129) HDL Cholesterol 45 mg/dL (40-60) Cholesterol/HDL Ratio 4.0 Glucose (Fingerstick) 140 mg/dL (70-99) Physical Exam HEENT: Neck Supple W Full Motion Chest: Symmetric LUNGS: Other (on NC) Heart: RRR Abdomen: Soft N/T Extremities: No Edema Neurology: alert, follow commands, confused Assessment Assessment 1. COVID PNA 2. Encephalopathy with underlying dementia; CT head without acute findings 3. Leukocytosis 4. Mild troponin elevation; highest 0.1. Most probably type II, demand ischemia. remains CP free. 5. Chronic systolic CHF, cardiomyopathy; Echo with LVEF 30-35% 6. SSS s/p PPM ([place]). device check last month with normal function, stable lead impedances, and adequate battery life. No AFIB 7. Hypertension; controlled 8. Diabetes, II 9. COPD with long-standing h/o tobaccoism Recommendations ASA therapy Trend troponin Ongoing lung optimization, treatment of COVID PNA Outpatient echo to re-assess LV systolic function when recovered from COVID Consider outpatient ischemic evaluation Supportive care Justicifation of Admission Dx: Justifications for Admission: Justification of Admission Dx: Yes MOLLY CANALES MD 05/17/219: CARDIO Progress Notes Assessment Assessment Patient seen and evaluated. I agree with our nurse practitioners assessment and plan. COVID PNA. Continuing present treatment. Encephalopathy with underlying dementia; CT head without acute findings Mild troponin elevation; highest 0.1. Most probably type II, demand ischemia. remains CP free. Continue aspirin treatments. Outpatient echo as per Covid guidelines. Outpatient follow-up. Chronic systolic CHF, cardiomyopathy; Echo with LVEF 30-35% SSS s/p PPM ([place]). device check last month with normal function, stable lead impedances, and adequate battery life. No AFIB Hypertension; controlled COPD with long-standing h/o tobaccoism ISA CHOPRA APRN May 17, 2021 11:47 MOLLY CANALES MD May 17, 2021 18:19
[2021-05-17] MEDS: cefTRIAXone IV Push 1 GM VIAL. IVP SCH (14:46)
[2021-05-17 15:00] VITALS: BP 107/82
[2021-05-17] MEDS: ENOXAPARIN 40 MG/0.4 ML SYRINGE. SQ SCH (17:12)
[2021-05-17 19:00] VITALS: BP 128/93
[2021-05-17] MEDS: LACTOBACILLUS RHAMNOSUS GG 1 CAPSULE. PO SCH (21:10)
[2021-05-17] MEDS: traZODone 50 MG TABLET. PO SCH (21:10)
[2021-05-17] MEDS: ATORVASTATIN CALCIUM 20 MG TABLET PO SCH (21:10)
[2021-05-17] MEDS: REMDESIVIR 100mg in NORMAL SALINE 250ML X 4 DAYS IV SCH (21:11)
[2021-05-17 23:00] VITALS: BP 121/83
[2021-05-18 03:00] VITALS: BP 136/82
[2021-05-18 07:00] VITALS: BP 127/54
[2021-05-18] MEDS: INSULIN LISPRO 300 UNITS/3 ML VIAL. SQ SCH ×3 (08:00→17:00)
--- NOTE | 2021-05-18 09:21 | PDOC ---
PROGRESS NOTES Date of Service: DATE: 05/18/21 TIME: 09:21 Subjective Subjective more awake ,eating better Objective Objective Vital Signs Date Time Temp Pulse Resp B/P (MAP) Pulse Ox O2 Delivery O2 Flow Rate FiO2 05/18/21 07:00 97.5 50 21 127/54 (78) 91 97.5 05/18/21 03:00 Nasal Cannula 4.0 Intake and Output 05/18/21 07:00 Intake Total 200 ml Balance 200 ml Intake Oral 200 ml # Voids 2 Physical Exam Abdomen: Soft, No tenderness Heart: Regular rate Extremities: No edema General: Alert, Oriented X3 (person and place), Cooperative, No acute distress HEENT: Atraumatic Lungs: Other (on NC) MUSCULOSKELETAL: Osteoarthritic changes both hands Neuro: Normal speech, Sensation intact Psych/Mental Status: Mood NL Skin: No significant lesion Diagnosis Problem List Problems Medical Problems: (1) COVID-19 Status: Acute (2) Pneumonia Status: Acute Assessment Assessment Problems Medical Problems: (1) COVID-19 Status: Acute (2) Pneumonia Status: Acute FINAL IMPRESSION: 1. COVID pneumonia. 2. Hypoxia with respiratory failure.on oxygen N/C 3. Diabetes. 4. History of pacemaker for sick sinus syndrome. 5. Dementia. 6. Smoking history. PLAN:clinically improving wbc 12 down from 14. on Remdisiveir Dexamethasone Lovenox ZIthromax+rocephin At this time, the patient is admitted to the hospital and started on remdesivir, dexamethasone and Lovenox for DVT prophylaxis and also broad spectrum antibiotics, Zithromax, Rocephin and pulmonary consult and see if she improves. Plan Plan of Care Problems Medical Problems: (1) COVID-19 Status: Acute (2) Pneumonia Status: Acute Comment Review of Relevant I have reviewed the following items dusty (where applicable) has been applied. Labs Laboratory Tests Test 05/17/21 12:47 05/17/21 17:46 05/18/21 07:42 Glucose (Fingerstick) 194 mg/dL (70-99) 114 mg/dL (70-99) 160 mg/dL (70-99) Medications Current Medications Atorvastatin Calcium (Lipitor) 20 mg QHS PO Last administered on 05/17/21at 21:10; Start 05/17/21 at 21:00 Lactobacillus Rhamnosus (Culturelle) 1 cap BID PO Last administered on 05/17/21at 21:10; Start 05/17/21 at 21:00 Vitals/I & O Vital Sign - Last 24 Hours 05/17/21 05/17/21 05/17/21 05/17/21 09:25 11:00 14:47 15:00 Temp 95.0 97.2 95.0 97.2 Pulse 78 79 Resp 22 18 B/P (MAP) 139/96 (110) 107/82 (90) Pulse Ox 96 90 98 O2 Delivery Nasal Cannula Nasal Cannula Nasal Cannula Nasal Cannula O2 Flow Rate 4.0 5.0 8.0 5.0 05/17/21 05/17/21 05/17/21 05/17/21 16:39 19:00 20:00 21:11 Temp 98.2 98.2 Pulse 45 Resp 20 20 B/P (MAP) 128/93 (105) Pulse Ox 90 91 O2 Delivery Nasal Cannula Nasal Cannula Nasal Cannula Nasal Cannula O2 Flow Rate 8.0 8.0 4.0 4.0 05/17/21 05/18/21 05/18/21 23:00 03:00 07:00 Temp 98.0 98.0 97.5 98.0 98.0 97.5 Pulse 80 83 50 Resp 19 17 21 B/P (MAP) 121/83 (96) 136/82 (100) 127/54 (78) Pulse Ox 97 97 91 O2 Delivery Nasal Cannula Nasal Cannula O2 Flow Rate 4.0 4.0 Intake and Output 05/17/21 05/17/21 05/18/21 15:00 23:00 07:00 Intake Total 200 ml Balance 200 ml Justifications for Admission Other Justification ADDISON ROBERTSON MD May 18, 2021 09:21
[2021-05-18] MEDS: ZINC SULFATE 220 MG CAPSULE. PO SCH (10:05)
[2021-05-18] MEDS: LACTOBACILLUS RHAMNOSUS GG 1 CAPSULE. PO SCH ×2 (10:05→21:43)
[2021-05-18] MEDS: AZITHROMYCIN 250 MG TABLET. PO SCH (10:05)
[2021-05-18] MEDS: ASPIRIN ENTERIC COATED 81 MG TABLET.DR. PO SCH (10:05)
[2021-05-18] MEDS: REPAGLINIDE 0.5 MG TABLET PO SCH ×2 (10:06→16:26)
[2021-05-18] MEDS: traMADol 50 MG TABLET PO SCH ×3 (10:06→21:43)
[2021-05-18] MEDS: CHOLECALCIFEROL (VITAMIN D3) 5,000 UNIT CAPSULE PO SCH (10:07)
[2021-05-18] MEDS: ASCORBIC ACID 1,000 MG TABLET PO SCH (10:09)
[2021-05-18] MEDS: DEXAMETHASONE SOD PHOS 4 MG/ML VIAL IVP SCH (10:09)
--- NOTE | 2021-05-18 10:21 | PDOC ---
PULMONARY PROGRESS NOTES DATE: 05/18/21 TIME: 10:20 Subjective remains on Nasal canula does not follow much commands. Vitals Vital Signs Date Time Temp Pulse Resp B/P (MAP) Pulse Ox O2 Delivery O2 Flow Rate FiO2 05/18/21 10:06 91 Nasal Cannula 4.0 05/18/21 07:00 97.5 50 21 127/54 (78) 97.5 Comments Visual exam done due to COVID-19. No paradoxical breathing no skin rash no leg edema Labs Laboratory Tests Test 05/16/21 12:02 05/16/21 13:44 05/16/21 16:42 05/16/21 20:35 Glucose (Fingerstick) 125 mg/dL (70-99) 148 mg/dL (70-99) 185 mg/dL (70-99) Troponin I Quantitative 0.095 ng/mL (0.000-0.055) Test 05/17/21 06:00 05/17/21 09:16 05/17/21 12:47 05/17/21 17:46 White Blood Count 12.5 x10^3/uL (4.0-11.0) Red Blood Count 5.02 x10^6/uL (3.50-5.40) Hemoglobin 15.4 g/dL (12.0-15.5) Hematocrit 47.8 % (36.0-47.0) Mean Corpuscular Volume 95 fL (79-100) Mean Corpuscular Hemoglobin 31 pg (25-35) Mean Corpuscular Hemoglobin Concent 32 g/dL (31-37) Red Cell Distribution Width 14.4 % (11.5-14.5) Platelet Count 175 x10^3/uL (140-400) Neutrophils (%) (Auto) 87 % (31-73) Lymphocytes (%) (Auto) 5 % (24-48) Monocytes (%) (Auto) 8 % (0-9) Eosinophils (%) (Auto) 0 % (0-3) Basophils (%) (Auto) 0 % (0-3) Neutrophils # (Auto) 10.9 x10^3/uL (1.8-7.7) Lymphocytes # (Auto) 0.6 x10^3/uL (1.0-4.8) Monocytes # (Auto) 1.0 x10^3/uL (0.0-1.1) Eosinophils # (Auto) 0.0 x10^3/uL (0.0-0.7) Basophils # (Auto) 0.0 x10^3/uL (0.0-0.2) Sodium Level 144 mmol/L (136-145) Potassium Level 3.8 mmol/L (3.5-5.1) Chloride Level 107 mmol/L (98-107) Carbon Dioxide Level 30 mmol/L (21-32) Anion Gap 7 (6-14) Blood Urea Nitrogen 39 mg/dL (7-20) Creatinine 1.0 mg/dL (0.6-1.0) Estimated GFR (Cockcroft-Gault) 64.1 Glucose Level 134 mg/dL (70-99) Calcium Level 9.0 mg/dL (8.5-10.1) Triglycerides Level 57 mg/dL (0-150) Cholesterol Level 181 mg/dL (0-200) LDL Cholesterol, Calculated 125 mg/dL (0-100) VLDL Cholesterol, Calculated 11 mg/dL (0-40) Non-HDL Cholesterol Calculated 136 mg/dL (0-129) HDL Cholesterol 45 mg/dL (40-60) Cholesterol/HDL Ratio 4.0 Glucose (Fingerstick) 140 mg/dL (70-99) 194 mg/dL (70-99) 114 mg/dL (70-99) Test 05/18/21 07:42 Glucose (Fingerstick) 160 mg/dL (70-99) Laboratory Tests Test 05/17/21 12:47 05/17/21 17:46 05/18/21 07:42 Glucose (Fingerstick) 194 mg/dL (70-99) 114 mg/dL (70-99) 160 mg/dL (70-99) Medications Active Scripts Medications Dose Route/Sig Max Daily Dose Days Date Category Cyproheptadine Hcl 4 Mg Tablet 1 Tab PO BID 10/07/17 Reported Nateglinide 60 Mg Tablet 60 Mg PO BID 10/07/17 Reported Zofran Odt (Ondansetron) 4 Mg Tab.rapdis 1 Tab SL Q8HRS 09/10/17 Rx Trazodone Hcl 50 Mg Tablet 50 Mg PO HS 06/25/17 Reported Sonata (Zaleplon) 10 Mg Capsule 10 Mg PO QHS 06/25/17 Reported Tramadol Hcl 50 Mg Tablet 1 Tab PO TID 06/25/17 Reported Impression . 1. Acute hypoxic respiratory failure secondary to COVID-19 viral pneumonia. Cannot exclude any superimposed bacterial pneumonia. 2. COVID-19 positive. 3. Abnormal chest x-ray with faint interstitial infiltrate, left base. 4. Leukocytosis. 5. Prerenal azotemia. 6. Mildly increased troponin level. Plan . RECOMMENDATIONS: 1. Discussed with RN. Continue present oxygen. Her respiratory status overall stable on 3-4 liters. 2. Continue empiric antibiotic. 3. Finish the course of remdesivir, 4. Continue dexamethasone. 5. Lovenox for DVT prophylaxis. 6. We will be available for any further recommendations. Please inform us if the oxygen requirement changes. ADRIANO HUGHES MD May 18, 2021 10:21
[2021-05-18 11:00] VITALS: BP 124/88
[2021-05-18] MEDS: IV 1/2 NORMAL SALINE 1,000 ML IV SCH (11:20)
--- NOTE | 2021-05-18 12:29 | NUR ---
SW following. Discussed with RN, pt from home with family, 4L (uses 2.5L at night at home). COVID-19 positive. Pt still dropping into low 70s with movement. Pt not ready for discharge. SW will continue to follow.
[2021-05-18] MEDS: cefTRIAXone IV Push 1 GM VIAL. IVP SCH (14:38)
[2021-05-18 15:00] VITALS: BP 137/107
[2021-05-18] MEDS: ENOXAPARIN 40 MG/0.4 ML SYRINGE. SQ SCH (16:26)
[2021-05-18] MEDS: REMDESIVIR 100mg in NORMAL SALINE 250ML X 4 DAYS IV SCH (21:43)
[2021-05-18] MEDS: traZODone 50 MG TABLET. PO SCH (21:44)
[2021-05-18] MEDS: ATORVASTATIN CALCIUM 20 MG TABLET PO SCH (21:44)
[2021-05-18 23:00] VITALS: BP 147/119
[2021-05-19] MEDS: IV 1/2 NORMAL SALINE 1,000 ML IV SCH ×2 (00:40→11:52)
[2021-05-19 03:00] VITALS: BP 117/84
[2021-05-19 06:52] LABS: BASO % 0 % (0-3); EOS % 0 % (0-3); HEMATOCRIT 45.6 % (36.0-47.0); HEMOGLOBIN 15.2 g/dL (12.0-15.5); LYMPH # 0.5 x10^3/uL (1.0-4.8); LYMPH % 4 % (24-48); MEAN CORPUSCULAR HEMOGLOBIN 31 pg (25-35); MEAN CORPUSCULAR HGB CONC 33 g/dL (31-37); MEAN CORPUSCULAR VOLUME 93 fL (79-100); MONO # 1.2 x10^3/uL (0.0-1.1); MONO % 9 % (0-9); NEUT # 11.9 x10^3/uL (1.8-7.7); NEUT % 87 % (31-73); PLATELET COUNT 219 x10^3/uL (140-400); RED BLOOD COUNT 4.91 x10^6/uL (3.50-5.40); RED CELL DISTRIBUTION WIDTH 13.6 % (11.5-14.5); WHITE BLOOD COUNT 13.7 x10^3/uL (4.0-11.0)
[2021-05-19 07:00] VITALS: BP 131/89
[2021-05-19 07:24] LABS: CALCIUM 8.6 mg/dL (8.5-10.1); CREATININE 0.8 mg/dL (0.6-1.0); GFR 82.9; POTASSIUM 3.3 mmol/L (3.5-5.1)
[2021-05-19] MEDS: INSULIN LISPRO 300 UNITS/3 ML VIAL. SQ SCH ×3 (08:00→17:00)
[2021-05-19 11:00] VITALS: BP 153/96
[2021-05-19] MEDS ORDERED: POTASSIUM CHLORIDE 20 MEQ TABLET.ER. PO ONE (11:00)
[2021-05-19] MEDS: ZINC SULFATE 220 MG CAPSULE. PO SCH (11:02)
[2021-05-19] MEDS: REPAGLINIDE 0.5 MG TABLET PO SCH ×2 (11:02→15:32)
[2021-05-19] MEDS: ASPIRIN ENTERIC COATED 81 MG TABLET.DR. PO SCH (11:02)
[2021-05-19] MEDS: CHOLECALCIFEROL (VITAMIN D3) 5,000 UNIT CAPSULE PO SCH (11:02)
[2021-05-19] MEDS: DEXAMETHASONE SOD PHOS 4 MG/ML VIAL IVP SCH (11:03)
[2021-05-19] MEDS: LACTOBACILLUS RHAMNOSUS GG 1 CAPSULE. PO SCH ×2 (11:04→20:40)
[2021-05-19] MEDS: AZITHROMYCIN 250 MG TABLET. PO SCH (11:04)
[2021-05-19] MEDS: traMADol 50 MG TABLET PO SCH ×3 (11:05→20:40)
[2021-05-19] MEDS: ASCORBIC ACID 1,000 MG TABLET PO SCH (11:05)
--- NOTE | 2021-05-19 11:32 | PDOC ---
PROGRESS NOTES Date of Service: DATE: 05/19/21 TIME: 11:31 Subjective Subjective weak, eating better Objective Objective Vital Signs Date Time Temp Pulse Resp B/P (MAP) Pulse Ox O2 Delivery O2 Flow Rate FiO2 05/19/21 11:05 100 Nasal Cannula 4.0 05/19/21 07:00 97.7 72 18 131/89 (103) 97.7 Intake and Output 05/19/21 07:00 Intake Total 250 ml Output Total 200 ml Balance 50 ml Intake Oral 250 ml Output Urine Total 200 ml # Voids 1 Physical Exam Abdomen: Soft, No tenderness Heart: Regular rate Extremities: No edema General: Alert, Oriented X3 (person and place), Cooperative, No acute distress HEENT: Atraumatic Lungs: Other (on NC) MUSCULOSKELETAL: Osteoarthritic changes both hands Neuro: Normal speech, Sensation intact Psych/Mental Status: Mood NL Skin: No significant lesion Diagnosis Problem List Problems Medical Problems: (1) COVID-19 Status: Acute (2) Pneumonia Status: Acute Assessment Assessment Problems Medical Problems: (1) COVID-19 Status: Acute (2) Pneumonia Status: Acute FINAL IMPRESSION: 1. COVID pneumonia. 2. Hypoxia with respiratory failure.on oxygen N/C 3. Diabetes. 4. History of pacemaker for sick sinus syndrome. 5. Dementia. 6. Smoking history. PLAN:on oxygen N/c clinically improving wbc 12 down from 14. on Remdisiveir Dexamethasone Lovenox ZIthromax+rocephin At this time, the patient is admitted to the hospital and started on remdesivir, dexamethasone and Lovenox for DVT prophylaxis and also broad spectrum antibiotics, Zithromax, Rocephin and pulmonary consult and see if she improves. Plan Plan of Care Problems Medical Problems: (1) COVID-19 Status: Acute (2) Pneumonia Status: Acute Comment Review of Relevant I have reviewed the following items dusty (where applicable) has been applied. Labs Laboratory Tests Test 05/18/21 11:32 05/18/21 17:11 05/18/21 22:59 05/19/21 06:30 Glucose (Fingerstick) 113 mg/dL (70-99) 124 mg/dL (70-99) 78 mg/dL (70-99) White Blood Count 13.7 x10^3/uL (4.0-11.0) Red Blood Count 4.91 x10^6/uL (3.50-5.40) Hemoglobin 15.2 g/dL (12.0-15.5) Hematocrit 45.6 % (36.0-47.0) Mean Corpuscular Volume 93 fL (79-100) Mean Corpuscular Hemoglobin 31 pg (25-35) Mean Corpuscular Hemoglobin Concent 33 g/dL (31-37) Red Cell Distribution Width 13.6 % (11.5-14.5) Platelet Count 219 x10^3/uL (140-400) Neutrophils (%) (Auto) 87 % (31-73) Lymphocytes (%) (Auto) 4 % (24-48) Monocytes (%) (Auto) 9 % (0-9) Eosinophils (%) (Auto) 0 % (0-3) Basophils (%) (Auto) 0 % (0-3) Neutrophils # (Auto) 11.9 x10^3/uL (1.8-7.7) Lymphocytes # (Auto) 0.5 x10^3/uL (1.0-4.8) Monocytes # (Auto) 1.2 x10^3/uL (0.0-1.1) Eosinophils # (Auto) 0.0 x10^3/uL (0.0-0.7) Basophils # (Auto) 0.0 x10^3/uL (0.0-0.2) Sodium Level 143 mmol/L (136-145) Potassium Level 3.3 mmol/L (3.5-5.1) Chloride Level 109 mmol/L (98-107) Carbon Dioxide Level 26 mmol/L (21-32) Anion Gap 8 (6-14) Blood Urea Nitrogen 36 mg/dL (7-20) Creatinine 0.8 mg/dL (0.6-1.0) Estimated GFR (Cockcroft-Gault) 82.9 Glucose Level 122 mg/dL (70-99) Calcium Level 8.6 mg/dL (8.5-10.1) Test 05/19/21 08:04 Glucose (Fingerstick) 116 mg/dL (70-99) Medications Current Medications Potassium Chloride (Klor-Con) 40 meq 1X ONCE PO Last administered on 05/19/21at 11:06; Start 05/19/21 at 11:00; Stop 05/19/21 at 11:01; Status DC Vitals/I & O Vital Sign - Last 24 Hours 05/18/21 05/18/21 05/18/21 05/18/21 14:39 15:00 20:00 22:13 Pulse 107 Resp 22 18 B/P (MAP) 137/107 (117) Pulse Ox 87 90 94 O2 Delivery Nasal Cannula Nasal Cannula Nasal Cannula O2 Flow Rate 4.0 4.0 4.0 05/18/21 05/19/21 05/19/21 05/19/21 23:00 03:00 07:00 11:05 Temp 96.0 95.7 97.7 96.0 95.7 97.7 Pulse 88 43 72 Resp 24 16 18 B/P (MAP) 147/119 (128) 117/84 (95) 131/89 (103) Pulse Ox 89 90 100 100 O2 Delivery Nasal Cannula Nasal Cannula O2 Flow Rate 4.0 4.0 Intake and Output 05/18/21 05/18/21 05/19/21 15:00 23:00 07:00 Intake Total 0 ml 150 ml 100 ml Output Total 200 ml Balance -200 ml 150 ml 100 ml Justifications for Admission Other Justification ADDISON ROBERTSON MD May 19, 2021 11:32
[2021-05-19 11:40] LABS: PLT ESTIMATE ADEQUATE (ADEQUATE)
[2021-05-19 15:00] VITALS: BP 132/106
[2021-05-19] MEDS: cefTRIAXone IV Push 1 GM VIAL. IVP SCH (15:30)
[2021-05-19] MEDS: ENOXAPARIN 40 MG/0.4 ML SYRINGE. SQ SCH (15:32)
[2021-05-19 19:00] VITALS: BP 160/115
[2021-05-19] MEDS: traZODone 50 MG TABLET. PO SCH (20:40)
[2021-05-19] MEDS: ATORVASTATIN CALCIUM 20 MG TABLET PO SCH (20:40)
[2021-05-19] MEDS: REMDESIVIR 100mg in NORMAL SALINE 250ML X 4 DAYS IV SCH (20:40)
[2021-05-19 23:13] VITALS: BP 139/105
[2021-05-20 02:50] VITALS: BP 132/99
[2021-05-20] MEDS: IV 1/2 NORMAL SALINE 1,000 ML IV SCH (03:20)
[2021-05-20 07:00] VITALS: BP 146/102
[2021-05-20] MEDS: INSULIN LISPRO 300 UNITS/3 ML VIAL. SQ SCH ×3 (08:00→16:49)
[2021-05-20] MEDS: REPAGLINIDE 0.5 MG TABLET PO SCH ×2 (09:55→16:58)
[2021-05-20] MEDS: ASPIRIN ENTERIC COATED 81 MG TABLET.DR. PO SCH (09:55)
[2021-05-20] MEDS: CHOLECALCIFEROL (VITAMIN D3) 5,000 UNIT CAPSULE PO SCH (09:55)
[2021-05-20] MEDS: LACTOBACILLUS RHAMNOSUS GG 1 CAPSULE. PO SCH ×2 (09:56→21:11)
[2021-05-20] MEDS: ZINC SULFATE 220 MG CAPSULE. PO SCH (09:56)
[2021-05-20] MEDS: ASCORBIC ACID 1,000 MG TABLET PO SCH (09:56)
[2021-05-20] MEDS: AZITHROMYCIN 250 MG TABLET. PO SCH (09:56)
[2021-05-20] MEDS: traMADol 50 MG TABLET PO SCH ×3 (09:56→21:11)
[2021-05-20] MEDS: DEXAMETHASONE SOD PHOS 4 MG/ML VIAL IVP SCH (09:57)
--- NOTE | 2021-05-20 10:42 | PDOC ---
PROGRESS NOTES Date of Service: DATE: 05/20/21 TIME: 10:40 Subjective Subjective feels good Objective Objective Vital Signs Date Time Temp Pulse Resp B/P (MAP) Pulse Ox O2 Delivery O2 Flow Rate FiO2 05/20/21 09:56 94 Nasal Cannula 5.0 05/20/21 07:00 97.6 70 146/102 (117) 97.6 05/20/21 02:50 18 Intake and Output 05/20/21 07:00 Intake Total 120 ml Balance 120 ml Intake Oral 120 ml # Voids 2 Physical Exam Abdomen: Soft, No tenderness Heart: Regular rate Extremities: No edema General: Alert, Oriented X3 (person and place), Cooperative, No acute distress HEENT: Atraumatic Lungs: Other (on NC) MUSCULOSKELETAL: Osteoarthritic changes both hands Neuro: Normal speech, Sensation intact Psych/Mental Status: Mood NL Skin: No significant lesion Diagnosis Problem List Problems Medical Problems: (1) COVID-19 Status: Acute (2) Pneumonia Status: Acute Assessment Assessment Problems Medical Problems: (1) COVID-19 Status: Acute (2) Pneumonia Status: Acute FINAL IMPRESSION: 1. COVID pneumonia. 2. Hypoxia with respiratory failure.on oxygen N/C 3. Diabetes. 4. History of pacemaker for sick sinus syndrome. 5. Dementia. 6. Smoking history. PLAN: change to PO meds today d/c plans for tomorrow home with home health or SNU pt eval +treat. 6 mts walk on oxygen N/c clinically improving wbc 12 down from 14. finished Remdisiveir 5 day course Dexamethasone po Lovenox po doxycycline for 5 days Plan Plan of Care Problems Medical Problems: (1) COVID-19 Status: Acute (2) Pneumonia Status: Acute Comment Review of Relevant I have reviewed the following items dusty (where applicable) has been applied. Labs Laboratory Tests Test 05/19/21 11:52 05/19/21 17:15 05/19/21 20:19 05/19/21 20:38 Glucose (Fingerstick) 105 mg/dL (70-99) 213 mg/dL (70-99) 64 mg/dL (70-99) 111 mg/dL (70-99) Test 05/20/21 07:37 Glucose (Fingerstick) 121 mg/dL (70-99) Medications Current Medications Potassium Chloride (Klor-Con) 40 meq 1X ONCE PO Last administered on 05/19/21at 11:06; Start 05/19/21 at 11:00; Stop 05/19/21 at 11:01; Status DC Vitals/I & O Vital Sign - Last 24 Hours 05/19/21 05/19/21 05/19/21 05/19/21 11:00 11:05 11:36 15:00 Temp 98.3 98.2 98.3 98.2 Pulse 75 81 Resp 17 18 B/P (MAP) 153/96 (115) 132/106 (115) Pulse Ox 92 100 100 91 O2 Delivery Nasal Cannula Nasal Cannula Nasal Cannula Nasal Cannula O2 Flow Rate 4.0 4.0 4.0 4.0 05/19/21 05/19/21 05/19/21 05/19/21 15:30 16:04 19:00 20:00 Temp 97.3 97.3 Pulse 77 Resp 20 B/P (MAP) 160/115 (130) Pulse Ox 100 100 94 O2 Delivery Nasal Cannula Nasal Cannula Nasal Cannula Nasal Cannula O2 Flow Rate 4.0 4.0 4.0 4.0 05/19/21 05/19/21 05/20/21 05/20/21 21:10 23:13 02:50 07:00 Temp 97.3 98.1 97.6 97.3 98.1 97.6 Pulse 80 65 70 Resp 16 18 18 B/P (MAP) 139/105 (116) 132/99 (110) 146/102 (117) Pulse Ox 92 92 96 94 O2 Delivery Nasal Cannula Nasal Cannula Nasal Cannula Nasal Cannula O2 Flow Rate 4.0 4.0 4.0 5.0 05/20/21 05/20/21 08:00 09:56 Pulse Ox 94 O2 Delivery Nasal Cannula Nasal Cannula O2 Flow Rate 5.0 5.0 Intake and Output 05/19/21 05/19/21 05/20/21 15:00 23:00 07:00 Intake Total 120 ml Balance 120 ml Justifications for Admission Other Justification ADDISON ROBERTSON MD May 20, 2021 10:42
[2021-05-20 11:00] VITALS: BP 137/83
[2021-05-20] MEDS: DOXYCYCLINE HYCLATE 100 MG TABLET PO SCH ×2 (11:54→21:11)
[2021-05-20] MEDS: cefTRIAXone IV Push 1 GM VIAL. IVP SCH (12:16)
[2021-05-20 15:49] VITALS: BP 138/100
[2021-05-20] MEDS: ENOXAPARIN 40 MG/0.4 ML SYRINGE. SQ SCH (16:59)
[2021-05-20 19:00] VITALS: BP 105/80
[2021-05-20] MEDS: ATORVASTATIN CALCIUM 20 MG TABLET PO SCH (21:11)
[2021-05-20] MEDS: traZODone 50 MG TABLET. PO SCH (21:11)
[2021-05-20] MEDS ORDERED: ASPI-886 PO (22:26)
[2021-05-20] MEDS ORDERED: ATOR20TA58 PO (22:26)
[2021-05-20] MEDS ORDERED: DOXY100T PO (22:26)
[2021-05-20] MEDS ORDERED: DEXA4TAB63 PO (22:26)
--- NOTE | 2021-05-20 22:27 | SNU/HH DC ---
DISCHARGE WITH HOME HEALTH DISCHARGE INFORMATION: Discharge Date: May 21, 2021 Final Diagnosis: Problems Medical Problems: (1) COVID-19 Status: Acute (2) Pneumonia Status: Acute Condition on Discharge: Stable CODE STATUS: Code Status: Full HOME HEALTH: Face to Face: I certify this patient is under my care and that I, or a nurse practitioner or physician's assignment desk assistant working with me, had a face to face encounter that meets the physician face to face encounter requirements with this patient on []. Medical Complications: Pneumonia RN For Eval/Treatment: Yes Physical Therapy For: Evalulation/Treatment Home Health Aide For: Self-care PASTA MAKER For: Community Resources Pt Meets Homebound Status: Poor coordination w/ amb. POST DISCHARGE ORDERS: Activity Instructions for Disc: Activity as tolerated Weight Bearing Status after Di: Other, see below CHECKS AFTER DISCHARGE: Checks after discharge: Check blood press - daily, Check blood sugar, ac/hs TREATMENT/EQUIPMENT ORDERS: Adaptive Equipment Issued: None Discharge Respiratory Equipmen: Oxygen CERTIFICATION STATEMENT: Certification Statement: Certification Statement: Based on the above finding, I certify that this patient is confined to the home and needs intermittent fdc care, physical therapy and/or speech therapy, or continues to need occupational therapy.~ This patient is under my care, and I have initiated the establishment of the plan of care.~ This patient will be followed by myself or a community physician who will periodically review the plan of care. Home Meds Active Scripts Dexamethasone (Decadron) 4 Mg Tablet, 6 MG PO DAILYWBKFT for pneumonia for 5 Days, #8 TAB Prov:ADDISON ROBERTSON MD 05/20/21 Aspirin (ASPIRIN EC) 81 Mg Tablet.dr, 81 MG PO DAILYWBKFT for cad for 30 Days, #30 TAB.SR Prov:ADDISON ROBERTSON MD 05/20/21 Atorvastatin Calcium (ATORVASTATIN CALCIUM) 20 Mg Tablet, 20 MG PO QHS for chol for 30 Days, #30 TAB Prov:ADDISON ROBERTSON MD 05/20/21 Doxycycline Hyclate (DOXYCYCLINE HYCLATE) 100 Mg Tablet, 100 MG PO BID for pneumonia for 5 Days, #10 TAB Prov:ADDISON ROBERTSON MD 05/20/21 Ondansetron (ZOFRAN ODT) 4 Mg Tab.rapdis, 1 TAB SL Q8HRS, #10 TAB Prov:LACI MURRAY DO 09/10/17 Reported Medications Cyproheptadine Hcl (CYPROHEPTADINE HCL) 4 Mg Tablet, 1 TAB PO BID, #60 TAB 10/07/17 Nateglinide (NATEGLINIDE) 60 Mg Tablet, 60 MG PO BID, TAB 10/07/17 Trazodone Hcl (TRAZODONE HCL) 50 Mg Tablet, 50 MG PO HS, TAB 06/25/17 Zaleplon (SONATA) 10 Mg Capsule, 10 MG PO QHS for INSOMNIA, CAP 06/25/17 Tramadol Hcl (TRAMADOL HCL) 50 Mg Tablet, 1 TAB PO TID, #90 TAB 06/25/17 ADDISON ROBERTSON MD May 20, 2021 22:27
[2021-05-20 23:19] VITALS: BP 151/107
[2021-05-21 03:24] VITALS: BP 145/107
[2021-05-21 05:42] LABS: CALCIUM 8.5 mg/dL (8.5-10.1); CREATININE 0.7 mg/dL (0.6-1.0); GFR 96.7; POTASSIUM 4.1 mmol/L (3.5-5.1)
[2021-05-21 05:50] LABS: BASO % 0 % (0-3); EOS # 0.1 x10^3/uL (0.0-0.7); EOS % 1 % (0-3); HEMATOCRIT 48.3 % (36.0-47.0); HEMOGLOBIN 15.5 g/dL (12.0-15.5); LYMPH # 0.5 x10^3/uL (1.0-4.8); LYMPH % 4 % (24-48); MEAN CORPUSCULAR HEMOGLOBIN 31 pg (25-35); MEAN CORPUSCULAR HGB CONC 32 g/dL (31-37); MEAN CORPUSCULAR VOLUME 96 fL (79-100); MONO # 1.3 x10^3/uL (0.0-1.1); MONO % 9 % (0-9); NEUT # 12.5 x10^3/uL (1.8-7.7); NEUT % 87 % (31-73); PLATELET COUNT 211 x10^3/uL (140-400); RED BLOOD COUNT 5.03 x10^6/uL (3.50-5.40); RED CELL DISTRIBUTION WIDTH 14.7 % (11.5-14.5); WHITE BLOOD COUNT 14.4 x10^3/uL (4.0-11.0)
[2021-05-21 07:00] VITALS: BP 153/99
[2021-05-21] MEDS ORDERED: DEXAMETHASONE 4 MG TABLET PO SCH (08:00)
[2021-05-21] MEDS: INSULIN LISPRO 300 UNITS/3 ML VIAL. SQ SCH ×3 (08:00→16:56)
[2021-05-21] MEDS: REPAGLINIDE 0.5 MG TABLET PO SCH ×2 (08:06→16:24)
[2021-05-21] MEDS: ASPIRIN ENTERIC COATED 81 MG TABLET.DR. PO SCH (08:07)
--- NOTE | 2021-05-21 08:42 | PDOC ---
PROGRESS NOTES Date of Service: DATE: 05/21/21 TIME: 08:40 Subjective Subjective weak today Objective Objective Vital Signs Date Time Temp Pulse Resp B/P (MAP) Pulse Ox O2 Delivery O2 Flow Rate FiO2 05/21/21 08:17 Nasal Cannula 3.5 05/21/21 07:00 98.3 70 16 153/99 (117) 96 98.3 Intake and Output 05/21/21 07:00 Intake Total 120 ml Balance 120 ml Intake Oral 120 ml # Bowel Movements 1 Physical Exam Abdomen: Soft, No tenderness Heart: Regular rate Extremities: No edema General: Alert, Oriented X3 (person and place), Cooperative, No acute distress HEENT: Atraumatic Lungs: Other (on NC) MUSCULOSKELETAL: Osteoarthritic changes both hands Neuro: Normal speech, Sensation intact Psych/Mental Status: Mood NL Skin: No significant lesion Diagnosis Problem List Problems Medical Problems: (1) COVID-19 Status: Acute (2) Pneumonia Status: Acute Assessment Assessment Problems Medical Problems: (1) COVID-19 Status: Acute (2) Pneumonia Status: Acute FINAL IMPRESSION: 1. COVID pneumonia. 2. Hypoxia with respiratory failure.on oxygen N/C 3. Diabetes. 4. History of pacemaker for sick sinus syndrome. 5. Dementia. 6. Smoking history. PLAN:SNU today change to PO meds today pt eval +treat. 6 mts walk on oxygen N/c clinically improving wbc 12 down from 14. finished Remdisiveir 5 day course Dexamethasone po Lovenox po doxycycline for 5 days Plan Plan of Care Problems Medical Problems: (1) COVID-19 Status: Acute (2) Pneumonia Status: Acute Comment Review of Relevant I have reviewed the following items dusty (where applicable) has been applied. Labs Laboratory Tests Test 05/20/21 11:52 05/20/21 16:45 05/20/21 19:26 05/21/21 04:45 Glucose (Fingerstick) 103 mg/dL (70-99) 79 mg/dL (70-99) 182 mg/dL (70-99) White Blood Count 14.4 x10^3/uL (4.0-11.0) Red Blood Count 5.03 x10^6/uL (3.50-5.40) Hemoglobin 15.5 g/dL (12.0-15.5) Hematocrit 48.3 % (36.0-47.0) Mean Corpuscular Volume 96 fL (79-100) Mean Corpuscular Hemoglobin 31 pg (25-35) Mean Corpuscular Hemoglobin Concent 32 g/dL (31-37) Red Cell Distribution Width 14.7 % (11.5-14.5) Platelet Count 211 x10^3/uL (140-400) Neutrophils (%) (Auto) 87 % (31-73) Lymphocytes (%) (Auto) 4 % (24-48) Monocytes (%) (Auto) 9 % (0-9) Eosinophils (%) (Auto) 1 % (0-3) Basophils (%) (Auto) 0 % (0-3) Neutrophils # (Auto) 12.5 x10^3/uL (1.8-7.7) Lymphocytes # (Auto) 0.5 x10^3/uL (1.0-4.8) Monocytes # (Auto) 1.3 x10^3/uL (0.0-1.1) Eosinophils # (Auto) 0.1 x10^3/uL (0.0-0.7) Basophils # (Auto) 0.0 x10^3/uL (0.0-0.2) Sodium Level 140 mmol/L (136-145) Potassium Level 4.1 mmol/L (3.5-5.1) Chloride Level 109 mmol/L (98-107) Carbon Dioxide Level 24 mmol/L (21-32) Anion Gap 7 (6-14) Blood Urea Nitrogen 27 mg/dL (7-20) Creatinine 0.7 mg/dL (0.6-1.0) Estimated GFR (Cockcroft-Gault) 96.7 Glucose Level 99 mg/dL (70-99) Calcium Level 8.5 mg/dL (8.5-10.1) Test 05/21/21 07:36 Glucose (Fingerstick) 84 mg/dL (70-99) Medications Current Medications Dexamethasone (Decadron) 6 mg DAILYWBKFT PO Last administered on 05/21/21at 08:07; Start 05/21/21 at 08:00 Doxycycline Hyclate (Vibra-Tab) 100 mg BID PO Last administered on 05/20/21at 21:11; Start 05/20/21 at 12:00 Vitals/I & O Vital Sign - Last 24 Hours 05/20/21 05/20/21 05/20/21 05/20/21 09:56 10:50 11:00 15:49 Temp 97.8 97.4 97.8 97.4 Pulse 79 77 B/P (MAP) 137/83 (101) 138/100 (113) Pulse Ox 94 94 92 96 O2 Delivery Nasal Cannula Nasal Cannula Nasal Cannula Nasal Cannula O2 Flow Rate 5.0 5.0 3.5 3.5 05/20/21 05/20/21 05/20/21 05/20/21 19:00 20:00 21:41 23:19 Temp 97.4 98.3 97.4 98.3 Pulse 82 82 Resp 16 18 16 B/P (MAP) 105/80 (88) 151/107 (122) Pulse Ox 92 92 95 O2 Delivery Nasal Cannula Nasal Cannula Nasal Cannula Nasal Cannula O2 Flow Rate 3.5 3.5 3.5 3.5 05/21/21 05/21/21 05/21/21 03:24 07:00 08:17 Temp 98.1 98.3 98.1 98.3 Pulse 61 70 Resp 16 16 B/P (MAP) 145/107 (120) 153/99 (117) Pulse Ox 94 96 O2 Delivery Nasal Cannula Nasal Cannula Nasal Cannula O2 Flow Rate 3.5 3.5 3.5 Intake and Output 05/20/21 05/20/21 05/21/21 15:00 23:00 07:00 Intake Total 120 ml 0 ml Balance 120 ml 0 ml Justifications for Admission Other Justification ADDISON ROBERTSON MD May 21, 2021 08:42
--- NOTE | 2021-05-21 08:43 | SNU/HH DC ---
DISCHARGE ORDERS DISCHARGE INFORMATION: DISCHARGE DATE: May 21, 2021 FINAL DIAGNOSIS Problems Medical Problems: (1) COVID-19 Status: Acute (2) Pneumonia Status: Acute CONDITION ON DISCHARGE: Stable CODE STATUS: Code Status: Full JAIL: SNF STAY <30 DAYS: Yes HOSPICE: HOSPICE: No HOSPICE EVAL & TREAT: No LTAC: ADMIT TO LTAC: No POST DISCHARGE ORDERS: ACTIVITY ORDERS: Activity as tolerated WEIGHT BEARING STATUS: Other, see below DIET AFTER DISCHARGE: Cardiac CHECKS AFTER DISCHARGE: CHECKS AFTER DISCHARGE: Check blood press - daily, Check blood sugar, ac/hs TREATMENT/EQUIPMENT ORDERS: ADAPTIVE EQUIPMENT NEEDED: None RESPIRATORY EQUIPMENT NEEDED: Oxygen Physical Therapy For: Evalulation/Treatment DISCHARGE MEDICATIONS: Home Meds Active Scripts Dexamethasone (Decadron) 4 Mg Tablet, 6 MG PO DAILYWBKFT for pneumonia for 5 Days, #8 TAB Prov:ADDISON ROBERTSON MD 05/20/21 Aspirin (ASPIRIN EC) 81 Mg Tablet.dr, 81 MG PO DAILYWBKFT for cad for 30 Days, #30 TAB.SR Prov:ADDISON ROBERTSON MD 05/20/21 Atorvastatin Calcium (ATORVASTATIN CALCIUM) 20 Mg Tablet, 20 MG PO QHS for chol for 30 Days, #30 TAB Prov:ADDISON ROBERTSON MD 05/20/21 Doxycycline Hyclate (DOXYCYCLINE HYCLATE) 100 Mg Tablet, 100 MG PO BID for pneumonia for 5 Days, #10 TAB Prov:ADDISON ROBERTSON MD 05/20/21 Ondansetron (ZOFRAN ODT) 4 Mg Tab.rapdis, 1 TAB SL Q8HRS, #10 TAB Prov:LACI MURRAY DO 09/10/17 Reported Medications Cyproheptadine Hcl (CYPROHEPTADINE HCL) 4 Mg Tablet, 1 TAB PO BID, #60 TAB 10/07/17 Nateglinide (NATEGLINIDE) 60 Mg Tablet, 60 MG PO BID, TAB 10/07/17 Trazodone Hcl (TRAZODONE HCL) 50 Mg Tablet, 50 MG PO HS, TAB 06/25/17 Zaleplon (SONATA) 10 Mg Capsule, 10 MG PO QHS for INSOMNIA, CAP 06/25/17 Tramadol Hcl (TRAMADOL HCL) 50 Mg Tablet, 1 TAB PO TID, #90 TAB 06/25/17 ADDISON ROBERTSON MD May 21, 2021 08:43
[2021-05-21] MEDS: DOXYCYCLINE HYCLATE 100 MG TABLET PO SCH (09:42)
[2021-05-21] MEDS: LACTOBACILLUS RHAMNOSUS GG 1 CAPSULE. PO SCH (09:42)
[2021-05-21] MEDS: CHOLECALCIFEROL (VITAMIN D3) 5,000 UNIT CAPSULE PO SCH (09:42)
[2021-05-21] MEDS: ASCORBIC ACID 1,000 MG TABLET PO SCH (09:43)
[2021-05-21] MEDS: traMADol 50 MG TABLET PO SCH ×2 (09:43→13:34)
[2021-05-21] MEDS: ZINC SULFATE 220 MG CAPSULE. PO SCH (09:43)
[2021-05-21 11:08] VITALS: BP 147/88
--- NOTE | 2021-05-21 15:00 | NUR ---
REINIER following. Discussed with RN, pt from home with family, has oxygen at home. COVID-19 positive. Therapy recommending SNF. SW spoke with pt's granddaughter, she does not want pt to go to SNF, wants pt to come home and get better at home. Pt's granddaughter is agreeable to home health and would like [facility] as that is who pt has used before. [facility] Amaya RN notified. Dr. Diane notified. Discharge order for home with home health. Pt has oxygen through [facility].
[2021-05-21] MEDS: ENOXAPARIN 40 MG/0.4 ML SYRINGE. SQ SCH (15:33)
--- NOTE | 2021-05-21 16:11 | PDOC ---
ISA CHOPRA DATA MODELING ARCHITECT 05/21/21 1611: CARDIO Progress Notes Date and Time Date of Service 05/21/21 Time of Evaluation 1240 Subjective Subjective: No Chest Pain, No shortness of breath, No Palpitations Vitals Vitals Vital Signs Date Time Temp Pulse Resp B/P (MAP) Pulse Ox O2 Delivery O2 Flow Rate FiO2 05/21/21 11:08 98.2 78 16 147/88 (107) 96 Nasal Cannula 3.5 98.2 Weight Weight [ ] Input and Output Intake and Output Intake and Output 05/21/21 07:00 Intake Total 120 ml Balance 120 ml Intake Oral 120 ml # Bowel Movements 1 Laboratory Labs Laboratory Tests Test 05/20/21 16:45 05/20/21 19:26 05/21/21 04:45 05/21/21 07:36 Glucose (Fingerstick) 79 mg/dL (70-99) 182 mg/dL (70-99) 84 mg/dL (70-99) White Blood Count 14.4 x10^3/uL (4.0-11.0) Red Blood Count 5.03 x10^6/uL (3.50-5.40) Hemoglobin 15.5 g/dL (12.0-15.5) Hematocrit 48.3 % (36.0-47.0) Mean Corpuscular Volume 96 fL (79-100) Mean Corpuscular Hemoglobin 31 pg (25-35) Mean Corpuscular Hemoglobin Concent 32 g/dL (31-37) Red Cell Distribution Width 14.7 % (11.5-14.5) Platelet Count 211 x10^3/uL (140-400) Neutrophils (%) (Auto) 87 % (31-73) Lymphocytes (%) (Auto) 4 % (24-48) Monocytes (%) (Auto) 9 % (0-9) Eosinophils (%) (Auto) 1 % (0-3) Basophils (%) (Auto) 0 % (0-3) Neutrophils # (Auto) 12.5 x10^3/uL (1.8-7.7) Lymphocytes # (Auto) 0.5 x10^3/uL (1.0-4.8) Monocytes # (Auto) 1.3 x10^3/uL (0.0-1.1) Eosinophils # (Auto) 0.1 x10^3/uL (0.0-0.7) Basophils # (Auto) 0.0 x10^3/uL (0.0-0.2) Sodium Level 140 mmol/L (136-145) Potassium Level 4.1 mmol/L (3.5-5.1) Chloride Level 109 mmol/L (98-107) Carbon Dioxide Level 24 mmol/L (21-32) Anion Gap 7 (6-14) Blood Urea Nitrogen 27 mg/dL (7-20) Creatinine 0.7 mg/dL (0.6-1.0) Estimated GFR (Cockcroft-Gault) 96.7 Glucose Level 99 mg/dL (70-99) Calcium Level 8.5 mg/dL (8.5-10.1) Test 05/21/21 11:41 Glucose (Fingerstick) 99 mg/dL (70-99) Physical Exam HEENT: Neck Supple W Full Motion Chest: Symmetric LUNGS: Other (on NC) Heart: RRR (v-paced ) Extremities: No Edema Neurology: alert, follow commands, confused Assessment Assessment 1. COVID PNA 2. Encephalopathy with underlying dementia; CT head without acute findings 3. Leukocytosis 4. Mild troponin elevation; highest 0.1. Most probably type II, demand ischemia. remains CP free. 5. Chronic systolic CHF, cardiomyopathy; Echo with LVEF 30-35% 6. SSS s/p PPM ([place]). device check last month with normal function, stable lead impedances, and adequate battery life. No AFIB 7. Hypertension; controlled 8. Diabetes, II 9. COPD with long-standing h/o tobaccoism Recommendations ASA therapy Ongoing lung optimization, treatment of COVID PNA Outpatient echo to re-assess LV systolic function when recovered from COVID Consider outpatient ischemic evaluation Supportive care Justicifation of Admission Dx: Justifications for Admission: Justification of Admission Dx: Yes MOLLY CANALES MD 05/21/21 5931: CARDIO Progress Notes Assessment Assessment Patient seen and evaluated. I agree with our nurse practitioners assessment and plan. COVID PNA. Continuing present treatment. Encephalopathy with underlying dementia; CT head without acute findings Mild troponin elevation; highest 0.1. Most probably type II, demand ischemia. remains CP free. Chronic systolic CHF, cardiomyopathy; Previous Echo with LVEF 30-35%. Repeat echo as per Covid guidelines. SSS s/p PPM ([place]). device check last month with normal function, stable lead impedances, and adequate battery life. No AFIB Hypertension; controlled Diabetes, II COPD ISA CHOPRA APRN May 21, 2021 16:11 MOLLY CANALES MD May 21, 2021 16:57
--- NOTE | 2021-05-21 20:34 | NUR ---
Pt for D/C. Assisted to ED by 1924 via w/c where family was waiting. Family didnt bring pt's O2 tank. Nursing drying room supervisor Katarina was informed. OK for them to bring O2 tank, just bring it back.
--- NOTE | 2021-05-21 20:38 | NUR ---
Pt d/c with HH.
== END 2021-05-21 19:30 | disposition home health service (06) | DRG 177 ==
LOC: ER 13:04 → ED HOLD 15:08 → 5 SOUTH 05-16 01:45
PROVIDERS: ADMIT Internal Medicine; ATTEND Internal Medicine
PROC: XW033E5 Introduction of Remdesivir Anti-infective into Peripheral Vein, Percutaneous Approach, New Technology Group 5 (ICD-10-PCS; principal; 2021-05-16)
DX: U07.1 COVID-19 (principal); J12.82 Pneumonia due to coronavirus disease 2019; J96.01 Acute respiratory failure with hypoxia; G93.40 Encephalopathy, unspecified; I42.9 Cardiomyopathy, unspecified; I50.22 Chronic systolic (congestive) heart failure; J44.0 Chronic obstructive pulmonary disease with (acute) lower respiratory infection; I24.8 Other forms of acute ischemic heart disease; E11.9 Type 2 diabetes mellitus without complications; F03.90 Unspecified dementia, unspecified severity, without behavioral disturbance, psychotic disturbance, mood disturbance, and anxiety; F17.210 Nicotine dependence, cigarettes, uncomplicated; I11.0 Hypertensive heart disease with heart failure; M17.12 Unilateral primary osteoarthritis, left knee; Z82.49 Family history of ischemic heart disease and other diseases of the circulatory system; Z87.440 Personal history of urinary (tract) infections; Z95.0 Presence of cardiac pacemaker; K21.9 Gastro-esophageal reflux disease without esophagitis; M19.90 Unspecified osteoarthritis, unspecified site; Z79.899 Other long term (current) drug therapy; R79.89 Other specified abnormal findings of blood chemistry; Z90.49 Acquired absence of other specified parts of digestive tract
CPT/HCPCS: 36415; 36600; 70450; 71045; 73562; 80048; 80061; 81001; 82805; 82962; 83880; 84484; 85007; 85025; 87426; 96365; 96366; 96372; 96375; J0456; J0696; J1100; J1650; J1815; J3490; J7030; J7050; 97530-GP; 99285-25; G0378

== ENCOUNTER → 2021-08-21 | Outpatient (CLI) | payer MEDICARE ==
[~2021-08-21] MED LIST changes: +ASPI-886 PO; +ATOR20TA58 PO; +DEXA4TAB63 PO; +DOXY100T PO
--- NOTE | 2021-08-21 13:50 | CARD ---
MR#: [id number] Date of Study: 08/21/2021 Ordering Physician: MOLLY CANALES, Referring Physician: MOLLY CANALES, Tech: Radha Dooley [facility] APPROVED REPORT EXAM: Two-dimensional and M-mode echocardiogram with Doppler and color Doppler. Other Information Quality : GoodHR: 60bpm Rhythm : NSR INDICATION Cardiomyopathy Surgery/Intervention ICD/Pacemaker: 2D DIMENSIONS RVDd3.5 (2.9-3.5cm)Left Atrium(2D)3.9 (1.6-4.0cm) IVSd1.2 (0.7-1.1cm)Aortic Root(2D)3.0 (2.0-3.7cm) LVDd4.6 (3.9-5.9cm)LVOT Diameter2.0 (1.8-2.4cm) PWd1.4 (0.7-1.1cm)LVDs4.0 (2.5-4.0cm) FS (%) 13.8 %SV28.5 ml LVEF(%)29.5 (>50%) Aortic Valve AoV Peak Enoch.140.2cm/sAoV VTI29.4cm AO Peak GR.7.9mmHgLVOT Peak Enoch.114.5cm/s AO Mean GR.3mmHgAVA (VMAX)2.67cm2 Mitral Valve MV E Uhymlghh82.7cm/sMV DECEL [id number] MV A Mrtmuwze05.3cm/sE/A Ratio0.6 Pulmonary Valve PV Peak Elbytisu65.8cm/s Tricuspid Valve TR P. Glzofmmn389yg/sTR Peak Gr.45mmHg LEFT VENTRICLE The left ventricle is normal size. There is mild concentric left ventricular hypertrophy. The left ve ntricular systolic function is severely impaired. Estimated ejection fraction 20-25%. There is globa l hypokinesis of the left ventricle. Transmitral Doppler flow pattern is Grade II-pseudonormal fillin g dynamics. RIGHT VENTRICLE The right ventricle is normal size. There is normal right ventricular wall thickness. The right ventr icular systolic function is normal. ATRIA The left atrium is moderately dilated. The right atrium size is normal. The interatrial septum is int act with no evidence for an atrial septal defect or patent foramen ovale as noted on 2-D or Doppler i laina. AORTIC VALVE The aortic valve is normal in structure and function. Doppler and Color Flow revealed no significant aortic regurgitation. There is no significant aortic valvular stenosis. MITRAL VALVE The mitral valve is normal in structure and function. There is no evidence of mitral valve prolapse. There is no mitral valve stenosis. Doppler and Color-flow revealed moderate mitral regurgitation. TRICUSPID VALVE The tricuspid valve is normal in structure and function. Doppler and Color Flow revealed mild tricusp id regurgitation. Estimated PAP 50 mmHg. There is no tricuspid valve stenosis. PULMONIC VALVE The pulmonary valve is normal in structure and function. Doppler and Color Flow revealed trace pulmon ic valvular regurgitation. GREAT VESSELS The aortic root is normal in size. The ascending aorta is normal in size. The IVC is normal in size a nd collapses >50% with inspiration. PERICARDIAL EFFUSION There is no evidence of significant pericardial effusion. Critical Notification Critical Value: No <Conclusion> The left ventricular systolic function is severely impaired. Estimated ejection fraction 20-25%. Moderate mitral regurgitation. Mild tricuspid regurgitation. Estimated PAP 50 mmHg. There is no evidence of significant pericardial effusion. Signed by : Donny Kang, Electronically Approved : 08/21/2021 13:50:37
== END ==
LOC: ECHO 11:21
PROVIDERS: ATTEND Internal Medicine Cardiovascular Disease
DX: I08.1 Rheumatic disorders of both mitral and tricuspid valves (principal); R01.1 Cardiac murmur, unspecified; I42.9 Cardiomyopathy, unspecified
CPT/HCPCS: 93306